=== PATIENT | female | born 1970 | race Caucasian/White ===

== ENCOUNTER → 2016-08-31 | Outpatient (CLI) | payer OTHER ==
--- NOTE | 2016-09-04 13:05 | MM ---
Reason for exam: screening (asymptomatic). Last mammogram was performed 1 year and 4 months ago. History: Patient is postmenopausal and history of other cancer. Family history of premenopausal breast cancer in 2 maternal aunts. Benign left mammotome panel of the left breast, April 07, 2011. Benign left mammotome panel of the left breast, April 07, 2011. Benign excisional biopsy of the left breast, 2003. Benign excisional biopsy of the left breast, 2002. Taking estrogen for 7 years beginning at age 37. Physical Findings: A clinical breast exam by your physician is recommended on an annual basis and results should be correlated with mammographic findings. MG Screening Mammo w CAD Bilateral CC and MLO view(s) were taken. Prior study comparison: May 10, 2015, bilateral MG 3d diag mammo w/cad [facility]. July 17, 2013, CAD bilateral diagnostic mammogram. The breast tissue is almost entirely fat. Previous ultrasound and mammotome biopsy within the left breast. Asymmetric breast tissue in the left breast. No significant changes when compared with prior studies. ASSESSMENT: Benign, BI-RAD 2 RECOMMENDATION: Ultrasound of the left breast. (at palpable) [facility] will attempt to contact patient to return for ultrasound.
== END ==
LOC: RADMAMWWP 15:52
PROVIDERS: ATTEND Family Medicine
DX: Z12.31 Encounter for screening mammogram for malignant neoplasm of breast (principal)

== ENCOUNTER → 2016-10-02 | Outpatient (CLI) | payer OTHER ==
--- NOTE | 2016-10-03 07:09 | USB ---
Reason for exam: additional evaluation requested from abnormal screening. History: Patient is postmenopausal and history of other cancer. Family history of premenopausal breast cancer in 2 maternal aunts. Benign left mammotome panel of the left breast, April 07, 2011. Benign left mammotome panel of the left breast, April 07, 2011. Benign excisional biopsy of the left breast, 2003. Benign excisional biopsy of the left breast, 2002. Taking estrogen for 7 years beginning at age 37. Physical Findings: Nurse did not find any significant physical abnormalities on exam. US Breast Workup Limited LT Left breast ultrasound demonstrates a 0.4 x 0.2 x 0.2cm oval, too small to characterize lesion at 6 o'clock. These results were verbally communicated with the patient and result sheet given to the patient on 10/02/16. ASSESSMENT: Benign, BI-RAD 2 RECOMMENDATION: Return to routine screening mammogram schedule for both breasts. Back on schedule August 2017. Manage patient on a clinical basis.
== END | disposition home or self-care (01) ==
LOC: RADUSWWP 14:31
PROVIDERS: ATTEND Family Medicine
DX: R92.8 Other abnormal and inconclusive findings on diagnostic imaging of breast (principal)

== ENCOUNTER → 2017-04-25 | Outpatient (CLI) | payer OTHER ==
--- NOTE | 2017-04-25 15:12 | US ---
EXAMINATION TYPE: US carotid duplex BILAT DATE OF EXAM: 04/25/2017 COMPARISON: NONE CLINICAL HISTORY: CAD I25.10. EXAM MEASUREMENTS: RIGHT: Peak Systolic Velocity (PSV) cm/sec ----- Right CCA: 83.4 ----- Right ICA: 101.7 ----- Right ECA: 86.2 ICA/CCA ratio: 1.2 RIGHT: End Diastole cm/sec ----- Right CCA: 30.2 ----- Right ICA: 51.2 ----- Right ECA: 21.5 LEFT: Peak Systolic Velocity (PSV) cm/sec ----- Left CCA: 72.9 ----- Left ICA: 89.7 ----- Left ECA: 91.9 ICA/CCA ratio: 1.2 LEFT: End Diastole cm/sec ----- Left CCA: 28.4 ----- Left ICA: 43.5 ----- Left ECA: 24.8 VERTEBRALS (direction of flow): Right Vertebral: Antegrade Left Vertebral: Antegrade Rhythm: Normal No significant stenosis seen, no elevated velocities, minimal plaque noted. IMPRESSION: Minimal grayscale atheromatous plaquing with no sonographic evidence of hemodynamically significant stenosis within either carotid arterial system.
== END | disposition home or self-care (01) ==
LOC: RADUSWWP 13:54
PROVIDERS: ATTEND Family Medicine
DX: I65.23 Occlusion and stenosis of bilateral carotid arteries (principal); I25.10 Atherosclerotic heart disease of native coronary artery without angina pectoris
CPT/HCPCS: 93880

== ENCOUNTER → 2017-08-07 | Outpatient (CLI) | payer OTHER ==
[2017-08-07 12:25] LABS: HCT 42.9 % (34.0-46.0); HGB 14.6 gm/dL (11.4-16.0); MCH 31.1 pg (25.0-35.0); MCHC 33.9 g/dL (31.0-37.0); MCV 91.6 fL (80.0-100.0); Mean Platelet Volume 7.2; Platelet Count 238 k/uL (150-450); RBC 4.69 m/uL (3.80-5.40); RDW 12.1 % (11.5-15.5); WBC 11.5 k/uL (3.8-10.6)
[2017-08-07 12:35] LABS: Appearance,Urine Cloudy (Clear); Bacteria,Urine Rare /hpf; Bilirubin,Urine Negative (Negative); Blood,Urine Negative (Negative); Color,Urine Yellow; Glucose,Urine (UA) Negative (Negative); Ketones,Urine Negative (Negative); Leukocyte Esterase,Urine Negative (Negative); Mucus,Urine Occasional /hpf; PH, Urine 5.5 (5.0-8.0); Protein,Urine Trace (Negative); Specific Gravity,Urine 1.024 (1.001-1.035); Squamous Epithelial Cell,Urine 11 /hpf (0-4); WBC,Urine 1 /hpf (0-5)
[2017-08-07 12:37] LABS: ALT 26 U/L (9-52); AST 16 U/L (14-36); Albumin 3.9 g/dL (3.5-5.0); Alkaline Phosphatase 99 U/L (38-126); Anion Gap 10 mmol/L; Blood Urea Nitrogen 19 mg/dL (7-17); Calcium 9.8 mg/dL (8.4-10.2); Carbon Dioxide 26 mmol/L (22-30); Chloride 105 mmol/L (98-107); Glucose 116 mg/dL (74-99); Phosphorus 3.7 mg/dL (2.5-4.5); Potassium 4.7 mmol/L (3.5-5.1); Sodium 141 mmol/L (137-145); Total Bilirubin 0.3 mg/dL (0.2-1.3); Total Protein 6.8 g/dL (6.3-8.2)
== END | disposition home or self-care (01) ==
LOC: LABWHC1 11:54
PROVIDERS: ATTEND Internal Medicine
DX: D64.9 Anemia, unspecified (principal); E83.39 Other disorders of phosphorus metabolism; N39.0 Urinary tract infection, site not specified
CPT/HCPCS: 36415; 80053; 81001; 84100; 85027

== ENCOUNTER → 2017-08-30 | Outpatient (CLI) | payer OTHER ==
--- NOTE | 2017-08-31 05:26 | MR ---
EXAMINATION TYPE: MR cspine/lspine wo con DATE OF EXAM: 08/30/2017 COMPARISON: MRI cervical spine May 09, 2012. HISTORY: Headache with neck pain causing pain or weakness into both arms since 1998 per patient. Back and hip pain since 1998 causing pain into bilateral buttocks and left lower extremity per patient. N calvin and back pain per order. TECHNIQUE: Multiplanar, multisequence imaging of the cervical and lumbar spine are performed without IV contrast. FINDINGS: C-SPINE: FINDINGS: Coronal images redemonstrate slight dextroconvex scoliotic curvature centered at the cervic othoracic junction. Sagittal images of the cervical spine show the craniocervical junction to remain within normal limits. The cervical and upper thoracic spinal cord is normal in caliber and signal. Vertebral alignment is stable with slight reversal of normal cervical curvature redemonstrated. There is mild disc space narrowing C3-C4 and C5-C6 levels redemonstrated. Otherwise the vertebral body and intravertebral disk heights are normal. Posterior disc herniation is now present at C5-C6 level on sagittal image 8. The bone marrow signal intensity is within normal limits. No significant spurring i s seen. Axial images show the C2-C3 level to appear within normal limits. At C3-C4 level there is some posterior spurring seen best on sagittal image 8 but spinal canal is pre served and bilateral neural foramina are patent. No significant disc herniation is seen. No significa nt change from prior. Axial images at C4-C5 level redemonstrate central disc protrusion on axial images less well seen on s agittal images mildly effacing anterior thecal sac on image 32, bilateral neural foramina are patent. No significant change from prior study is identified. Axial images at C5-C6 level redemonstrate a right paracentral disc protrusion effacing anterior theca l sac without stable with some new marginal spurring and uncovertebral facet arthropathy causing mild left-sided neural foraminal narrowing. Right-sided neural foramina is patent. Progression of degener ative findings at this level is felt present from prior. Axial images at C6-C7 show new small right paracentral disc protrusion mildly effacing the anterior t hecal sac and axial image 18, bilateral neural foramina are patent. Axial images at C7-T1 level are felt to remain within normal limits. Thyroid gland is not well-visualized on this or prior exam and may be small in size. IMPRESSION: Loss of normal cervical curvature with multilevel degenerative changes redemonstrated, so me increased or new degenerative changes are felt present at C5-C6 and C6-C7 level as detailed above. L-SPINE: Sagittal images of the lumbar spine show vertebral body heights and alignment to appear satisfactory. There is progression of multilevel disc desiccation from prior. There is persistent mild to moderat e disc space narrowing L5-S1 level otherwise the space heights are fairly well-maintained. There is p ersistent posterior disc herniation L5-S1 level. The conus medullaris remains normal in position and signal ending at T12-L1 disc space. The bone marrow signal intensity remains overall heterogeneous. No significant spurring is seen. Axial images redemonstrate the T12-L1, L1-L2, L2-L3, L3-L4, and L4-L5 levels all to appear within nor mal limits. Images at L5-S1 level redemonstrated central disc protrusion but the spinal canal is preserved hands the bilateral neural foramina are patent. No significant change from prior. There is partial visualization of 1.6 cm partially exophytic posterior T2 hyperintense lesion in the left kidney axial image 30 increased in size from prior study still favoring simple cyst. IMPRESSION: Some progression in disc desiccation from prior study. Degenerative changes L5-S1 level r edemonstrated without significant interval change.
== END | disposition home or self-care (01) ==
LOC: RADMRIMAIN 17:11
PROVIDERS: ATTEND Family Medicine
DX: M47.817 Spondylosis without myelopathy or radiculopathy, lumbosacral region (principal); M48.02 Spinal stenosis, cervical region; M99.71 Connective tissue and disc stenosis of intervertebral foramina of cervical region; M50.221 Other cervical disc displacement at C4-C5 level; M47.812 Spondylosis without myelopathy or radiculopathy, cervical region; M46.82 Other specified inflammatory spondylopathies, cervical region; M43.8X2 Other specified deforming dorsopathies, cervical region
CPT/HCPCS: 72141; 72148

== ENCOUNTER → 2017-09-25 | Outpatient (CLI) | payer OTHER ==
--- NOTE | 2017-09-26 07:02 | US ---
EXAMINATION TYPE: US kidneys/renal and bladder DATE OF EXAM: 09/25/2017 COMPARISON: 02/25/2016 CLINICAL HISTORY: N28.1 Cyst Of Kidney. Hx of left renal cyst EXAM MEASUREMENTS: Right Kidney: 9.4 x 4.4 x 4.4 cm Left Kidney: 10.0 x 4.3 x 4.7 cm Right Kidney: No hydronephrosis or masses seen Left Kidney: Lateral upper pole cystic appearing lesion seen - 1.9 x 1.9 x 1.8 cm Bladder: Mildly distended. Fold seen. Bilateral Jets not seen IMPRESSION: 1. Cystic area involving the left kidney is stable from prior exam. 2. Limited assessment of the bladder due to incomplete distention
== END | disposition home or self-care (01) ==
LOC: RADUSWWP 15:53
PROVIDERS: ATTEND Internal Medicine
DX: N28.1 Cyst of kidney, acquired (principal)
CPT/HCPCS: 76770

== ENCOUNTER → 2017-09-26 | Outpatient (CLI) | payer OTHER ==
[2017-09-26 11:54] VITALS: BP 117/75; PULSE 72; RESP 20
--- NOTE | 2017-09-26 12:18 | P.PN ---
Progress Note - Text Progress Note Date: 09/26/17 Patient returns for followup for chronic neck and back pain with radiation to left arm and left leg. Patient last underwent procedures at our facility in October 2014 and was last seen in June 2015, at which time she was undergoing quadruple coronary bypass. Patient complains of pain that is worse in her neck ; she has been taking [place] and Lyrica medications for pain from PCP with good relief, but she states he will not prescribe these any longer. Patient denies adverse drug effects from medications. Today, pt denies new-onset weakness, bowel/bladder incontinence, or any other signs or symptoms of cauda equina syndrome. There are no signs of acute intoxication, and no indications of medication diversion or overuse. In addition to above, 13-point review of systems is also negative for chest pain , shortness of breath, changes in vision, changes in hearing, new onset weakness , abdominal pain, diarrhea, extreme fatigue, malaise, fever, skin changes, homicidal or suicidal ideation, or bowel or bladder incontinence. Vital Signs: Reviewed in EMR Gen: WDWN, AAOx3, NAD HEENT: NCAT, EOMI, hearing grossly normal Pulm: resp unlabored Abd: soft, NT, ND Neck: supple, trachea midline ROM in flexion cervical spine: reduced ROM in extension cervical spine: reduced Cervical paravertebral tenderness: + Cervical Facet tenderness: + bilateral, L > R Spurling's: + LUE Upper extremity: decreased rib bender strength secondary to pain Imaging: MRI C-spine from 08/30/2017 demonstrates disc herniation at the C4-C5 level effacing the ventral thecal sac. There is also evidence of uncovertebral joint hypertrophy at multiple levels in the C-spine. In the lumbar spine there is redemonstration of an L5-S1 central disc protrusion. All other levels are within normal limits. Assessment: 1. lumbar disc herniation 2. cervical spondylosis 3. cervical radiculitis Plan: 1. Explanation: Opioid and psychological risk scores were reviewed. Diagnoses , prognoses, and multiple treatment options including but not limited to physical therapy, interventional therapies, adjuvant medical therapies, narcotic medication therapies, and surgery were discussed with the patient and all questions were answered to the patient's satisfaction. 2. Opioid agreement: no opioids prescribed today 3. Counseling: The patient was counseled extensively on SMOKING CESSATION, BODY MASS INDEX, EXERCISE. Specifically, the patient was instructed regarding the importance of smoking cessation, weight control, and exercise in the context of both chronic pain and overall health. 4. Procedures: cervical HAYDEE series C7-T1 5. Consultations: Dr. Henderson for non-interventional pain management 6. Investigations: UDS not done today, MAPS queried and appropriate 7. Medications: none prescribed 8. Disposition: f/u for procedure as scheduled PQRS measures: 1-Patient's medications are documented in the chart. 2-Tobacco use is positive, counseling given 3-Patient has not had a pneumococcal vaccine. 4-Advanced care planning discussed, patient unable to give. 5-Opioid contract signed with the patient. 6-Pain positive, follow-up visit or procedure scheduled 7-Patient's blood pressure measured and documented, and patient will follow up with the primary care due to hypertension. 8-Patient's weight was measured, and body mass index ABOVE the normal limits, and counseling was done. Patient instructed to follow up with PCP. 9-Patient WAS NOT identified as an unhealthy alcohol user.
== END | disposition home or self-care (01) ==
LOC: PNWHC3 11:31
PROVIDERS: ATTEND Anesthesiology
DX: M51.16 Intervertebral disc disorders with radiculopathy, lumbar region (principal); M47.22 Other spondylosis with radiculopathy, cervical region; Z79.891 Long term (current) use of opiate analgesic; Z79.899 Other long term (current) drug therapy
CPT/HCPCS: 99211

== ENCOUNTER 2017-11-07 08:14 | Day surgery (SDC) | payer OTHER ==
[2017-11-01 11:11] VITALS: BMI 26.7
[2017-11-07] MEDS ORDERED: LACTATED RINGERS 1,000 ML IV SCH (08:30)
[2017-11-07 09:01] VITALS: RESP 18; TEMP 97.9
[2017-11-07] MEDS ORDERED: LIDOCAINE 1% 20 ML VIAL (10MG/ML) FOR IV START INTRADERMA ONE (09:17)
--- NOTE | 2017-11-07 09:46 | P.PCN ---
Date of Procedure: 11/07/17 Surgeon: Misael Byrd Pathology: none sent Condition: stable Disposition: PACU Description of Procedure: PREOPERATIVE DIAGNOSIS: Cervical radiculopathy. POSTOPERATIVE DIAGNOSIS: Cervical radiculopathy. PROCEDURE 1. Cervical epidural steroid injection under fluoroscopic guidance, C7-T1 level. 2. Cervical epidurogram. ANESTHESIA: Local anesthesia with 1% lidocaine and IV sedation with versed/ fentanyl. EBL: Minimal PROCEDURE INDICATION: The patient with neck pain and radiculitis unresponsive to conservative treatment consents for procedure, IRINEO #1 today. No use of blood thinners. PROCEDURE DESCRIPTION / TECHNIQUE: The patient was seen and identified in the preoperative area. Risks, benefits, complications, and alternatives were discussed with the patient (including but not limited to incomplete pain relief, bleeding, infection, nerve damage, and allergies to medications), the patient agreed to proceed with the procedure and signed the consent after all questions were answered. Patient was taken to the OR and time out was completed to verify proper patient , position, laterality of pain, and allergies. Pt was placed in the prone position. A pillow was placed under the patients chest to increase the cervical interlaminar space. The cervical area was prepped and draped in the usual sterile fashion. Critical pause was taken. Vital signs were closely monitored during the procedure. Conscious sedation was used during the procedure to decrease patients anxiety. Using anterior-posterior fluoroscopy, the C7-T1 interlaminar space was identified and the skin over this site was marked and then infiltrated with 1% lidocaine subcutaneously in a paramedian fashion. Subsequently, a 20-gauge 3-1/2 -inch Tuohy epidural needle was inserted and advanced toward the epidural space by means of the loss of resistance technique and guided by AP and lateral fluoroscopy. After negative aspiration for blood or CSF and in the absence of paresthesias, the correct needle position in the epidural space was verified with the injection of 1 mL of the water soluble contrast dye Isovue 200 and observing an excellent epidurogram with the epidural spread of the dye, after negative aspiration for blood and CSF and in the absence of paresthesias. Again after negative aspiration, a 3 ml mixture containing 20 mg of Decadron and 1 ml of preservative free Normal Saline solution was injected and a washout of epidurogram was seen. Needle was withdrawn intact, skin was cleansed, and bandages were applied. COMPLICATIONS: None COMMENTS: DISPOSITION / PLANS: The patient was placed in a supine position and transferred to the recovery area in a stable condition for observation. There was no evidence of upper extremity motor or sensory deficit after the procedure. Patient was discharged from the recovery room after meeting discharge criteria. Home discharge instructions were given to the patient by the staff. The patient was reexamined prior to discharge. The patient will schedule a repeat IRINEO in 4-6 weeks.
[2017-11-07] MEDS ORDERED: IV FLUID CONTINUATION 1,000 ML IV ONE (09:48)
--- NOTE | 2017-11-07 09:52 | FL ---
EXAMINATION TYPE: FL guided pain mgmt statistic DATE OF EXAM: 11/07/2017 HISTORY: Pain CERVICAL EPIDURAL STEROID INJECTION, 6SEC FL TIME
[2017-11-07] MEDS ORDERED: ONDANSETRON 4 MG/2 ML VIAL IVP ONE (09:56)
[2017-11-07 10:15] VITALS: BP 102/69; PULSE 64
== END 2017-11-07 10:40 | disposition home or self-care (01) ==
LOC: ORPAIN 08:14
PROVIDERS: ATTEND Anesthesiology
DX: M54.12 Radiculopathy, cervical region (principal); Z88.6 Allergy status to analgesic agent; Z88.5 Allergy status to narcotic agent; Z91.030 Bee allergy status; I10 Essential (primary) hypertension; E78.5 Hyperlipidemia, unspecified
CPT/HCPCS: 62321; J2250; J1100; J2405; J3010; Q9966

== ENCOUNTER 2017-11-22 05:59 | Day surgery (SDC) | payer OTHER ==
[2017-11-19 16:21] VITALS: BMI 27.6
[2017-11-22] MEDS ORDERED: LACTATED RINGERS 1,000 ML IV SCH (06:00)
[2017-11-22 06:31] VITALS: TEMP 98.7
[2017-11-22] MEDS ORDERED: LIDOCAINE 1% 20 ML VIAL (10MG/ML) FOR IV START INTRADERMA ONE (06:44)
[2017-11-22] MEDS ORDERED: IV FLUID CONTINUATION 1,000 ML IV ONE (07:18)
--- NOTE | 2017-11-22 07:21 | P.PCN ---
Date of Procedure: 11/22/17 Procedure(s) Performed: . PROCEDURE 1. Cervical epidural steroid injection under fluoroscopic guidance, C7-T1 2. Cervical epidurogram. PREOPERATIVE DIAGNOSIS: 1- Cervical herniated Disc Diseases 2- Cervical radiculopathy. POSTOPERATIVE DIAGNOSIS: : 1- Cervical herniated Disc Diseases , 2- Cervical radiculopathy. ANESTHESIA: Local anesthesia with 1% lidocaine2 ml ,and IV sedation with Versed 2 mg and Fentanyl 100 mcg. EBL 0 PROCEDURE INDICATION: The patient with neck pain and radiculitis unresponsive to conservative treatment consents for procedure. PROCEDURE DESCRIPTION / TECHNIQUE: The patient was seen and identified in the preoperative area. Risks, benefits, complications, including but not limited to infections ,bleeding , allergic reactions to the medications ,and not complete pain releife, and alternatives were discussed with the patient, the patient agreed to proceed with the procedure and signed the consent. Patient was taken to the OR and time out was completed. The patient was placed in the prone position on the procedure table. A pillow was placed under the patients chest to increase the cervical interlaminar space. The cervical area was prepped and draped in the usual sterile fashion. Vital signs were closely monitored during the procedure. Conscious sedation was used during the procedure to decrease patients anxiety. Using anterior-posterior fluoroscopy, the C7-T1 interlaminar space was identified and the skin over this site was marked and then infiltrated with 1% lidocaine subcutaneously. Subsequently, a 20-gauge 3-1/2-inch Tuohy epidural needle was inserted and advanced toward the epidural space by means of the `` hanging-drop technique and guided by AP and lateral fluoroscopy. The correct needle position in the epidural space was verified with the injection of 2 mL of the water soluble contrast dye Isovue-200 and observing an excellent epidurogram with the epidural spread of the dye, after negative aspiration for blood and CSF and in the absence of paresthesias. Again after negative aspiration, mixture containing 20 mg Dexamethasone and 2 ml of preservative- free normal saline injected and a washout of epidurogram was seen. Needle was withdrawn intact, skin was cleansed, and bandages were applied. Complications= none. Disposition= patient was placed in supine position and transferred to the recovery room area in stable condition and there was no evidence of upper or lower extremity motor or sensory deficit after the procedure patient was discharged from recovery room after discharge criteria met and home discharge instructions was given by the staff and patient will follow with the pain clinic in 2-4 weeks
[2017-11-22] MEDS ORDERED: ONDANSETRON 4 MG/2 ML VIAL IVP ONE (07:28)
[2017-11-22 07:33] VITALS: RESP 16
[2017-11-22 07:44] VITALS: BP 145/69; PULSE 58
--- NOTE | 2017-11-22 08:12 | FL ---
EXAMINATION TYPE: FL guided pain mgmt statistic DATE OF EXAM: 11/22/2017 COMPARISON: NONE HISTORY: Neck and back pain TECHNIQUE: Fluoroscopy. FINDINGS/IMPRESSION: Fluoroscopic guidance was provided during procedure performed by Dr. Mckeon. A total of 1 seconds of fluoroscopic time was utilized during the procedure and 1 spot images was ac quired demonstrating localization of the cervical thoracic spine.
== END 2017-11-22 07:59 | disposition home or self-care (01) ==
LOC: ORPAIN 05:59
PROVIDERS: ATTEND Specialist
DX: M50.10 Cervical disc disorder with radiculopathy, unspecified cervical region (principal); I25.10 Atherosclerotic heart disease of native coronary artery without angina pectoris; E89.0 Postprocedural hypothyroidism; Z86.73 Personal history of transient ischemic attack (TIA), and cerebral infarction without residual deficits; Z88.5 Allergy status to narcotic agent; Z91.030 Bee allergy status
CPT/HCPCS: 62321; J2250; J1100; J2405; J3010; Q9966

== ENCOUNTER → 2018-01-09 | Outpatient (CLI) | payer OTHER | END | disposition home or self-care (01) | LOC: LABWHC1 11:18 | PROVIDERS: ATTEND Family Medicine | DX: M79.662 Pain in left lower leg (principal) | CPT/HCPCS: 36415; 85379 ==

== ENCOUNTER → 2018-08-22 | Outpatient (CLI) | payer OTHER ==
--- NOTE | 2018-08-22 14:52 | XR ---
EXAMINATION TYPE: XR chest 2V DATE OF EXAM: 08/22/2018 COMPARISON: 10/06/2015 HISTORY: 48-year-old female cough and congestion, J20.8 TECHNIQUE: Frontal and lateral views FINDINGS: Heart normal size. Median sternotomy wires are present with post-CABG clips. Stable opacity medial ri ght cardiophrenic angle and at the cardiac apex suggesting a prominent epicardial fat pad. No consoli dation or pleural effusion otherwise seen. IMPRESSION: Stable findings suggesting a prominent epicardial fat pad. No acute cardiopulmonary process.
== END | disposition home or self-care (01) ==
LOC: RADXRMAIN 11:30
PROVIDERS: ATTEND Family Medicine
DX: J20.8 Acute bronchitis due to other specified organisms (principal)
CPT/HCPCS: 71046

== ENCOUNTER → 2018-09-06 | Outpatient (CLI) | payer OTHER ==
[2018-09-06 16:27] LABS: Hepatitis A Antibody IgM Non-Reactive (Non-Reactive); Hepatitis B Core IgM Non-Reactive (Non-Reactive)
[2018-09-06 17:24] LABS: HIV 1 AB Non-Reactive (Non-Reactive); HIV AB P24 Non-Reactive (Non-Reactive); HIV P24 AG Non-Reactive (Non-Reactive)
[2018-09-09 02:55] LABS: Varicella IgM Antibody 0.38 INDEX (<=0.90)
[2018-09-09 05:49] LABS: Herpes simplex IgG I Ab 0.19 (< or = 0.90); Herpes simplex IgG II Ab 0.15 (< or = 0.90)
[2018-09-10 09:27] LABS: Mumps Virus IgM Antibody 0.26 IV (<=0.79)
== END | disposition home or self-care (01) ==
LOC: LABWHC1 10:09
PROVIDERS: ATTEND Family Medicine
DX: I25.10 Atherosclerotic heart disease of native coronary artery without angina pectoris (principal); J42 Unspecified chronic bronchitis; Z95.1 Presence of aortocoronary bypass graft
CPT/HCPCS: 36415; 80074; 86694; 86695; 86696; 86735; 86762; 86765; 86780; 86787; 87390

== ENCOUNTER → 2018-09-20 | Outpatient (CLI) | payer OTHER ==
[~2018-09-20] MED LIST: REGADENOSON 0.4 MG/5 ML SYRINGE IV ONE
--- NOTE | 2018-09-20 10:52 | NM ---
EXAMINATION TYPE: NM stress lexiscan cardiolite DATE OF EXAM: 09/20/2018 COMPARISON: NONE HISTORY: Atrial fibrillation, chest pain, shortness breath, palpitations, hyperlipidemia, prior CVA, prior OH, prior catheterization, family history of coronary artery disease, and history of tobacco ab use TECHNIQUE: After the intravenous administration of 10.02 mCi Tc 99m Sestamibi - Cardiolite resting S PECT images acquired 45 minutes post injection. The patient received 0.4mg Lexiscan, 25.6 mCi Tc 99m Sestamibi - Stress images obtained [address] injection FINDINGS: Review of stress and rest SPECT images demonstrates no reversible perfusion abnormality. There is a fixed moderate defect of the cardiac apex and anterior wall in the distribution of the left anterior descending coronary artery. Gated analysis shows normal wall motion with an estimated left ventricula r ejection fraction of 53 %. TID is calculated at 0.98, within normal limits. IMPRESSION: 1. No scintigraphic evidence for reversible ischemia. 2. Moderate fixed defect indicating prior infarct in the distribution of the left anterior descending coronary artery.
--- NOTE | 2018-09-20 12:39 | EST ---
EXERCISE STRESS DATE OF SERVICE: 09/20/2018 AGE: 48 SEX: Female HT: 5'4" WT: 174 pounds PROTOCOL: Lexiscan Cardiolite STAGE: DURATION OF EXERCISE: HEART RATE REST: 60 BLOOD PRESSURE REST: 127/76 MAXIMUM HEART RATE ACHIEVED: 89 MAXIMUM BLOOD PRESSURE: 164/84 85% MPHR: 100% MPHR: METS: INDICATIONS: Atrial fibrillation. CLINICAL INFORMATION: This is a Lexiscan stress test. Baseline EKG revealed normal sinus rhythm with inferolateral ST-segment abnormality of a nonspecific type. The patient was administered Lexiscan as per protocol. Heart rate changed from 60 to 89 beats per minute. Blood pressure changed from 127/76 to 164/84. The patient did not have any clear-cut angina. She had some chest tightness, pressure. There were isolated PVCs and couplets noted. EKG changes that were noted at baseline became slightly more obvious, but this remains an inconclusive stress test by EKG criteria. The patient did not have any clear-cut angina. By EKG criteria, this is considered as an inconclusive Lexiscan stress test with ventricular ectopy after Lexiscan administration. FINAL IMPRESSION: 1. Inconclusive stress test by EKG criteria. 2. The nuclear scan results which are more pertinent will be reported by the radiologist. MMODL / IJN: [id number] /
== END | disposition home or self-care (01) ==
LOC: RADNMMAIN 07:54
PROVIDERS: ATTEND Family Medicine
DX: I48.91 Unspecified atrial fibrillation (principal); Z88.6 Allergy status to analgesic agent; Z88.8 Allergy status to other drugs, medicaments and biological substances
CPT/HCPCS: 93017; 78452; A9500; J2785

== ENCOUNTER → 2018-10-25 | Outpatient (CLI) | payer OTHER ==
--- NOTE | 2018-10-30 09:15 | P.ARTDOP ---
Arterial Doppler LOWER EXTREMITY ARTERIAL DOPPLER: DATE OF SERVICE: 10/25/2018 Reason for study: Claudication. Doppler waveforms: Multiphasic bilaterally throughout. Pulse volume recording: []. Pressure gradients: Mild gradient across the knee on the left. Ankle-brachial indices: Greater than 1 on the right and 0.93 on the left. Toe pressures: [] on the right, [] on the left Impression: Normal right side. Possible very mild left SFA disease..
== END | disposition home or self-care (01) ==
LOC: RADUSWWP 13:36
PROVIDERS: ATTEND Family Medicine
DX: I70.213 Atherosclerosis of native arteries of extremities with intermittent claudication, bilateral legs (principal)
CPT/HCPCS: 93923

== ENCOUNTER → 2019-03-27 | Outpatient (CLI) | payer OTHER ==
--- NOTE | 2019-03-28 09:21 | MM ---
Reason for exam: screening (asymptomatic). Last mammogram was performed 2 years and 7 months ago. History: Patient is postmenopausal and history of other cancer. Family history of premenopausal breast cancer in 2 maternal aunts. Benign left mammotome panel of the left breast, April 07, 2011. Benign left mammotome panel of the left breast, April 07, 2011. Benign excisional biopsy of the left breast, 2003. Benign excisional biopsy of the left breast, 2002. Taking estrogen for 7 years beginning at age 37. Physical Findings: A clinical breast exam by your physician is recommended on an annual basis and results should be correlated with mammographic findings MG Screening Mammo w CAD Bilateral CC and MLO view(s) were taken. Prior study comparison: August 31, 2016, bilateral MG screening mammo w CAD. May 10, 2015, bilateral MG 3d diag mammo w/cad [facility]. There are scattered fibroglandular densities. Previous mammotome biopsy in the left breast. There is chronic nodularity in the left breast. No significant changes when compared with prior studies. ASSESSMENT: Benign, BI-RAD 2 RECOMMENDATION: Routine screening mammogram of both breasts in 1 year.
== END | disposition home or self-care (01) ==
LOC: RADMAMWWP 10:24
PROVIDERS: ATTEND Family Medicine
DX: Z12.31 Encounter for screening mammogram for malignant neoplasm of breast (principal)
CPT/HCPCS: 77067

== ENCOUNTER → 2019-05-07 | Outpatient (CLI) | payer OTHER ==
--- NOTE | 2019-05-07 11:15 | FL ---
Modified barium swallow. HISTORY: Dysphagia. Modified barium swallow was performed with the department of speech pathology. The patient was prese nted with various consistencies of barium. There is no evidence for aspiration or penetration. Full report is to follow from the department of speech pathology. There may be hypertrophy of the cricopharyngeus musculature. Impression: No evidence for aspiration or penetration. I suspect hypertrophy of the cricopharyngeus m usculature.
== END | disposition home or self-care (01) ==
LOC: RADFLMAIN 10:28
PROVIDERS: ATTEND Family Medicine
DX: R13.10 Dysphagia, unspecified (principal)
CPT/HCPCS: 74230

== ENCOUNTER 2019-06-22 11:34 | Emergency (ER) | payer OTHER ==
[2019-06-22 11:52] VITALS: BP 123/79; PULSE 92; RESP 18; TEMP 97.5
--- NOTE | 2019-06-22 13:36 | XR ---
EXAMINATION TYPE: XR chest 2V DATE OF EXAM: 06/22/2019 HISTORY: cough, sob. REFERENCE: Previous study dated 3 11/22/2018. FINDINGS: There has been a midline sternotomy. Heart size upper limits of normal. There is a right-sided epicardial fat pad. Lungs are clear. Pleura l space are clear. IMPRESSION: BORDERLINE CARDIOMEGALY.
--- NOTE | 2019-06-22 14:23 | ED ---
ENT HPI - General Source: patient Mode of arrival: ambulatory Limitations: no limitations <Bren Walters - Last Filed: 06/22/19 14:50> <Erika Villasenor - Last Filed: 06/25/19 21:39> - General Chief complaint: ENT Stated complaint: med reaction Time Seen by Provider: 06/22/19 12:07 - History of Present Illness Initial comments: Patient is a 48-year-old female presenting to the emergency Department with complaints of a possible ALLERGIC reaction to her antibiotic. Patient was prescribed azithromycin 3 days ago for possible strep throat. Patient states she had one episode of vomiting 2 days ago and then now is having increased and sore throat as well as left ear pain and a continued cough. Patient admits to mild shortness of breath with the cough. No chest pain, no fever. She is very concerned that this cough is affecting her heart. Patient has an extensive heart history and heart disease. She is requesting EKG. Patient denies any nausea, vomiting, diarrhea. She has no other complaints at this time. Upon arrival to the ER, her vital signs are stable. (Bren Walters) - Related Data Home Medications Medication Instructions Recorded Confirmed ALPRAZolam [Xanax] 2 mg PO HS PRN 10/15/13 11/22/17 Buta/APAP/Caf/Cod 75-504-39-30 1 - 2 each PO Q6H PRN 10/15/13 11/22/17 [Fioricet w/Cod 43-343-09-30MG] Dexlansoprazole [Dexilant] 60 mg PO Q48H 10/15/13 11/22/17 Estrogens, Conjugated [Premarin] 0.3 mg PO DAILY PRN 10/15/13 11/22/17 Cholecalciferol [Vitamin D3 (25 2,000 unit PO DAILY 10/29/13 11/22/17 Mcg = 1000 Iu)] Aspirin 81 mg PO DAILY 02/17/15 11/19/17 Linaclotide [Linzess] 145 mcg PO DAILY PRN 02/17/15 11/22/17 Ascorbic Acid [Vitamin C] 2,000 mg PO DAILY 09/26/17 11/19/17 Biotin 5,000 mcg PO DAILY 09/26/17 11/19/17 Iron 18 mg PO DAILY 09/26/17 11/19/17 Levothyroxine Sodium [Levo-T] 150 mcg PO DAILY 09/26/17 11/19/17 Metoprolol Tartrate [Lopressor] 150 mg PO DAILY 10/08/17 11/19/17 Pregabalin [Lyrica] 75 mg PO HS 11/01/17 11/22/17 Rosuvastatin Calcium [Crestor] 10 mg PO Q48H 11/07/17 11/22/17 Naproxen Sodium [Aleve] 440 - 880 mg PO BID PRN 11/19/17 11/22/17 Previous Rx's Medication Instructions Recorded Amoxicillin 500 mg PO BID 5 Days #10 capsule 06/22/19 predniSONE [Deltasone] 20 mg PO BID 5 Days #10 tab 06/22/19 Allergies Allergy/AdvReac Type Severity Reaction Status Date / Time venom-honey bee Allergy Severe Anaphylaxis Verified 06/22/19 11:52 [bee venom (honey bee)] codeine phosphate Allergy Chest Pain Verified 06/22/19 11:52 [From Tylenol-Codeine #3] tramadol HCl [From Ultram] AdvReac Hallucinati Verified 06/22/19 11:52 ons Review of Systems ROS Other: All systems not noted in ROS Statement are negative. <Bren Walters - Last Filed: 06/22/19 14:50> ROS Other: All systems not noted in ROS Statement are negative. <Erika Villasenor - Last Filed: 06/25/19 21:39> ROS Statement: Those systems with pertinent positive or pertinent negative responses have been documented in the HPI. Past Medical History Past Medical History: Atrial Fibrillation, Coronary Artery Disease (CAD), Cancer, Chest Pain / Angina, CVA/TIA, GERD/Reflux, Myocardial Infarction ([place]), Skin Disorder, Thyroid Disorder Additional Past Medical History / Comment(s): 1 LEAKY heart valve, IBS, hx CERVICAL CA, cardiomyopathy, BRONCHITIS, cervical DDD, facet joint syndrome, hx goiter. HX SEPSIS, TIA 11/2016. CYST LT KIDNEY. BLISTERS ON SHOULDERS D/T SUN. Last Myocardial Infarction Date:: 2007 History of Any Multi-Drug Resistant Organisms: None Reported Past Surgical History: Breast Surgery, Cardiac Ablation, Cholecystectomy, Coronary Bypass/CABG, Heart Catheterization, Hysterectomy, Tubal Ligation Additional Past Surgical History / Comment(s): COLONOSCOPY, EGD, THYROIDECTOMY, surgery for CERVICAL CANCER, LT BREAST BX X4, PAIN CLINIC PROCEDURES, LEFT ELBOW surgery, QUADRUPLE BYPASS 2016, MARSHALL eye surgery age 5 Past Anesthesia/Blood Transfusion Reactions: Motion Sickness, Postoperative Nausea & Vomiting (PONV) Past Psychological History: Bipolar, Depression, Panic Disorder Smoking Status: Current every day smoker - Past Family History Father Family Medical History: Cancer <Bren Walters - Last Filed: 06/22/19 14:50> General Exam Limitations: no limitations <Bren Walters - Last Filed: 06/22/19 14:50> - General Exam Comments Initial Comments: GENERAL: Well-appearing, well-nourished and in no acute distress. HEAD: Atraumatic, normocephalic. EYES: Pupils equal round and reactive to light, extraocular movements intact, sclera anicteric, conjunctiva are normal. ENT: Left TM is slightly bulging, mildly erythematous, right TM is normal. Nares patent, oropharynx clear without exudates. Moist mucous membranes. NECK: Normal range of motion, supple without lymphadenopathy or JVD. LUNGS: Breath sounds clear to auscultation bilaterally and equal. No wheezes rales or rhonchi. HEART: Regular rate and rhythm without murmurs, rubs or gallops. ABDOMEN: Soft, nontender, normoactive bowel sounds. No guarding, no rebound. No masses appreciated. : Deferred EXTREMITIES: Normal range of motion, no pitting or edema. No clubbing or cyanosis. NEUROLOGICAL: Normal speech, normal gait. PSYCH: Normal mood, normal affect. SKIN: Warm, Dry, normal turgor, no rashes or lesions noted. (Bren Walters) Course Vital Signs 06/22/19 11:49 Temperature 97.5 F L Pulse Rate 92 Respiratory 18 Rate Blood Pressure 123/79 O2 Sat by Pulse 97 Oximetry Medical Decision Making <Bren Walters - Last Filed: 06/22/19 14:50> <Erika Villasenor - Last Filed: 06/25/19 21:39> - Medical Decision Making Patient is a 48-year-old female presenting with complaints of possible ALLERGIC reaction to azithromycin. She has continued sore throat, cough, left ear pain. Patient was also requesting an EKG secondary to her cough because she has a long heart disease history. Patient's chest x-ray shows no acute abnormalities. EKG shows no acute changes. I discussed with patient that we can discontinue her antibiotic as I do not believe she has strep throat. Patient was highly insistent that she continues with an antibiotic. I discussed with patient that we can change her antibiotics to amoxicillin and also start her on a few days of steroids to help improve her sore throat as well as her cough. Patient is agreeable with this plan of care. Patient will follow up with her PCP and utilization engineer. Return parameters were discussed with the patient she verbalized understanding. Case discussed with Dr. Villasenor. (Bren Walters) I was available for consultation in the emergency department. The history and physical exam were done by the midlevel provider. I was consulted for this patients care. I reviewed the case with the midlevel provider and based on their presentation of the patient, I agree with the assessment, medical decision making and plan of care as documented. Chart was dictated using [employer] dictation software. Attempts were made to correct any dictation errors however some typographical errors may persist. (Erika Villasenor) - EKG Data EKG Comments: Ventricular rate 73, AK interval 118, QTC 445. Normal sinus rhythm. Nonspecific ST and T-wave abnormalities. Similar to previous EKGs. (Bren Walters) Disposition Is patient prescribed a controlled substance at d/c from ED?: No <Bren Walters - Last Filed: 06/22/19 14:50> <Erika Villasenor - Last Filed: 06/25/19 21:39> Clinical Impression: Sore throat, Left ear pain, Viral infection Disposition: HOME SELF-CARE Condition: Stable Instructions (If sedation given, give patient instructions): Earache (ED) Additional Instructions: Please return to the Emergency Department if symptoms worsen or any other concerns. Take steroid and antibiotic as prescribed. Follow-up with PCP and utilization engineer. Prescriptions: Amoxicillin 500 mg PO BID 5 Days #10 capsule predniSONE [Deltasone] 20 mg PO BID 5 Days #10 tab Referrals: Tremayne Dobbs DO [Primary Care Provider] - 1-2 days
== END 2019-06-22 14:45 | disposition home or self-care (01) ==
LOC: EC 11:34
DX: J02.9 Acute pharyngitis, unspecified (principal); B34.9 Viral infection, unspecified; H92.02 Otalgia, left ear; I48.91 Unspecified atrial fibrillation; I25.119 Atherosclerotic heart disease of native coronary artery with unspecified angina pectoris; E07.9 Disorder of thyroid, unspecified; I25.2 Old myocardial infarction; F31.9 Bipolar disorder, unspecified; F17.200 Nicotine dependence, unspecified, uncomplicated; Z79.82 Long term (current) use of aspirin; Z79.890 Hormone replacement therapy; Z79.899 Other long term (current) drug therapy; Z88.5 Allergy status to narcotic agent; Z88.6 Allergy status to analgesic agent; Z91.030 Bee allergy status; Z95.1 Presence of aortocoronary bypass graft; Z86.73 Personal history of transient ischemic attack (TIA), and cerebral infarction without residual deficits; Z85.41 Personal history of malignant neoplasm of cervix uteri
CPT/HCPCS: 71046; 93005; 99283

== ENCOUNTER → 2019-07-30 | Outpatient (CLI) | payer OTHER ==
--- NOTE | 2019-07-30 22:52 | CT ---
EXAMINATION TYPE: CT abdomen pelvis w con DATE OF EXAM: 07/30/2019 HISTORY: Abdomen pain not further specified. Check in stated pt diabetic, pt denies. Confirmed w/ Dr. Dobbs no labs needed. CT DLP: 1399mGycm Automated Exposure Control for Dose Reduction was Utilized. CONTRAST: CT scan of the abdomen and pelvis is performed with oral and with IV Contrast, patient injected with 100 mL of Isovue 300. COMPARISON: CT abdomen and pelvis November 04, 2012 FINDINGS: LUNG BASES: Patchy bibasilar linear scarring and/or atelectasis on current study. Right coronary richard ry stent is partially imaged. There is overlying sternal wires partially imaged. LIVER/GB: Liver is low dense suggesting diffuse fatty infiltration. Cholecystectomy clips noted. PANCREAS: No significant abnormality is seen. SPLEEN: No significant abnormality is seen. ADRENALS: No significant abnormality is seen. KIDNEYS: There is simple appearing 2.1 cm thin-walled cyst posteriorly in the midpole of the left kid luigi axial image 32 increased in size from prior. Roughly 1 cm thin-walled cyst posteriorly medially m id to lower pole of the right kidney image 40 series 7 is now present. Symmetric cortical medullary u ptake and excretion without hydronephrosis seen bilaterally. BOWEL: Oral contrast reaches level of proximal sigmoid colon. No suspicious small or large bowel dila tation is seen. UTERUS/ADNEXA: Uterus surgically absent or markedly atrophic similar to prior. Remnant right ovary re demonstrated normal in size axial image 71. Remnant left ovary axial image 68 normal in size more ant erior in position. LYMPH NODES: No greater than 1cm abdominal or pelvic lymph nodes are appreciated. OSSEOUS STRUCTURES: Moderate disc space narrowing lumbosacral junction. OTHER: No significant additional abnormality is seen. IMPRESSION: No significant acute finding is seen to account for patient's clinical symptoms of nonspe cific abdominal pain.
== END | disposition home or self-care (01) ==
LOC: RADCTMAIN 15:25
PROVIDERS: ATTEND Family Medicine
DX: R10.9 Unspecified abdominal pain (principal)
CPT/HCPCS: 74177; Q9967

== ENCOUNTER → 2019-08-06 | Outpatient (CLI) | payer OTHER ==
--- NOTE | 2019-08-06 21:40 | MR ---
MRI CERVICAL SPINE: CLINICAL HISTORY: Headaches with neck pain causing left upper extremity weakness and numbness. TECHNIQUE: Multiplanar, multisequence imaging of the cervical spine is performed without IV contrast. COMPARISON: MRI cervical spine August 30, 2017. FINDINGS: Coronal images redemonstrate levoconvex scoliotic curvature centered in the upper thoracic spine. Sagittal images of the cervical spine show the craniocervical junction to remain within normal limits. The cervical and upper thoracic spinal cord is normal in caliber and signal. Vertebral ali gnment is stable with some reversal of normal cervical curvature on sagittal images centered C3-C4 le kaylee. The vertebral body heights are normal. Persistent mild disc space narrowing C3-C4 and C5-C6 lev els. The bone marrow signal intensity remains within normal limits. Axial images show the C2-C3 level to remain within normal limits. Axial images at C3-C4 level small central spur disc complex mildly effacing anterior thecal sac, bila teral neural foramina are patent. No significant change from prior. Axial images at C4-C5 level show focal central disc protrusion effacing the anterior thecal sac with some uncovertebral facet degenerative changes causing mild to moderate left and mild right-sided neur al foraminal narrowing, some progression of left-sided neural foraminal narrowing felt present from p rior MRI. Axial images at C5-C6 level show uncovertebral facet degenerative changes bilaterally along with righ t paracentral disc protrusion mildly facing anterior thecal sac, there is [id number] left-sided neural foraminal narrowing. No significant change from prior MRI. Axial images at C6-C7 level redemonstrates small right paracentral disc protrusion mildly effacing th e anterolateral thecal sac on axial image 16, bilateral neural foramina are patent. No significant ch hany from prior. Axial images at C7-T1 level remain within normal limits. Thyroid gland remains not well visualized suggesting small in size or atrophy, correlate clinically. IMPRESSION: Reversal of normal cervical curvature with multilevel degenerative changes redemonstrated as detailed above. Some progression in degenerative changes noted C4-C5 level otherwise no significa nt interval change from most recent MRI.
== END | disposition home or self-care (01) ==
LOC: RADMRIMAIN 18:24
PROVIDERS: ATTEND Family Medicine
DX: M47.22 Other spondylosis with radiculopathy, cervical region (principal)
CPT/HCPCS: 72141

== ENCOUNTER 2019-12-02 08:43 | Day surgery (SDC) | payer OTHER ==
[2019-11-28 10:08] VITALS: BMI 30.9
[~2019-12-02 08:43] MED LIST changes: +LACTATED RINGERS 1,000 ML IV SCH; -REGADENOSON 0.4 MG/5 ML SYRINGE IV ONE
[2019-12-02 09:03] VITALS: TEMP 98.3
[2019-12-02] MEDS ORDERED: LACTATED RINGERS 1,000 ML IV ONE (09:16)
[2019-12-02] MEDS ORDERED: LIDOCAINE 1% (10MG/ML) FOR IV START INTRADERMA ONE (09:17)
[2019-12-02 09:19] LABS: Glucose,Whole Blood 88 mg/dL (75-99)
[2019-12-02] MEDS ORDERED: PROPOFOL 10 MG/ML 20 ML VIAL IV ONE (09:58)
[2019-12-02] MEDS ORDERED: LIDOCAINE 1% INJ 10MG/ML (20 ML MDV) ONE (09:58)
--- NOTE | 2019-12-02 10:07 | P.GSHP ---
History of Present Illness H&P Date: 12/02/19 Chief Complaint: Epigastric pain 49-year-old female with complaints of upper abdominal pain. Feels a bulge there that is sore to the touch. Pain worsens with eating. Past Medical History Past Medical History: Atrial Fibrillation, Coronary Artery Disease (CAD), Cancer, Chest Pain / Angina, CVA/TIA, GERD/Reflux, Myocardial Infarction ([place]), Skin Disorder, Thyroid Disorder Additional Past Medical History / Comment(s): LEAKY heart valve, IBS, hx CERVICAL CA, cardiomyopathy, BRONCHITIS, cervical DDD, facet joint syndrome, hx goiter. HX SEPSIS, TIA 11/2016. CYST LT KIDNEY. , hx stomach ulcer, states starting on prednisone dose pack for "sun poisoning". Last Myocardial Infarction Date:: 2007 History of Any Multi-Drug Resistant Organisms: None Reported Past Surgical History: Breast Surgery, Cardiac Ablation, Cholecystectomy, Coronary Bypass/CABG, Heart Catheterization, Hysterectomy, Tubal Ligation Additional Past Surgical History / Comment(s): COLONOSCOPY, EGD, THYROIDECTOMY, surgery for CERVICAL CANCER, LT BREAST BX X4, PAIN CLINIC PROCEDURES, LEFT ELBOW surgery, QUADRUPLE BYPASS 2015, MARSHALL eye surgery age 5, THYROIDECTOMY. Past Anesthesia/Blood Transfusion Reactions: Motion Sickness, Postoperative Nausea & Vomiting (PONV) Additional Past Anesthesia/Blood Transfusion Reaction / Comment(s): SOME DIFFICULTY WAKING UP. DAUGHTER HAS DIFFICULTY WAKING UP . Past Psychological History: Anxiety, Bipolar, Depression, Panic Disorder Additional Psychological History / Comment(s): . Smoking Status: Current every day smoker Past Alcohol Use History: Rare Additional Past Alcohol Use History / Comment(s): Smoking 1/2 ppd. She started smoking in 1983 Past Drug Use History: Marijuana Additional Drug Use History / Comment(s): CBD OIL AND EIBLES FOR PAIN - Past Family History Father Family Medical History: Cancer Medications and Allergies Home Medications Medication Instructions Recorded Confirmed Type ALPRAZolam [Xanax] 2 mg PO TID PRN 10/15/13 11/28/19 History Buta/APAP/Caf/Cod 50-375-15-30 1 - 2 each PO TID PRN 10/15/13 11/28/19 History [Fioricet w/Cod 25-869-14-30MG] Cholecalciferol [Vitamin D3 (25 5,000 unit PO DAILY 10/29/13 11/28/19 History Mcg = 1000 Iu)] Aspirin 81 mg PO DAILY 02/17/15 11/28/19 History Biotin 5,000 mcg PO DAILY 09/26/17 11/28/19 History Levothyroxine Sodium [Levo-T] 150 mcg PO DAILY 09/26/17 11/28/19 History Pregabalin [Lyrica] 75 mg PO BID 11/01/17 11/28/19 History Cannabidiol (Cbd) Extract 1 dose PO DIRECTED PRN 11/28/19 11/28/19 History [Epidiolex] HYDROcodone/APAP 10-325MG [Warrens 1 tab PO Q6HR PRN 11/28/19 11/28/19 History 10-325] Metoprolol 25 mg PO DAILY 11/28/19 12/02/19 History Omeprazole [PriLOSEC] 40 mg PO DAILY 11/28/19 11/28/19 History Prednisone Dose Pack 1 dose PO DAILY 11/28/19 12/02/19 History Allergies Allergy/AdvReac Type Severity Reaction Status Date / Time venom-honey bee Allergy Severe Anaphylaxis Verified 11/28/19 09:32 [bee venom (honey bee)] codeine phosphate Allergy Chest Pain Verified 11/28/19 09:52 [From Tylenol-Codeine #3] tramadol HCl [From Ultram] AdvReac Hallucinati Verified 11/28/19 09:32 ons BIPOLAR MEDICATION AdvReac Unknown States it Uncoded 11/28/19 09:53 "knocks her out" Surgical - Exam Vital Signs Temp Pulse Resp BP Pulse Ox 98.3 F 74 18 181/95 96 12/02/19 09:02 12/02/19 09:02 12/02/19 09:02 12/02/19 09:02 12/02/19 09:02 Physical exam: General: Well-developed, well-nourished HEENT: Normocephalic, sclerae nonicteric Abdomen: Nontender, nondistended Extremities: No edema Neuro: Alert and oriented Assessment and Plan (1) Epigastric pain Narrative/Plan: Will proceed with upper endoscopy. Current Visit: Yes Status: Acute Code(s): R10.13 - EPIGASTRIC PAIN SNOMED Code(s): 99005753
--- NOTE | 2019-12-02 10:14 | P.PCN ---
Date of Procedure: 12/02/19 Procedure(s) Performed: Preoperative Dx: Epigastric pain Postoperative Dx: Mild gastritis, small hiatal hernia Procedure: EGD with Bx Anesthesia: Sedation Endoscopist: Dr. Nath Specimens: Antrum Endoscopic Procedure: The patient was on the endoscopy table in the left decubitus position. The Olympus gastroscope was inserted into the oropharynx and passed under direct visualization to the region of the third portion of the duodenum. From that point the scope was slowly withdrawn inspecting all surfac es carefully. There were no neoplastic inflammatory or polypoid lesions throughout the duodenum. The pylorus was widely patent. The stomach was carefully inspected. There was mild gastritis present. A biopsy of the antrum took place to rule out H. pylori. Retroflexion revealed a small sliding hiatal hernia. The esophagus was then carefully examined. There were no neoplastic inflammatory or polypoid lesions throughout the visualized esophagus. The patient was then taken to the recovery room in stable condition per anesthesia guidelines. Recommendations: Await biopsies results. Continue antiacids.
[2019-12-02 10:29] VITALS: BP 164/83; PULSE 83; RESP 17
== END 2019-12-02 10:53 | disposition home or self-care (01) ==
LOC: ORWHC2ENDO 08:43
PROVIDERS: ATTEND Surgery
DX: K29.50 Unspecified chronic gastritis without bleeding (principal); K44.9 Diaphragmatic hernia without obstruction or gangrene; E11.9 Type 2 diabetes mellitus without complications; N61.1 Abscess of the breast and nipple; E03.9 Hypothyroidism, unspecified; I10 Essential (primary) hypertension; G89.29 Other chronic pain; Z90.49 Acquired absence of other specified parts of digestive tract; E89.0 Postprocedural hypothyroidism; Z98.890 Other specified postprocedural states; I48.91 Unspecified atrial fibrillation; I25.10 Atherosclerotic heart disease of native coronary artery without angina pectoris; Z86.73 Personal history of transient ischemic attack (TIA), and cerebral infarction without residual deficits; K21.9 Gastro-esophageal reflux disease without esophagitis; I25.2 Old myocardial infarction; L55.9 Sunburn, unspecified; E07.9 Disorder of thyroid, unspecified; I38 Endocarditis, valve unspecified; K58.9 Irritable bowel syndrome, unspecified; Z85.41 Personal history of malignant neoplasm of cervix uteri; F17.210 Nicotine dependence, cigarettes, uncomplicated; I42.9 Cardiomyopathy, unspecified; M50.30 Other cervical disc degeneration, unspecified cervical region; Z80.9 Family history of malignant neoplasm, unspecified; Z86.19 Personal history of other infectious and parasitic diseases; Z95.1 Presence of aortocoronary bypass graft; Z98.51 Tubal ligation status; F41.9 Anxiety disorder, unspecified; F31.9 Bipolar disorder, unspecified; F41.0 Panic disorder [episodic paroxysmal anxiety]; Z87.09 Personal history of other diseases of the respiratory system; Z87.11 Personal history of peptic ulcer disease; Z97.2 Presence of dental prosthetic device (complete) (partial); Z90.710 Acquired absence of both cervix and uterus; Z79.890 Hormone replacement therapy; Z79.891 Long term (current) use of opiate analgesic; Z79.899 Other long term (current) drug therapy; Z79.82 Long term (current) use of aspirin; Z88.5 Allergy status to narcotic agent; Z88.8 Allergy status to other drugs, medicaments and biological substances; Z91.030 Bee allergy status
CPT/HCPCS: 43239; 88305; J2001; J2704

== ENCOUNTER 2020-07-20 07:39 | Day surgery (SDC) | payer OTHER ==
[2020-07-15 15:30] VITALS: BMI 30.9
[~2020-07-20 07:39] MED LIST changes: +LIDOCAINE 1% (10MG/ML) FOR IV START INTRADERMA PRN; +MIDAZOLAM 2 MG/2 ML VIAL IV PRN
[2020-07-20 08:06] VITALS: TEMP 97.7
[2020-07-20 08:08] LABS: Glucose,Whole Blood 112 mg/dL (75-99)
[2020-07-20] MEDS ORDERED: PROPOFOL 10 MG/ML 20 ML VIAL IV ONE (08:35)
--- NOTE | 2020-07-20 08:37 | P.GSHP ---
History of Present Illness H&P Date: 07/20/20 Chief Complaint: Colon cancer screening Patient here today for screening colonoscopy. She has not had 1 previously. No family history of colon cancer however her mother did have colon polyps. No bowel complaints. Past Medical History Past Medical History: Atrial Fibrillation, Coronary Artery Disease (CAD), Cancer, Chest Pain / Angina, CVA/TIA, GERD/Reflux, Myocardial Infarction ([place]), Skin Disorder, Thyroid Disorder Additional Past Medical History / Comment(s): LEAKY heart valve, IBS, hx CERVICAL CA, cardiomyopathy, BRONCHITIS, cervical DDD, facet joint syndrome, hx goiter. HX SEPSIS, TIA 11/2016. CYST LT KIDNEY. , hx stomach ulcer, ON METFORMIN TO LOSE WT. NOT DIATBETIC Last Myocardial Infarction Date:: 2007 History of Any Multi-Drug Resistant Organisms: None Reported Past Surgical History: Breast Surgery, Cardiac Ablation, Cholecystectomy, Coronary Bypass/CABG, Heart Catheterization, Hysterectomy, Tubal Ligation Additional Past Surgical History / Comment(s): COLONOSCOPY, EGD, THYROIDECTOMY, surgery for CERVICAL CANCER, LT BREAST BX X4, PAIN CLINIC PROCEDURES, LEFT ELBOW surgery, QUADRUPLE BYPASS 2016, MARSHALL eye surgery age 5, Past Anesthesia/Blood Transfusion Reactions: Motion Sickness, Postoperative Nausea & Vomiting (PONV) Additional Past Anesthesia/Blood Transfusion Reaction / Comment(s): SOME DIFFICULTY WAKING UP. DAUGHTER HAS DIFFICULTY WAKING UP . Smoking Status: Current every day smoker - Past Family History Father Family Medical History: Cancer Medications and Allergies Home Medications Medication Instructions Recorded Confirmed Type ALPRAZolam [Xanax] 2 mg PO TID PRN 10/15/13 07/15/20 History Buta/APAP/Caf/Cod 86-965-14-30 1 - 2 each PO TID PRN 10/15/13 07/15/20 History [Fioricet w/Cod 99-731-92-30MG] Cholecalciferol [Vitamin D3 (25 5,000 unit PO DAILY 10/29/13 07/15/20 History Mcg = 1000 Iu)] Aspirin 81 mg PO DAILY 02/17/15 07/15/20 History Levothyroxine Sodium [Levo-T] 150 mcg PO DAILY 09/26/17 07/15/20 History Pregabalin [Lyrica] 75 mg PO DAILY 11/01/17 07/15/20 History HYDROcodone/APAP 10-325MG [Peel 1 tab PO Q6HR PRN 11/28/19 07/15/20 History 10-325] Metoprolol 25 mg PO DAILY 11/28/19 07/15/20 History Omeprazole [PriLOSEC] 40 mg PO BID 11/28/19 07/15/20 History metFORMIN HCL 500 mg PO DAILY 07/15/20 07/15/20 History Allergies Allergy/AdvReac Type Severity Reaction Status Date / Time venom-honey bee Allergy Severe Anaphylaxis Verified 07/20/20 07:49 [bee venom (honey bee)] codeine phosphate Allergy Chest Pain Verified 07/20/20 07:49 [From Tylenol-Codeine #3] tramadol HCl [From Ultram] AdvReac Hallucinati Verified 07/20/20 07:49 ons BIPOLAR MEDICATION AdvReac Unknown States it Uncoded 07/20/20 07:49 "knocks her out" Surgical - Exam Vital Signs Temp Pulse Resp BP Pulse Ox 97.7 F 85 17 138/85 96 07/20/20 08:05 07/20/20 08:05 07/20/20 08:05 07/20/20 08:05 07/20/20 08:05 Physical exam: General: Well-developed, well-nourished HEENT: Normocephalic, sclerae nonicteric Abdomen: Nontender, nondistended Extremities: No edema Neuro: Alert and oriented Results - Labs Abnormal Lab Results - Last 24 Hours (Table) 07/20/20 Range/Units 08:03 POC Glucose (mg/dL) 112 H (75-99) mg/dL Assessment and Plan (1) Colon cancer screening Narrative/Plan: Will proceed with colonoscopy at this time Current Visit: Yes Status: Acute Code(s): Z12.11 - ENCOUNTER FOR SCREENING FOR MALIGNANT NEOPLASM OF COLON SNOMED Code(s): 026596543
--- NOTE | 2020-07-20 08:56 | P.PCN ---
Date of Procedure: 07/20/20 Procedure(s) Performed: PREOPERATIVE DIAGNOSIS: Colon cancer screening POSTOPERATIVE DIAGNOSIS: Mild diverticulosis PROCEDURE: Colonoscopy ANESTHESIA: MAC SURGEON: Sarkis Nath M.D. SPECIMENS: none ENDOSCOPIC PROCEDURE: The patient was placed on the endoscopy table in the left decubitus position. The Olympus colonoscope was inserted into the anus and passed under direct visualization to the base of the cecum. The appendiceal orifice was visualized. From that point the scope was slowly withdrawn inspecting all surfaces carefully. There were no neoplastic inflammatory or polypoid lesions throughout the cecum, ascending, transverse, descending, sigmoid and rectum. There was mild left sided diverticulosis noted. Digital rectal examination was normal. The patient was taken to the recovery room in stable condition per anesthesia guidelines. RECOMMENDATIONS: Resume diet. Follow-up colonoscopy 10 years.
[2020-07-20 09:09] VITALS: RESP 16
[2020-07-20 09:19] VITALS: BP 136/88; PULSE 72
== END 2020-07-20 09:39 | disposition home or self-care (01) ==
LOC: ORWHC2ENDO 07:39
PROVIDERS: ATTEND Surgery
DX: Z12.11 Encounter for screening for malignant neoplasm of colon (principal); K57.30 Diverticulosis of large intestine without perforation or abscess without bleeding; I48.91 Unspecified atrial fibrillation; I25.10 Atherosclerotic heart disease of native coronary artery without angina pectoris; K21.9 Gastro-esophageal reflux disease without esophagitis; I25.2 Old myocardial infarction; I38 Endocarditis, valve unspecified; K58.9 Irritable bowel syndrome, unspecified; N28.1 Cyst of kidney, acquired; E89.0 Postprocedural hypothyroidism; Z83.71 Family history of colonic polyps; Z98.890 Other specified postprocedural states; Z86.73 Personal history of transient ischemic attack (TIA), and cerebral infarction without residual deficits; Z87.2 Personal history of diseases of the skin and subcutaneous tissue; Z85.41 Personal history of malignant neoplasm of cervix uteri; Z87.11 Personal history of peptic ulcer disease; Z79.84 Long term (current) use of oral hypoglycemic drugs; Z90.49 Acquired absence of other specified parts of digestive tract; Z95.1 Presence of aortocoronary bypass graft; Z90.710 Acquired absence of both cervix and uterus; Z98.51 Tubal ligation status; Z87.898 Personal history of other specified conditions; Z91.89 Other specified personal risk factors, not elsewhere classified; Z79.82 Long term (current) use of aspirin; Z79.890 Hormone replacement therapy; Z79.899 Other long term (current) drug therapy; Z91.030 Bee allergy status; Z88.5 Allergy status to narcotic agent; Z88.8 Allergy status to other drugs, medicaments and biological substances; Z97.2 Presence of dental prosthetic device (complete) (partial); Z84.89 Family history of other specified conditions; Z80.9 Family history of malignant neoplasm, unspecified
CPT/HCPCS: J2704; G0105

== ENCOUNTER → 2021-04-25 | Outpatient (CLI) | payer OTHER ==
--- NOTE | 2021-04-25 22:55 | XR ---
EXAMINATION TYPE: XR chest 2V, XR thoracic spine 3 views complete DATE OF EXAM: 04/25/2021 COMPARISON: Chest 06/22/2019 HISTORY: 50-year-old female following month ago, back pain, thoracic pain. FINDINGS: CHEST: MEDIAN sternotomy wires are present with post-CABG clips mediastinum. Heart upper limits of normal in size. Relative upper lung lucencies. Hazy lower lung opacities likely relating to overlying soft tis irais density. No definite consolidation, pneumothorax, or pleural effusion effusion allowing for this limitation. THORACIC SPINE: 12 rib-bearing thoracic vertebral bodies. Grade 1 anterolisthesis at T3-T4 on the swimmer's view. Acc entuated midthoracic kyphosis of moderate multilevel degenerative disc disease. Otherwise, vertebral body heights are preserved and remaining alignment is maintained. IMPRESSION: 1. Chest: Hazy lower lung densities likely relating to overlying soft tissue. Prior median sternotomy and post-CABG changes. Possible underlying emphysema. No acute cardiopulmonary process. 2. Thoracic spine: Moderate degenerative disc disease and accentuated mid thoracic kyphosis. Degenera tive grade 1 anterolisthesis at T3-T4. No vertebral compression collapse.
== END | disposition home or self-care (01) ==
LOC: RADXRMAIN 12:19
PROVIDERS: ATTEND Family Medicine
DX: M51.34 Other intervertebral disc degeneration, thoracic region (principal); M40.299 Other kyphosis, site unspecified
CPT/HCPCS: 71046; 72072

== ENCOUNTER 2021-12-19 08:18 | Day surgery (SDC) | payer OTHER ==
[2021-12-15 12:10] VITALS: BMI 30.9
--- NOTE | 2021-12-19 08:11 | P.GSHP ---
History of Present Illness H&P Date: 12/19/21 Chief Complaint: Incisional hernia 51-year-old female seen in the office in November. Complaining of upper abdominal bulge. Patient has a hernia related to her previous bypass surgery. Has mild pain and increased swelling there. No nausea or vomiting. Past Medical History Past Medical History: Atrial Fibrillation, Coronary Artery Disease (CAD), Cancer, Chest Pain / Angina, CVA/TIA, GERD/Reflux, Myocardial Infarction ([place]), Skin Disorder, Thyroid Disorder Additional Past Medical History / Comment(s): LEAKY heart valve, IBS, hx CERVICAL CA, cardiomyopathy, BRONCHITIS, cervical DDD, facet joint syndrome, hx goiter. HX SEPSIS, TIA 11/2016. CYST LT KIDNEY. hx stomach ulcer. Last Myocardial Infarction Date:: 2007 History of Any Multi-Drug Resistant Organisms: None Reported Past Surgical History: Breast Surgery, Cardiac Ablation, Cholecystectomy, Coronary Bypass/CABG, Heart Catheterization, Hysterectomy, Orthopedic Surgery, Tubal Ligation Additional Past Surgical History / Comment(s): THYROIDECTOMY, surgery for CERVICAL CANCER, LT BREAST BX X4, PAIN CLINIC PROCEDURES, LEFT ELBOW surgery, QUADRUPLE BYPASS 2016, MARSHALL eye surgery age 5. Past Anesthesia/Blood Transfusion Reactions: Motion Sickness, Postoperative Nausea & Vomiting (PONV) Additional Past Anesthesia/Blood Transfusion Reaction / Comment(s): SOME DIFFICULTY WAKING UP. DAUGHTER HAS DIFFICULTY WAKING UP . Past Psychological History: Anxiety, Bipolar, Depression, Panic Disorder Smoking Status: Former smoker Past Alcohol Use History: Rare Additional Past Alcohol Use History / Comment(s): RECENTLY QUIT SMOKING Past Drug Use History: Marijuana Additional Drug Use History / Comment(s): CBD OIL AND EDIBLES FOR PAIN - Past Family History Father Family Medical History: Cancer Mother Additional Family Medical History / Comment(s): QUESTIONABLE "HEART PROBLEM AND TRIPLE BYPASS" Medications and Allergies Home Medications Medication Instructions Recorded Confirmed Type ALPRAZolam [Xanax] 2 mg PO DAILY 10/15/13 12/15/21 History Buta/APAP/Caf/Cod 36-120-21-30 1 - 2 each PO TID PRN 10/15/13 12/15/21 History [Fioricet w/Cod 27-887-36-30MG] Cholecalciferol [Vitamin D3 (25 3,000 unit PO DAILY 10/29/13 12/15/21 History Mcg = 1000 Iu)] Aspirin 81 mg PO DAILY 02/17/15 12/15/21 History Levothyroxine Sodium [Levo-T] 175 mcg PO DAILY 09/26/17 12/15/21 History HYDROcodone/APAP 10-325MG [[place] 1 tab PO Q6HR PRN 11/28/19 12/15/21 History 10-325] Albuterol Inhaler [Ventolin Hfa 2 puff INHALATION RT-TID PRN 12/15/21 12/15/21 History Inhaler] Atorvastatin [Lipitor] 20 mg PO DAILY 12/15/21 12/15/21 History Famotidine [Pepcid] 20 mg PO BID 12/15/21 12/15/21 History Metoprolol Tartrate 25 mg PO DAILY 12/15/21 12/15/21 History Sucralfate [Carafate] 1 gm PO BID 12/15/21 12/15/21 History Allergies Allergy/AdvReac Type Severity Reaction Status Date / Time venom-honey bee Allergy Severe Anaphylaxis Verified 12/15/21 11:53 [bee venom (honey bee)] codeine phosphate Allergy Chest Pain Verified 12/15/21 11:53 [From Tylenol-Codeine #3] tramadol HCl [From Ultram] AdvReac Hallucinati Verified 12/15/21 11:53 ons BIPOLAR MEDICATION AdvReac Unknown States it Uncoded 12/15/21 11:53 "knocks her out" Surgical - Exam Physical exam: General: Well-developed, well-nourished HEENT: Normocephalic, sclerae nonicteric Abdomen: Nontender, nondistended, subxiphoid reducible hernia Extremities: No edema Neuro: Alert and oriented Assessment and Plan (1) Incisional hernia Narrative/Plan: 51-year-old female with incisional hernia. We'll proceed with open repair with mesh at this time. Risks of bleeding, infection, recurrence, bladder and bowel injury, numbness, nerve injury were discussed with the patient. The patient understands and wishes to proceed. Status: Acute Code(s): K43.2 - INCISIONAL HERNIA WITHOUT OBSTRUCTION OR GANGRENE SNOMED Code(s): 035265097
[~2021-12-19 08:18] MED LIST changes: +ACETAMINOPHEN TAB 500 MG TAB PO PRN; +HEPARIN SODIUM,PORCINE/PF 5,000 UNIT/0.5 ML SYRINGE SQ PRN; -LACTATED RINGERS 1,000 ML IV SCH; -LIDOCAINE 1% (10MG/ML) FOR IV START INTRADERMA PRN; -MIDAZOLAM 2 MG/2 ML VIAL IV PRN
[2021-12-19] MEDS ORDERED: LIDOCAINE 1% (10MG/ML) FOR IV START INTRADERMA PRN (08:34)
[2021-12-19] MEDS ORDERED: HYDROmorphone 0.5 MG/0.5 ML SYRINGE IVP PRN (08:34)
[2021-12-19] MEDS ORDERED: LACTATED RINGERS 1,000 ML IV SCH (08:34)
[2021-12-19] MEDS ORDERED: METOCLOPRAMIDE 5 MG/ML 2 ML VIAL IVP PRN (08:34)
[2021-12-19] MEDS ORDERED: DEXAMETHASONE SOD PHOSPHATE 4 MG/ML 1 ML VIAL IV ONE (08:34)
[2021-12-19] MEDS ORDERED: ONDANSETRON 4 MG/2 ML VIAL IVP ONE (08:34)
[2021-12-19] MEDS ORDERED: SCOPOLAMINE 1 MG/72 HR PATCH TRANSDERM ONE (08:34)
[2021-12-19 08:55] LABS: Glucose,Whole Blood 107 mg/dL (70-110)
[2021-12-19] MEDS ORDERED: fentaNYL (PF) 50 MCG/ML 2 ML AMP ONE (10:18)
[2021-12-19] MEDS ORDERED: NEOSTIGMINE 1 MG/ML 10 ML VIAL ONE (10:18)
[2021-12-19] MEDS ORDERED: LIDOCAINE 2% INJ 20 MG/ML (2 ML VIAL) ONE (10:18)
[2021-12-19] MEDS ORDERED: MIDAZOLAM 2 MG/2 ML VIAL ONE (10:18)
[2021-12-19] MEDS ORDERED: ROCURONIUM 10 MG/ML (5 ML VIAL) IV ONE (10:18)
[2021-12-19] MEDS ORDERED: GLYCOPYRROLATE 0.2 MG/ML 2 ML VIAL ONE (10:18)
[2021-12-19] MEDS ORDERED: HYDROmorphone (PF) 1 MG/ML ONE (10:18)
[2021-12-19] MEDS ORDERED: ePHEDrine 50 MG/ML 1 ML VIAL ONE (10:18)
[2021-12-19] MEDS ORDERED: PROPOFOL 10 MG/ML 20 ML VIAL IV ONE (10:18)
[2021-12-19] MEDS ORDERED: SUCCINYLCHOLINE CHLORIDE 100 MG/5 ML SYR IV ONE (10:18)
[2021-12-19] MEDS ORDERED: BUPIVACAIN-EPI 0.25%-1:200,000 30 ML VIAL SQ ONE (10:27)
--- NOTE | 2021-12-19 11:49 | P.OP ---
Date of Procedure: 12/19/21 Procedure(s) Performed: PREOPERATIVE DIAGNOSIS: Incisional hernia POSTOPERATIVE DIAGNOSIS: Same PROCEDURE: Open repair incisional hernia with mesh SURGEON: Dr. Nath ANESTHESIA: General OPERATIVE PROCEDURE DETAILS: Patient placed on the operating table in the supine position. Abdomen was prepped and draped in usual sterile fashion. The lower aspect of the previous sternotomy incision was incised and this was brought inferiorly. Dissection through the subcutaneous fat took place using electrocautery. The incisional hernia defect was identified. The hernia contents were reduced back into the preperitoneal space. The preperitoneal space was fully dissected circumferentially including along the diaphragm superiorly and underneath the xiphoid process as well. The hernia defect measured 5 cm in length by 4 cm in width. An 8 cm ventral ex mesh was placed beneath the fascia. This was sutured in place using trans-fascial 0 Ethibond sutures. The defect was then using [id number] interrupted #2 Ethibond sutures. The subcutaneous tissues were closed using 3-0 Vicryl sutures. The skin was closed using a running 4-0 Monocryl suture. Skin glue was applied. Sterile dressings were applied. HERNIA CHARACTERISTICS: Length: 5 cm Width: 4 cm Type: Reducible incisional TYPE OF MESH USED: 8 cm round ventral ex LOCATION OF MESH: Sub-lay FIXATION: Trans-fascial 0 Ethibond PREOPERATIVE DISCUSSION ON SMOKING CESSASTION: Yes PREOPERATIVE DISCUSSION ON MORBID OBESITY: Yes PREOPERATIVE DISCUSSION ON APPROPRIATE USE OF NARCOTIC USE: Yes PREOPERATIVE EDUCATION: Multi Modal, Smoking Cessation and Weight Loss with BMI over 35. DISPOSITION: Stable to recovery room
[2021-12-19 11:51] VITALS: TEMP 96.9
[2021-12-19] MEDS ORDERED: ACETAMINOPHEN TAB 325 MG TAB PO SCH (12:00)
[2021-12-19 12:17] VITALS: RESP 16
[2021-12-19] MEDS ORDERED: HYDROcodone/APAP 10-325MG 1 EACH TAB ONE (14:01)
[2021-12-19] MEDS ORDERED: HYDROcodone/APAP 10-325MG 1 EACH TAB PO ONE (14:02)
[2021-12-19 14:17] VITALS: BP 126/76; PULSE 76
[2021-12-19] MEDS ORDERED: IBUPROFEN 600 MG TAB PO SCH (14:45)
== END 2021-12-19 14:46 | disposition home or self-care (01) ==
LOC: OR 08:18
PROVIDERS: ATTEND Surgery
DX: K43.2 Incisional hernia without obstruction or gangrene (principal); I25.10 Atherosclerotic heart disease of native coronary artery without angina pectoris; I48.0 Paroxysmal atrial fibrillation; K21.9 Gastro-esophageal reflux disease without esophagitis; E07.9 Disorder of thyroid, unspecified; I25.2 Old myocardial infarction; K58.9 Irritable bowel syndrome, unspecified; I42.9 Cardiomyopathy, unspecified; F41.9 Anxiety disorder, unspecified; F41.0 Panic disorder [episodic paroxysmal anxiety]; F31.9 Bipolar disorder, unspecified; M50.30 Other cervical disc degeneration, unspecified cervical region; Z95.1 Presence of aortocoronary bypass graft; Z90.710 Acquired absence of both cervix and uterus; Z85.41 Personal history of malignant neoplasm of cervix uteri; Z87.19 Personal history of other diseases of the digestive system; Z87.891 Personal history of nicotine dependence; Z79.899 Other long term (current) drug therapy; Z79.82 Long term (current) use of aspirin; Z79.890 Hormone replacement therapy; Z88.5 Allergy status to narcotic agent; Z88.8 Allergy status to other drugs, medicaments and biological substances; Z91.030 Bee allergy status; Z88.6 Allergy status to analgesic agent; Z82.49 Family history of ischemic heart disease and other diseases of the circulatory system
CPT/HCPCS: 49560; 49568; C1781; J2250; J1100; J2710; J0690; J2405; J3010; J1170 ×2; J0330; J2704; J1644; J2001

== ENCOUNTER → 2022-04-18 | Outpatient (CLI) | payer OTHER ==
--- NOTE | 2022-04-18 12:42 | XR ---
EXAMINATION TYPE: XR foot complete RT DATE OF EXAM: 04/18/2022 12:37 PM INDICATION: Patient age:Female; 51 years old; Reason for study: M72.2 PLANTAR FASCIAL FIBROMATOSIS; PHH. COMPARISON: None TECHNIQUE: The right foot was examined in the AP, oblique, and lateral projections. FINDINGS: No evidence of any acute osseous pathology. No evidence of soft tissue swelling. Joints are preserve d. Incidental note is made of symphalangism of the fifth distal interphalangeal joint. No abnormal ca lcifications. IMPRESSION: No evidence of acute fracture.
== END | disposition home or self-care (01) ==
LOC: RADXRMAIN 12:20
PROVIDERS: ATTEND Family Medicine
DX: M72.2 Plantar fascial fibromatosis (principal)

== ENCOUNTER → 2022-08-21 | Outpatient (CLI) | payer OTHER ==
--- NOTE | 2022-08-21 10:57 | XR ---
EXAMINATION TYPE: XR abdomen 1V DATE OF EXAM: 08/21/2022 10:25 AM CLINICAL HISTORY: GERD. Constipation. Abdominal wall hernia. TECHNIQUE: Two Upright KUB images of the abdomen are obtained. COMPARISON: CT abdomen and pelvis July 30, 2019. FINDINGS: Gas is seen in nondistended stomach. Scattered gas is seen in non-distended small bowel loo ps. Gas and fecal material is seen in non-distended colon. Cholecystectomy clips are present displace d clip into the pelvis is redemonstrated. Occasional scattered tiny pelvic phlebolith. No free air. L roger bases are clear. Slight underlying levoconvex scoliosis is present. IMPRESSION: Overall nonobstructive bowel gas pattern.
== END | disposition home or self-care (01) ==
LOC: RADXRMAIN 10:02
PROVIDERS: ATTEND Family Medicine
DX: K21.00 Gastro-esophageal reflux disease with esophagitis, without bleeding (principal); K59.00 Constipation, unspecified; R12 Heartburn; K46.9 Unspecified abdominal hernia without obstruction or gangrene
CPT/HCPCS: 74018

== ENCOUNTER 2022-09-18 20:38 | Inpatient (IN) | payer OTHER ==
[2022-09-18] MEDS ORDERED: VERAPAMIL 2.5 MG/ML 2 ML AMP ONE (20:49)
[2022-09-18] MEDS ORDERED: LIDOCAINE 1% INJ 10MG/ML (20 ML MDV) ONE (20:49)
[2022-09-18] MEDS ORDERED: IV FLUID CONTINUATION 1,000 ML IV ONE (21:10)
[2022-09-18] MEDS ORDERED: fentaNYL (PF) 50 MCG/ML 2 ML AMP ONE (21:17)
[2022-09-18] MEDS ORDERED: LIDOCAINE 1% INJ 10MG/ML (30 ML VIAL-PF) SQ ONE (21:18)
[2022-09-18] MEDS ORDERED: fentaNYL (PF) 50 MCG/1 ML VIAL IV ONE (21:20)
[2022-09-18] MEDS ORDERED: MIDAZOLAM 2 MG/2 ML VIAL IV ONE (21:20)
[2022-09-18] MEDS ORDERED: HEPARIN SODIUM 1,000 UN/ML (10ML VL) ONE (21:33)
[2022-09-18] MEDS ORDERED: TICAGRELOR 90 MG TAB ONE (21:34)
[2022-09-18] MEDS ORDERED: TICAGRELOR 90 MG TAB PO ONE (21:35)
[2022-09-18] MEDS: HEPARIN SODIUM 1,000 UN/ML (10ML VL) IV ONE ×2 (21:40→21:55)
[2022-09-18] MEDS ORDERED: IOPAMIDOL-370 125ML BTL INJ ONE (21:58)
[2022-09-18] MEDS ORDERED: IOPAMIDOL-370 100ML BTL INJ ONE (22:14)
--- NOTE | 2022-09-18 22:24 | CONS ---
CONSULTATION CHIEF COMPLAINT: Chest pain. HISTORY OF PRESENT ILLNESS: This is a 52-year-old lady with history of severe three-vessel coronary artery disease, status post bypass surgery with MCMILLAN to LAD, venous graft to OM1, OM2, and the right coronary artery, who regularly sees Dr. Lopez in the office, came to the ER complaining of chest pain, 8/10 intensity, that started around 12 o'clock today. Her blood pressures were poorly controlled on her initial presentation, and her first set of troponin came back elevated at 10,290. The second set of troponin came back further elevated at 16,000. The patient was on adequate therapy including heparin and nitroglycerin and continued to have chest pain, due to which, I transferred her to [facility] for emergent cardiac catheterization. She understands risks, benefits, and alternatives. At the time of my evaluation, she appears comfortable at rest, still has chest discomfort, stable hemodynamically. Her labs show a hemoglobin of 14.2. Platelet count is 255. Creatinine is 0.8. AST and ALT are within normal limits. She had a CT chest that was negative for pulmonary embolism. EKG shows sinus rhythm, intraventricular conduction delay, ST-segment depression diffusely with ST elevation in aVL. PAST MEDICAL HISTORY: Significant for CAD, status post CABG. MEDICATIONS: ALLERGIES: None. FAMILY HISTORY: Negative for premature coronary artery disease. SOCIAL HISTORY: Significant for smoking. There is no history of EtOH or drug abuse. REVIEW OF SYSTEMS: review of systems has been performed. Pertinences are as documented. PHYSICAL EXAMINATION: GENERAL: Comfortable at rest. VITAL SIGNS: Stable. CHEST: Reveals good air entry bilaterally. HEART: Reveals first and second heart sounds. No gallop. ABDOMEN: Soft. EXTREMITIES: Did not reveal any edema. Peripheral pulses are felt. ASSESSMENT: Acute coronary syndrome in a patient with known coronary artery disease, status post coronary artery bypass grafting. PLAN: The patient will undergo emergent cardiac catheterization for further evaluation. MMODL / IJN: [id number] /
[2022-09-18] MEDS ORDERED: NITROGLYCERIN SL TABS 0.4 MG TAB SUBLINGUAL PRN (22:25)
[2022-09-18] MEDS ORDERED: ZOLPIDEM 5 MG TAB PO PRN (22:25)
[2022-09-18] MEDS ORDERED: MAG HYDROX/AL HYDROX/SIMETH 30 ML CUP PO PRN (22:25)
[2022-09-18] MEDS ORDERED: ATROPINE SULFATE 0.1 MG/ML 10ML SYRINGE IV PRN (22:25)
--- NOTE | 2022-09-18 22:35 | P.CARDCATH ---
Date of Procedure: 09/18/22 Description of Procedure: PERCUTANEOUS TRANSLUMINAL CORONARY ANGIOPLASTY CLINICAL INFORMATION: The patient is a 52-year-old female with known history of CAD, status post CABG who presented with an acute non-STEMI and persistent chest discomfort, she was transferred to [facility] and underwent cardiac catheterization by Dr Campa and was found to have occluded SVG to the OM. Recommendations were made regarding angioplasty and stenting. The procedure as well as the risks and the complications were discussed with the patient who was in full understanding and agreement. PROCEDURE: A 6 Chinese LCB guiding catheter was introduced into the system. After cannulating the ostium of the saphenous vein graft, a 0.014 BMW J-wire with a fine cross catheter was advanced across the lesion and positioned distally. Subsequently defined cross catheter was removed and an export catheter was advanced and one pass was done. Following that a 2.5 x 12 Treck balloon was advanced and inflated at 8 atmosphere. After removing the balloon export catheter was advanced and thrombotic material was removed. Following that a 3.5 X 28 mm Xience paul point stent was deployed. It was dilated at 14 lauren. After removing the balloon 3.75 x 20 mm NC Treck balloon was advanced and one inflation was done. After the last inflation, after appropriate wait, the balloon and the guidewire were withdrawn back into the guiding catheter. Images were obtained and repeated. Those images reveal stable successful stenting. At that point, the guiding catheter, the balloon, and guidewire were removed. A 6- Chinese RCB catheter was introduced and images of the SVG to the RCA were performed. The sheath was removed. Hemostasis was obtained with deployment of an Angio-Seal. There were no immediate complications. The patient was returned to the room in stable condition. Of note, the patient received 5500 units of heparin as well as Brilinta. His ACT was followed. There was no immediate complications. Her chest discomfort resolved at the end of the procedure, her ACT was monitored RESULTS: Successful stenting of the SVG to the OM with reduction of stenosis from 100 % to less than 5 %. Patent SVG to the RCA with good distal flow RECOMMENDATIONS: The patient will continue on dual antiplatelet treatment with aspirin and Brilinta for one year without any interruption in addition to aggressive coronary risks modification. The findings and recommendations were discussed with the patient and the family, they are in full understanding and agreement. Duration of sedation: 36 minutes
[2022-09-18 22:39] LABS: Glucose,Whole Blood 154 mg/dL (70-110)
[2022-09-19 06:15] LABS: African American GFR (CKD) >90 (>60 ml/min/1.73 sqM); Anion Gap 5 mmol/L; Blood Urea Nitrogen 7 mg/dL (7-17); Calcium 8.3 mg/dL (8.4-10.2); Carbon Dioxide 28 mmol/L (22-30); Chloride 103 mmol/L (98-107); Glucose 131 mg/dL (74-99); Non-African American GFR(CKD) >90 (>60 ml/min/1.73 sqM); Potassium 4.7 mmol/L (3.5-5.1); Sodium 136 mmol/L (137-145)
[2022-09-19] MEDS: LEVOTHYROXINE 88 MCG TAB PO SCH (07:11)
[2022-09-19] MEDS: SODIUM CHLORIDE 0.9% 1,000 ML in EMPTY BAG 1 BAG IV SCH ×3 (07:11→22:32)
--- NOTE | 2022-09-19 07:24 | P.PN ---
Subjective Progress Note Date: 09/19/22 PROGRESS NOTE The patient is a 52-year-old female with known history of coronary disease, hyperlipidemia, status post CABG in 2014 who presented with an acute non-STEMI and underwent cardiac catheterization was found to have occluded saphenous vein graft to the OM, probably OM2 that appears to be chronic with acute occlusion of a saphenous vein graft to probably OM 1, she underwent angioplasty and stenting of that graft. She's feeling better this morning. She has no anginal pain. Her breathing is stable. She is in sinus mechanism and hemodynamically stable. She denies any dizziness or palpitations. No nausea. Medications: Aspirin, Lipitor 80 mg daily, Zestril 2.5 mg twice a day, metoprolol tartrate 25 mg twice a day, Brilinta 90 mg twice a day PHYSICAL EXAMINATION: Blood pressure 120/80 heart rate 90 LUNGS: Clear to auscultation HEART: Regular rate and rhythm, S1, S2. No S3. systolic ejection murmur ABDOMEN: Soft, nontender, no organomegaly EXTREMETIES: No edema, right groin no hematoma LAB: Potassium 4.7, BUN 7, creatinine 0.58 IMPRESSION: 1. Status post acute non-STEMI stenting of the SVG to the OM 2. Status post CABG in 2014 with patent MCMILLAN to the LAD and SVG to the RCA 3. History of hypertension 4. History of hyperlipidemia PLAN: 1. Continue present therapy 2. Increase physical activity 3. Obtain an echocardiogram with Doppler 4. Transfer to telemetry in p.m. if stable 5. Depending on her blood pressure response the dose of her SUMAYA inhibitor will be adjusted. Objective - Vital Signs Vital signs: Vital Signs Temp 98.3 F 09/19/22 04:00 Pulse 90 09/19/22 07:00 Resp 35 H 09/19/22 07:00 BP 121/86 09/19/22 07:00 Pulse Ox 95 09/19/22 07:00 FiO2 Intake & Output 09/18/22 09/19/22 09/19/22 18:59 06:59 18:59 Intake Total 755.5 86.5 Output Total 1100 0 Balance -344.5 86.5 Weight 85.6 kg Intake: IV 150 Intake, IV Titration 605.5 86.5 Amount Sodium Chloride 0.9% 1, 605.5 86.5 000 ml In Empty Bag 1 bag @ 1 ML/KG/HR 86.5 mls/hr IV .[id number] [facility] Rx#: [id number] Output: Urine 1100 0 Other: Voiding Method Bedpan - Labs CBC & Chem 7: 09/19/22 03:23 Labs: Abnormal Lab Results - Last 24 Hours (Table) 09/18/22 09/19/22 Range/Units 22:38 03:23 Sodium 136 L (137-145) mmol/L Glucose 131 H (74-99) mg/dL POC Glucose (mg/dL) 154 H (70-110) mg/dL Calcium 8.3 L (8.4-10.2) mg/dL
--- NOTE | 2022-09-19 07:51 | CC ---
CARDIAC CATHETERIZATION REPORT INDICATION: Acute [id number] elevation LA. PROCEDURE NOTE: After obtaining informed consent, left heart catheterization, coronary angiogram and selective injection of the bypass grafts has been performed with the right femoral artery using right and left Helio and pigtail catheter. The patient tolerated the procedure well without any obvious immediate complications. She received moderate conscious sedation. Total sedation time was 18 minutes. The patient had MCMILLAN to LAD, venous graft to OM1, OM2, and PDA at the time of bypass surgery. We could document MCMILLAN to LAD and the 2 venous grafts to the circ. We have not been able to document the venous graft to the right coronary artery. FINDINGS: 1. HEMODYNAMICS: Left ventricular end-diastolic pressure is 28 mm. There is no significant gradient across the aortic valve. 2. LEFT VENTRICULOGRAM: Left ventriculogram is not performed. 3. ANGIOGRAPHIC DATA: [place] coronary arteries: a.Right coronary artery is totally occluded in its proximal portion. b.Left main coronary artery shows 95% stenosis. Circ is totally occluded proximally. c. LAD appears 100% occluded proximally. d. MCMILLAN to LAD is patent. e. Venous graft to OM1 is occluded. f.Venous graft to OM2 seems to be acutely occluded with thrombus sitting in the graft. I could not selectively document the venous graft to the right coronary artery. Hopefully, the delinquent notice machine operator will do it at the end of the angioplasty. CONCLUSION: Severe three-vessel coronary artery disease with patent MCMILLAN to LAD, occluded venous graft to OM1 and acutely occluded venous graft to OM2. PLAN: Dr. Flannery will attempt angioplasty with stent placement of the venous graft to the OM. MMODL / IJN: [id number] /
[2022-09-19] MEDS ORDERED: ALBUTEROL NEBULIZED 2.5 MG/3 ML INHALATION PRN (09:09)
[2022-09-19] MEDS: TICAGRELOR 90 MG TAB PO SCH ×2 (09:57→21:13)
[2022-09-19] MEDS: METOPROLOL TARTRATE 25 MG TAB PO SCH ×2 (09:57→21:13)
[2022-09-19] MEDS: ASPIRIN 81 MG PO SCH (09:57)
[2022-09-19] MEDS: HYDROcodone/APAP 10-325MG 1 EACH TAB PO SCH ×2 (10:32→18:52)
--- NOTE | 2022-09-19 11:12 | CA ---
Transthoracic Echo Report Name: Sia Wade Age: 52 Gender: F : 1970 Exam Date: 09/19/2022 07:52 Exam Location: [place] [facility] Ht (in): 64 Wt (lb): 188 Ordering Physician: Sonia Bourne MD ([id number]) Attending/Referring Phys: Doctor Of Audiology Valente Long RDCS Procedure CPT: Indications: MA Cardiac Hx: Technical Quality: Fair Contrast 1: Total Dose (mL): Contrast 2: Total Dose (mL): MEASUREMENTS (Male / Female) Normal Values 2D ECHO LV Diastolic Diameter PLAX 4.7 cm 4.2 - 5.9 / 3.9 - 5.3 cm LV Systolic Diameter PLAX 3.6 cm LV Fractional Shortening PLAX 23.1 % IVS Diastolic Thickness 1.2 cm 0.6 - 1.0 / 0.6 - 0.9 cm IVS Systolic Thickness 1.6 cm LVPW Diastolic Thickness 1.3 cm 0.6 - 1.0 / 0.6 - 0.9 cm LVPW Systolic Thickness 1.9 cm LV Relative Wall Thickness 0.5 RV Internal Dim ED PLAX 3.3 cm LVOT Diameter 1.9 cm LA Systolic Diameter LX 3.8 cm 3.0 - 4.0 / 2.7 - 3.8 cm LV Diastolic Volume MOD BP 85.8 cm??? 67 - 155 / 56 - 104 cm??? LV Systolic Volume MOD BP 46.1 cm??? 22 - 58 / 19 - 49 cm??? LV Ejection Fraction MOD BP 46.2 % >= 55 % LV Stroke Volume MOD BP 39.7 cm??? LV Diastolic Volume MOD 4C 76.1 cm??? LV Systolic Volume MOD 4C 41.1 cm??? LV Ejection Fraction MOD 4C 45.9 % LV Stroke Volume MOD 4C 35.0 cm??? LV Diastolic Length 4C 7.1 cm LV Systolic Length 4C 6.1 cm LV Diastolic Volume MOD 2C 84.6 cm??? LV Systolic Volume MOD 2C 41.7 cm??? LV Ejection Fraction MOD 2C 50.7 % LV Stroke Volume MOD 2C 42.9 cm??? LV Diastolic Length 2C 6.1 cm LV Systolic Length 2C 4.8 cm Ascending Aorta Diameter 2.5 cm M-MODE Aortic Root Diameter MM 3.0 cm LA Systolic Diameter MM 5.0 cm LA Ao Ratio MM 1.7 MV E Point Septal Separation 1.0 cm AV Cusp Separation MM 1.8 cm DOPPLER AV Peak Velocity 133.8 cm/s AV Peak Gradient 7.2 mmHg MV Deceleration [place] 797.0 cm/s??? MR Peak Velocity 415.5 cm/s MR Peak Gradient 69.1 mmHg MR Mean Velocity 354.1 cm/s MR Mean Gradient 55.2 mmHg MR Velocity Time Integral 132.3 cm Mitral E Point Velocity 76.0 cm/s Mitral A Point Velocity 54.0 cm/s Mitral E to A Ratio 1.4 MV Deceleration Time 95.4 ms MV E' Velocity 7.4 cm/s Mitral E to MV E' Ratio 10.3 TR Peak Velocity 136.2 cm/s TR Peak Gradient 7.4 mmHg Right Ventricular Systolic Press 15.4 mmHg PV Peak Velocity 95.6 cm/s PV Peak Gradient 3.7 mmHg FINDINGS Left Ventricle Moderate LV systolic dysfunction with an ejection fraction of 40% Inferoposterior wall is hypokinetic Mild concentric left ventricular hypertrophy. Grade 2 diastolic dysfunction. Normal basal systolic function. Right Ventricle Normal right ventricular size and function. Right Atrium Normal right atrial size. Left Atrium Normal left atrial size. Mitral Valve Mitral valve thickened. Moderate mitral regurgitation. Aortic Valve Trileaflet aortic valve. Tricuspid Valve Mild tricuspid regurgitation. Pulmonic Valve Trace to mild pulmonic regurgitation. Pericardium Normal pericardium. Echo free space anterior to the right ventricle likely represents a fat pad. Aorta Normal size aortic root and proximal ascending aorta. CONCLUSIONS Ischemic cardiomyopathy with an ejection fraction of 40% Moderate mitral regurgitation Previewed by: Dr. Christian Campa MD (Electronically Signed) Final Date: 19 September 2022 11:11
[2022-09-19 11:56] VITALS: BMI 32.3
--- NOTE | 2022-09-19 13:54 | P.HPIM ---
History of Present Illness H&P Date: 09/19/22 History of present illness; patient is a 52-year-old lady with past medical history significant for coronary artery disease status post CABG, hyperlipidemia who presented to the [facility] ER because of chest pain. Patient stated the chest pain started on day of admission around noontime, central in location, 8 x 10 intensity, nonradiating, no aggravating or relieving factors associated with this chest pain. Patient was seen by cardiology, patient was found to have elevated troponin, patient was immediately transferred to [facility] for emergent cardiac cath. Patient underwent cardiac cath with successful stenting of the SVG to the OM. Patient was admitted to ICU for postcardiac care REVIEW OF SYSTEMS: CONSTITUTIONAL: No fever, no malaise, no fatigue. HEENT: No recent visual problems or hearing problems. Denied any sore throat. CARDIOVASCULAR: As mentioned in HPI PULMONARY: No shortness of breath, no cough, no hemoptysis. GASTROINTESTINAL: No diarrhea, no nausea, no vomiting, no abdominal pain. NEUROLOGICAL: No headaches, no weakness, no numbness. HEMATOLOGICAL: Denies any bleeding or petechiae. GENITOURINARY: Denies any burning micturition, frequency, or urgency. MUSCULOSKELETAL/RHEUMATOLOGICAL: Denies any joint pain, swelling, or any muscle pain. ENDOCRINE: Denies any polyuria or polydipsia. The rest of the 14-point review of systems is negative. PHYSICAL EXAMINATION: GENERAL: The patient is alert and oriented x3, not in any acute distress. Well developed, well nourished. HEENT: Pupils are round and equally reacting to light. EOMI. No scleral icterus. No conjunctival pallor. Normocephalic, atraumatic. No pharyngeal erythema. No thyromegaly. CARDIOVASCULAR: S1 and S2 present. No murmurs, rubs, or gallops. PULMONARY: Chest is clear to auscultation, no wheezing or crackles. ABDOMEN: Soft, nontender, nondistended, normoactive bowel sounds. No palpable organomegaly. MUSCULOSKELETAL: No joint swelling or deformity. EXTREMITIES: No cyanosis, clubbing, or pedal edema. NEUROLOGICAL: Gross neurological examination did not reveal any focal deficits. SKIN: No rashes. Assessment and plan NSTEMI Acute hypoxemic respiratory failure Hypertension Hypothyroidism History of coronary artery disease status post CABG Plan; Monitor vital signs Monitor CBC Monitor CMP Encourage use of I-S Continue oxygen supplementation, try to wean down oxygen Ordered chest x-ray Continue dual antiplatelet therapy in the form of aspirin and brilinta Continue Lopressor. Continue lisinopril Continue Synthroid. Follow-up on cardiology recommendations Past Medical History Past Medical History: Atrial Fibrillation, Coronary Artery Disease (CAD), Cancer, Chest Pain / Angina, CVA/TIA, GERD/Reflux, Myocardial Infarction (WA), Skin Disorder, Thyroid Disorder Additional Past Medical History / Comment(s): LEAKY heart valve, IBS, hx CERVICAL CA, cardiomyopathy, BRONCHITIS, cervical DDD, facet joint syndrome, hx goiter. HX SEPSIS, TIA 11/2016. CYST LT KIDNEY. hx stomach ulcer. Last Myocardial Infarction Date:: 2007 History of Any Multi-Drug Resistant Organisms: None Reported Past Surgical History: Breast Surgery, Cardiac Ablation, Cholecystectomy, Coronary Bypass/CABG, Heart Catheterization, Hysterectomy, Orthopedic Surgery, Tubal Ligation Additional Past Surgical History / Comment(s): THYROIDECTOMY, surgery for CERVICAL CANCER, LT BREAST BX X4, PAIN CLINIC PROCEDURES, LEFT ELBOW surgery, QUADRUPLE BYPASS 2016, MARSHALL eye surgery age 5. Past Anesthesia/Blood Transfusion Reactions: Motion Sickness, Postoperative Nausea & Vomiting (PONV) Additional Past Anesthesia/Blood Transfusion Reaction / Comment(s): SOME DIFFICULTY WAKING UP. DAUGHTER HAS DIFFICULTY WAKING UP . Past Psychological History: Anxiety, Bipolar, Depression, Panic Disorder Smoking Status: Current every day smoker Past Alcohol Use History: Rare Additional Past Alcohol Use History / Comment(s): RECENTLY QUIT SMOKING Past Drug Use History: Marijuana Additional Drug Use History / Comment(s): CBD OIL AND EDIBLES FOR PAIN - Past Family History Father Family Medical History: Cancer Mother Additional Family Medical History / Comment(s): QUESTIONABLE "HEART PROBLEM AND TRIPLE BYPASS" Medications and Allergies Home Medications Medication Instructions Recorded Confirmed Type ALPRAZolam [Xanax] 2 mg PO BID PRN 10/15/13 09/18/22 History Aspirin 81 mg PO DAILY 02/17/15 09/18/22 History HYDROcodone/APAP 10-325MG [[place] 1 tab PO Q6HR 11/28/19 09/18/22 History 10-325] Albuterol Inhaler [Ventolin Hfa 2 puff INHALATION RT-Q6H PRN 12/15/21 09/18/22 History Inhaler] Famotidine [Pepcid] 20 mg PO BID 12/15/21 09/18/22 History Metoprolol Tartrate 25 mg PO DAILY 12/15/21 09/18/22 History Sucralfate [Carafate] 1 gm PO TID 12/15/21 09/18/22 History Amoxicillin 875 mg PO BID 09/18/22 09/18/22 History Butalb/APAP/Caff 50-325-40Mg 1 tab PO Q8H PRN 09/18/22 09/18/22 History [Fioricet 50-325-40] Citalopram Hydrobromide [CeleXA] 10 mg PO DAILY 09/18/22 09/18/22 History Isosorbide Mononitrate ER [Imdur] 30 mg PO DAILY 09/18/22 09/18/22 History Levothyroxine Sodium [Synthroid] 175 mcg PO DAILY 09/18/22 09/18/22 History Lovastatin [Mevacor] 40 mg PO W/SUPPER 09/18/22 09/18/22 History methylPREDNISolone Dose Pack See Taper PO DIRECTED 09/18/22 09/18/22 History [Medrol Dose Pack] Allergies Allergy/AdvReac Type Severity Reaction Status Date / Time venom-honey bee Allergy Severe Anaphylaxis Verified 09/18/22 22:31 [bee venom (honey bee)] codeine phosphate Allergy Chest Pain Verified 09/18/22 22:31 [From Tylenol-Codeine #3] tramadol HCl [From Ultram] AdvReac Hallucinati Verified 09/18/22 22:31 ons BIPOLAR MEDICATION AdvReac Unknown States it Uncoded 12/19/21 08:48 "knocks her out" Physical Exam Vitals: Vital Signs Temp Pulse Resp BP Pulse Ox 09/19/22 07:00 90 35 H 121/86 95 09/19/22 06:00 97 23 133/86 90 L 09/19/22 05:00 102 H 13 131/89 89 L 09/19/22 04:00 98.3 F 93 24 121/87 93 L 09/19/22 03:00 93 18 136/87 92 L 09/19/22 02:00 93 17 135/89 93 L 09/19/22 01:00 93 27 H 136/92 91 L 09/19/22 00:50 23 136/92 91 L 09/19/22 00:40 94 36 H 135/91 91 L 09/19/22 00:30 95 25 H 135/90 93 L 09/19/22 00:20 94 26 H 135/90 96 09/19/22 00:10 29 H 131/95 92 L 09/19/22 00:00 98.5 F 95 20 140/91 87 L 09/18/22 23:50 26 H 90 L 09/18/22 23:40 93 39 H 138/91 91 L 09/18/22 23:30 92 31 H 129/91 96 09/18/22 23:20 23 129/91 85 L 09/18/22 23:10 95 21 131/80 88 L 09/18/22 23:00 97.5 F L 95 29 H 131/80 94 L 09/18/22 22:50 93 21 88 L 09/18/22 22:40 96 23 09/18/22 22:38 30 H Intake and Output 09/18/22 09/19/22 09/19/22 22:59 06:59 14:59 Intake Total 150 605.5 86.5 Output Total 1100 0 Balance 150 -494.5 86.5 Intake: IV 150 Intake, IV Titration 605.5 86.5 Amount Sodium Chloride 0.9% 1, 605.5 86.5 000 ml In Empty Bag 1 bag @ 1 ML/KG/HR 86.5 mls/hr IV .[id number] [facility] Rx#: [id number] Output: Urine 1100 0 Other: Voiding Method Bedpan Weight 86.5 kg 85.6 kg Results CBC & Chem 7: 09/19/22 03:23 Labs: Abnormal Lab Results - Last 24 Hours (Table) 09/18/22 09/19/22 Range/Units 22:38 03:23 Sodium 136 L (137-145) mmol/L Glucose 131 H (74-99) mg/dL POC Glucose (mg/dL) 154 H (70-110) mg/dL Calcium 8.3 L (8.4-10.2) mg/dL Thrombosis Risk Factor Assmnt - Choose All That Apply Each Factor Represents 1 point: Acute [place], Age 41-60 years, Obesity (BMI >25) Other Risk Factors: No Other congenital or acquired thrombophilia - If yes, enter type in comment: No Thrombosis Risk Factor Assessment Total Risk Factor Score: 3 Thrombosis Risk Factor Assessment Level: Moderate Risk
[2022-09-19] MEDS: SUCRALFATE 1 GM TAB PO SCH ×2 (16:13→22:33)
[2022-09-19] MEDS: ALPRAZolam 1 MG TAB PO PRN ×2 (16:33→22:38)
[2022-09-19 16:36] LABS: Chol/HDL Ratio 3.33 Ratio; LDL Cholesterol,Calculated 65.4 mg/dL (0.0-131.0)
--- NOTE | 2022-09-19 17:09 | XR ---
EXAMINATION TYPE: XR chest 2V DATE OF EXAM: 09/19/2022 COMPARISON: 04/25/2021 INDICATION: The TECHNIQUE: Frontal and lateral views of the chest are obtained. FINDINGS: The heart size is normal. The pulmonary vasculature is normal. Bibasilar infiltrates are present greater at the right base. Correlate for atelectasis or pneumonia.. IMPRESSION: 1. Right middle lobe atelectasis or pneumonia. Some mild subsegmental atelectasis left base may be pr esent. Follow-up can be performed.
[2022-09-19] MEDS: SPIRONOLACTONE 25 MG TAB PO SCH (18:55)
[2022-09-19] MEDS ORDERED: ATORVASTATIN 80 MG TAB PO SCH (21:00)
[2022-09-20 00:28] LABS: HCT 36.3 % (34.0-46.0); HGB 12.3 gm/dL (11.4-16.0); MCH 31.4 pg (25.0-35.0); MCHC 33.9 g/dL (31.0-37.0); MCV 92.5 fL (80.0-100.0); Mean Platelet Volume 8.1; Platelet Count 166 k/uL (150-450); RBC 3.93 m/uL (3.80-5.40); RDW 12.7 % (11.5-15.5); WBC 9.8 k/uL (3.8-10.6)
[2022-09-20] MEDS: HYDROcodone/APAP 10-325MG 1 EACH TAB PO SCH ×3 (06:29→13:02)
[2022-09-20] MEDS: LEVOTHYROXINE 88 MCG TAB PO SCH (06:31)
[2022-09-20 06:59] LABS: African American GFR (CKD) >90 (>60 ml/min/1.73 sqM); Anion Gap 2 mmol/L; Blood Urea Nitrogen 7 mg/dL (7-17); Calcium 8.1 mg/dL (8.4-10.2); Carbon Dioxide 28 mmol/L (22-30); Chloride 106 mmol/L (98-107); Glucose 131 mg/dL (74-99); Non-African American GFR(CKD) >90 (>60 ml/min/1.73 sqM); Potassium 3.9 mmol/L (3.5-5.1); Sodium 136 mmol/L (137-145)
--- NOTE | 2022-09-20 07:38 | P.PN ---
Subjective Progress Note Date: 09/20/22 PROGRESS NOTE The patient is a 52-year-old female with known history of coronary disease, hyperlipidemia, status post CABG in 2014 who presented with an acute non-STEMI and underwent cardiac catheterization was found to have occluded saphenous vein graft to the OM, probably OM2 that appears to be chronic with acute occlusion of a saphenous vein graft to probably OM 1, she underwent angioplasty and stenting of that graft. She's feeling better this morning. She has no anginal pain. Her breathing is stable. She is in sinus mechanism and hemodynamically stable. She denies any dizziness or palpitations. No nausea. September 20: The patient is feeling well this morning, she denies any chest discomfort, dizziness or palpitations. She is ambulating in the room without difficulties. She continues to be in sinus mechanism with no evidence of malignant arrhythmia. Her urine output is stable. Her echocardiogram showed an ejection fraction of 40% with moderate mitral and mild tricuspid regurgitation, she had inferoposterior wall hypokinesis. Medications: Aspirin, Lipitor 80 mg daily, Zestril 2.5 mg twice a day, metoprolol tartrate 25 mg twice a day, Brilinta 90 mg twice a day, Imdur 30 mg daily, Celexa 10 mg daily, Aldactone 25 mg daily PHYSICAL EXAMINATION: Blood pressure 114/80 heart rate 70 LUNGS: Clear to auscultation HEART: Regular rate and rhythm, S1, S2. No S3. systolic ejection murmur ABDOMEN: Soft, nontender, no organomegaly EXTREMETIES: No edema, LAB: Potassium 3.9, BUN 7, creatinine 0.59 IMPRESSION: 1. Status post acute non-STEMI stenting of the SVG to the OM, stable 2. Status post CABG in 2014 with patent MCMILLAN to the LAD and SVG to the RCA 3. History of hypertension 4. History of hyperlipidemia 5. Ischemic cardiomyopathy PLAN: 1. Continue present therapy 2. Increase physical activity 3. Change lisinopril to 5 mg daily, and follow blood pressure 4. If stable after ambulating probable discharge his p.m. and follow-up with Dr. Lopez as outpatient Objective - Vital Signs Vital signs: Vital Signs Temp 98.2 F 09/20/22 04:00 Pulse 77 09/20/22 04:00 Resp 20 09/20/22 04:00 BP 114/79 04/19/23 04:00 Pulse Ox 93 L 09/20/22 04:00 FiO2 Intake & Output 09/19/22 09/20/22 09/20/22 18:59 06:59 18:59 Intake Total 1092.0 Output Total 450 0 Balance 642.0 0 Weight 85.6 kg 83 kg Intake: Intake, IV Titration 692.0 Amount Sodium Chloride 0.9% 1, 692.0 000 ml In Empty Bag 1 bag @ 1 ML/KG/HR 86.5 mls/hr IV .[id number] [facility] Rx#: [id number] Oral 400 Output: Urine 450 0 Other: Voiding Method Bedside Commode Bedside Commode # Voids 1 # Bowel Movements 1 - Labs CBC & Chem 7: 09/19/22 23:31 09/20/22 05:58 Labs: Abnormal Lab Results - Last 24 Hours (Table) 09/19/22 09/20/22 Range/Units 03:23 05:58 Sodium 136 L (137-145) mmol/L Glucose 131 H (74-99) mg/dL Calcium 8.1 L (8.4-10.2) mg/dL HDL Cholesterol 39.60 L (40.00-60.00) mg/dL
[2022-09-20] MEDS ORDERED: POTASSIUM CHLORIDE ER 20 MEQ TAB.ER PO SCH (08:00)
[2022-09-20] MEDS: TICAGRELOR 90 MG TAB PO SCH (08:20)
[2022-09-20] MEDS: ASPIRIN 81 MG PO SCH (08:21)
[2022-09-20] MEDS: SUCRALFATE 1 GM TAB PO SCH (08:21)
[2022-09-20] MEDS: SPIRONOLACTONE 25 MG TAB PO SCH (08:21)
[2022-09-20] MEDS ORDERED: CITALOPRAM HYDROBROMIDE 10 MG TAB PO SCH (09:00)
[2022-09-20] MEDS ORDERED: AMOXIC-POT CLAV 875-125MG 1 EACH TAB PO SCH (09:00)
[2022-09-20] MEDS ORDERED: ISOSORBIDE MONONITRATE ER 30 MG TAB.ER.24H PO SCH (09:00)
[2022-09-20] MEDS ORDERED: NICOTINE 14MG/24HR PATCH TRANSDERM SCH (09:00)
[2022-09-20] MEDS ORDERED: lisinopriL 5 MG TAB PO SCH (09:00)
[2022-09-20 10:39] VITALS: TEMP 97.8
[2022-09-20] MEDS: METOPROLOL TARTRATE 25 MG TAB PO SCH (13:02)
[2022-09-20 13:04] VITALS: BP 135/78; PULSE 75; RESP 20
--- NOTE | 2022-09-21 08:08 | P.DS ---
Providers Date of admission: 09/18/22 21:05 Attending physician: Di Castaneda Consults: 09/18/22 22:25 Consult Physician Routine Consulting Provider: [facility] Consult Reason/Comments: Post Interventional Patient Do you want consulting provider notified?: Already Contacted 09/19/22 03:37 Consult Physician Routine Consulting Provider: Di Castaneda Consult Reason/Comments: Primary/medical management Do you want consulting provider notified?: Yes, Notify in am Primary care physician: [facility] Course: diagnoses: non STEMI, status post PCI to OM ISCHEMIC CARDIOMYOPATHY WITH EJECTION FRACTION OF 40% RIGHT MIDDLE LOBE ATELECTASIS RATHER THAN PNEUMONIA WITH NO FEVER OR LEUKOCYTOSIS Nicotine dependence HISTORY OF CORONARY ARTERY DISEASE STATUS POST cabg IN 2014 Hospital course: This is a pleasant 52 years old female with past medical history of coronary artery disease, gastroesophageal reflux disease, hypothyroidism, cardiomyopathy, cervical cancer, bronchitis. Presents because of chest pain. Patient was found to have been stated, she was evaluated by language pathologist and underwent PCI to OM branch. Postoperatively patient was doing well, she is back to baseline. This morning she denies any symptoms, no chest pain or dyspnea. No coughing. No change in abdominal symptoms, no abdominal pain vomiting or diarrhea. No urinary symptoms like no dysuria or urgency. No fever. Patient was started on dual antiplatelet therapy with aspirin and brillinta , the importance of aggressive therapy and risk of bleeding explained for the patient extensively and she verbalized understanding and acceptance. Postoperatively patient back to baseline and patient was cleared for discharge by [employer], and I will check with the patient and she is agreeable to go home today to auscultation pneumonia versus atelectasis on chest x-ray, patient however with no fever, no leukocytosis and procalcitonin came back negative 0.09, making the suspicion of pneumonia. Unlikely. Patient informed with instructions to repeat chest x-ray with her primary care doctor upon discharge and she is agreeable. Patient does not need antibiotics on discharge as this more than benefits. Patient also on medrol dose pack for bronchitis prior To admission which can be resumed upon discharge. patient mildly tachypnic could be also because of her cardiomyopathy however patient stable and she is on room air Patient is hemodynamically stable Patient was cleared for discharge by language pathologist Problems and management plan were discussed with the patient and he verbalized understanding and acceptance Patient was found stable and can be discharged home in guarded prognosis however he needs follow-up as an outpatient. Patient was instructed to follow up with PCP Dr. Dobbs within one week and patient agrees with the appointments made for him on 09/25 Patient was counseled to quit smoking and she agrees. Patient was instructed to follow up with her language pathologist Dr. Nettles and she agrees with the appointments made for her on 10/04/2022 stiemilio. Physical exam Gen: patient is a AAOx3, no distress CVS: S1-S2, RRR, no murmur Lungs: B/L CTA, no wheezing Abdomen: soft, no distention, no tenderness, positive bowel sounds Extremity: no leg edema or induration Time spent more than 35 minutes Plan - Discharge Summary Discharge Rx Participant: Yes New Discharge Prescriptions: New Spironolactone [Aldactone] 25 mg PO DAILY #30 tab Nicotine 14Mg/24Hr Patch [Habitrol] 1 patch TRANSDERM DAILY #3 patch Metoprolol Tartrate [Lopressor] 25 mg PO BID #60 tab Nitroglycerin Sl Tabs [Nitrostat] 0.4 mg SUBLINGUAL Q5M PRN #20 tab PRN Reason: Chest Pain Ticagrelor [Brilinta] 90 mg PO BID #60 tab Atorvastatin [Lipitor] 80 mg PO HS #30 tab lisinopriL [Zestril] 5 mg PO DAILY #30 tab Continue ALPRAZolam [Xanax] 2 mg PO BID PRN PRN Reason: Anxiety HYDROcodone/APAP 10-325MG [[place] 10-325] 1 tab PO Q6HR Famotidine [Pepcid] 20 mg PO BID Citalopram Hydrobromide [CeleXA] 10 mg PO DAILY Sucralfate [Carafate] 1 gm PO TID Albuterol Inhaler [Ventolin Hfa Inhaler] 2 puff INHALATION RT-Q6H PRN PRN Reason: Shortness Of Breath Butalb/APAP/Caff 50-325-40Mg [Fioricet 50-325-40] 1 tab PO Q8H PRN PRN Reason: Migraine Headache Isosorbide Mononitrate ER [Imdur] 30 mg PO DAILY Levothyroxine Sodium [Synthroid] 175 mcg PO DAILY methylPREDNISolone Dose Pack [Medrol Dose Pack] See Taper PO DIRECTED Aspirin 81 mg PO DAILY #30 tab Discontinued Lovastatin [Mevacor] 40 mg PO W/SUPPER Amoxicillin 875 mg PO BID Metoprolol Tartrate 25 mg PO DAILY Discharge Medication List ALPRAZolam [Xanax] 2 mg PO BID PRN 10/15/13 [History] HYDROcodone/APAP 10-325MG [[place] 10-325] 1 tab PO Q6HR 11/28/19 [History] Albuterol Inhaler [Ventolin Hfa Inhaler] 2 puff INHALATION RT-Q6H PRN 12/15/21 [History] Famotidine [Pepcid] 20 mg PO BID 12/15/21 [History] Sucralfate [Carafate] 1 gm PO TID 12/15/21 [History] Butalb/APAP/Caff 50-325-40Mg [Fioricet 50-325-40] 1 tab PO Q8H PRN 09/18/22 [History] Citalopram Hydrobromide [CeleXA] 10 mg PO DAILY 09/18/22 [History] Isosorbide Mononitrate ER [Imdur] 30 mg PO DAILY 09/18/22 [History] Levothyroxine Sodium [Synthroid] 175 mcg PO DAILY 09/18/22 [History] methylPREDNISolone Dose Pack [Medrol Dose Pack] See Taper PO DIRECTED 09/18/22 [History] Aspirin 81 mg PO DAILY #30 tab 09/20/22 [Rx] Atorvastatin [Lipitor] 80 mg PO HS #30 tab 09/20/22 [Rx] Metoprolol Tartrate [Lopressor] 25 mg PO BID #60 tab 09/20/22 [Rx] Nicotine 14Mg/24Hr Patch [Habitrol] 1 patch TRANSDERM DAILY #3 patch 09/20/22 [Rx] Nitroglycerin Sl Tabs [Nitrostat] 0.4 mg SUBLINGUAL Q5M PRN #20 tab 09/20/22 [Rx] Spironolactone [Aldactone] 25 mg PO DAILY #30 tab 09/20/22 [Rx] Ticagrelor [Brilinta] 90 mg PO BID #60 tab 09/20/22 [Rx] lisinopriL [Zestril] 5 mg PO DAILY #30 tab 09/20/22 [Rx] Follow up Appointment(s)/Referral(s): Eldon Lopez MD [STAFF PHYSICIAN] - 10/04/22 1:30 pm Tremayne Dobbs DO [Primary Care Provider] - 09/25/22 10:00 am Patient Instructions/Handouts: Heart Attack (DC), Heart Healthy Diet (DC) Activity/Diet/Wound Care/Special Instructions: heart healthy diet activity is restricted till you see your doctor we recommend to check your chest x-ray with your doctor in one week Discharge Disposition: HOME SELF-CARE
== END 2022-09-20 16:09 | disposition home or self-care (01) | DRG 174 ==
LOC: 2SICU 21:05
PROVIDERS: ADMIT Hospitalist; ATTEND Hospitalist
PROC: 02C03ZZ Extirpation of Matter from Coronary Artery, One Artery, Percutaneous Approach (ICD-10-PCS; principal; 2022-09-18 20:43)
PROC: 027034Z Dilation of Coronary Artery, One Artery with Drug-eluting Intraluminal Device, Percutaneous Approach (ICD-10-PCS; principal; 2022-09-18 20:43)
PROC: B2111ZZ Fluoroscopy of Multiple Coronary Arteries using Low Osmolar Contrast (ICD-10-PCS; 2022-09-18 20:43)
PROC: 4A023N7 Measurement of Cardiac Sampling and Pressure, Left Heart, Percutaneous Approach (ICD-10-PCS; 2022-09-18 20:43)
PROC: B2131ZZ Fluoroscopy of Multiple Coronary Artery Bypass Grafts using Low Osmolar Contrast (ICD-10-PCS; 2022-09-18 20:43)
PROC: B2181ZZ Fluoroscopy of Left Internal Mammary Bypass Graft using Low Osmolar Contrast (ICD-10-PCS; 2022-09-18 20:43)
DX: I21.4 Non-ST elevation (NSTEMI) myocardial infarction (principal); J96.01 Acute respiratory failure with hypoxia; I25.5 Ischemic cardiomyopathy; J98.11 Atelectasis; F31.9 Bipolar disorder, unspecified; I25.10 Atherosclerotic heart disease of native coronary artery without angina pectoris; I25.810 Atherosclerosis of coronary artery bypass graft(s) without angina pectoris; I11.9 Hypertensive heart disease without heart failure; K21.9 Gastro-esophageal reflux disease without esophagitis; I25.2 Old myocardial infarction; E89.0 Postprocedural hypothyroidism; K58.9 Irritable bowel syndrome, unspecified; M50.30 Other cervical disc degeneration, unspecified cervical region; E78.5 Hyperlipidemia, unspecified; I08.1 Rheumatic disorders of both mitral and tricuspid valves; J40 Bronchitis, not specified as acute or chronic; F41.0 Panic disorder [episodic paroxysmal anxiety]; F17.200 Nicotine dependence, unspecified, uncomplicated; Z71.6 Tobacco abuse counseling; Z79.890 Hormone replacement therapy; Z79.82 Long term (current) use of aspirin; Z79.899 Other long term (current) drug therapy; Z95.1 Presence of aortocoronary bypass graft; Z86.73 Personal history of transient ischemic attack (TIA), and cerebral infarction without residual deficits; Z91.030 Bee allergy status; Z88.8 Allergy status to other drugs, medicaments and biological substances; Z88.5 Allergy status to narcotic agent
CPT/HCPCS: 71046; 80048; 80061; 83880; 84145; 85027; 93306; 93459; 94760

== ENCOUNTER → 2022-09-25 | Outpatient (CLI) | payer OTHER ==
--- NOTE | 2022-09-25 12:00 | XR ---
EXAMINATION TYPE: XR chest 2V DATE OF EXAM: 09/25/2022 COMPARISON: Chest x-ray September 19, 2022 and older studies. HISTORY: Pneumonia. TECHNIQUE: Frontal and lateral views of the chest are obtained. FINDINGS: Overlying sternal wires and mediastinal clips are redemonstrated. There is chronic for inte rval change in the lower lungs without suspicious new focal air space opacity, pleural effusion, or p neumothorax seen. The cardiac silhouette size is stable and mildly enlarged. The osseous structure s are intact. IMPRESSION: Chronic changes and mild cardiomegaly without acute pulmonary process seen currently.
== END | disposition home or self-care (01) ==
LOC: RADXRMAIN 10:58
PROVIDERS: ATTEND Family Medicine
DX: J18.9 Pneumonia, unspecified organism (principal); I51.7 Cardiomegaly
CPT/HCPCS: 71046

== ENCOUNTER → 2022-11-15 | Outpatient (CLI) | payer OTHER ==
--- NOTE | 2022-11-15 15:45 | XR ---
EXAMINATION TYPE: XR thoracic spine complete DATE OF EXAM: 11/15/2022 COMPARISON: 04/25/2021 HISTORY: Thoracic pain, fall TECHNIQUE: 3 view thoracic spine FINDINGS: There are 12 thoracic type vertebral bodies. Pedicles appear intact. Disc heights are prese rved. Vertebral body heights are preserved. There is slight exaggeration of thoracic kyphosis. Spondy losis is noted. IMPRESSION: 1. No suspicious acute or subacute osseous abnormality. 2. Mild degenerative changes
--- NOTE | 2022-11-15 16:30 | XR ---
EXAMINATION TYPE: XR cervical spine comp DATE OF EXAM: 11/15/2022 COMPARISON: 06/30/2015 HISTORY: Chronic pain TECHNIQUE: 5 view cervical spine FINDINGS: Vertebral body alignment is normal. Posterior spinal lamellar line is intact. Prevertebral space appears normal. Minimal inferior anterior spurring is present at T3 and C5. Foraminal narrowing is present C5-6 on the right. Left foraminal stenosis is present C3-4 C4-5. Vertebral body heights are preserved IMPRESSION: 1. Foraminal narrowing left C3-4 C4-5 and right C5-6.
--- NOTE | 2022-11-15 16:32 | XR ---
EXAMINATION TYPE: XR lumbosacral spine min 4V DATE OF EXAM: 11/15/2022 COMPARISON: None HISTORY: Chronic pain TECHNIQUE: 5 view lumbar spine frontal view does not include the L1 level. FINDINGS: Vertebral body heights are preserved. Disc heights appear preserved. Facets are normal. Vas cular calcifications within the aorta. Vertebral body alignment is preserved. IMPRESSION: 1. Utilized lumbar spine appears unremarkable. Follow-up MRI can be performed as clinically indicate d
== END | disposition home or self-care (01) ==
LOC: LABWHC1 14:12
PROVIDERS: ATTEND Family Medicine
DX: M47.814 Spondylosis without myelopathy or radiculopathy, thoracic region (principal); M48.02 Spinal stenosis, cervical region; I70.0 Atherosclerosis of aorta
CPT/HCPCS: 72050; 72072; 72110

== ENCOUNTER → 2023-03-23 | Outpatient (CLI) | payer OTHER ==
--- NOTE | 2023-03-23 17:17 | US ---
EXAMINATION TYPE: US arterial UE single level DATE OF EXAM: 03/23/2023 2:49 PM CLINICAL INDICATION: Female, 52 years old with history of I73.9 PVD; History of: Smoker: Current Hypertension: No Diabetic: No Hyperlipidemia: Yes TIA/CVA: Yes Previous Vascular Surgery: Yes [place]: Yes Doppler Waveforms: Right: Brachial: Multiphasic Radial: Multiphasic Ulnar: Multiphasic Left: Brachial: Multiphasic Radial: Multiphasic Ulnar: Multiphasic Wrist Brachial Indices: Right: 1.13 Left: 1.16 IMPRESSION: No evidence for significant stenosis.
== END | disposition home or self-care (01) ==
LOC: RADUSWWP 13:47
PROVIDERS: ATTEND Family Medicine
DX: I73.9 Peripheral vascular disease, unspecified (principal)
CPT/HCPCS: 93922

== ENCOUNTER → 2023-05-23 | Outpatient (CLI) | payer OTHER ==
--- NOTE | 2023-05-23 08:30 | US ---
EXAMINATION TYPE: US abdomen limited DATE OF EXAM: 05/23/2023 COMPARISON: NONE CLINICAL INDICATION: Female, 52 years old with history of R10.12 LEFT UPPER QUADRANT PAIN; LUQ pain, prior ventral hernia surgery 2021, pain and bulge when bending or moving Assess for hernia at location of: LUQ, spigelian area no discrete abnormality noted at area of pain, or prior repair site IMPRESSION: No distinct abnormality appreciated Real-time scanning was performed by the entry level financial analyst utilizing Valsalva and additional dynamic maneuve rs to assess for hernia. Images of the contralateral side were also acquired for direct comparison.
== END | disposition home or self-care (01) ==
LOC: RADUSWWP 07:51
PROVIDERS: ATTEND Family Medicine
DX: R10.12 Left upper quadrant pain (principal); Z98.890 Other specified postprocedural states
CPT/HCPCS: 76705

== ENCOUNTER → 2023-07-05 | Outpatient (CLI) | payer OTHER ==
--- NOTE | 2023-07-06 08:37 | MM ---
Reason for Exam: Screening (asymptomatic). Last mammogram was performed 4 year(s) and 4 month(s) ago. Patient History: Menarche at age 12. First Full-Term at age 21. Hysterectomy at age 37. Postmenopausal. Other cancer. Estrogen, starting at age 37 for 7 years. 2003, Benign Excisional Biopsy on the left side. 2002, Benign Excisional Biopsy on the left side. 04/07/2011, Benign Core Biopsy on the left side. 04/07/2011, Benign Core Biopsy on the left side. Maternal aunt had breast cancer, age 40. Maternal aunt had breast cancer. Risk Values: Milady 5 year model risk: 1.4%. NCI Lifetime model risk: 11.5%. Prior Study Comparison: 05/10/2015 Bilateral Diagnostic Mammogram, [facility]. 08/31/2016 Bilateral Screening Mammogram, [facility]. 03/27/2019 Bilateral Screening Mammogram, [facility]. Tissue Density: There are scattered fibroglandular densities. Findings: Analyzed By CAD. There is no suspicious group of microcalcifications or new suspicious mass in either breast. Overall Assessment: Benign, BI-RAD 2 Management: Screening Mammogram of both breasts in 1 year. . Patient should continue monthly self-breast exams. A clinical breast exam by your physician is recommended on an annual basis. This exam should not preclude additional follow-up of suspicious palpable abnormalities. Note on Milady scores and lifetime risk: 1. A Milady score greater than 3% is considered moderate risk. If this is the case, consider specialist referral to assess eligibility for a risk reducing agent. 2. If overall lifetime risk for the development of breast cancer is 20% or higher, the patient may qualify for future screening with alternating mammogram and breast MRI. Electronically signed and approved by: Xavier Fischer M.D. Radiologis
== END | disposition home or self-care (01) ==
LOC: RADMAMWWP 12:19
PROVIDERS: ATTEND Family Medicine
DX: Z12.31 Encounter for screening mammogram for malignant neoplasm of breast (principal); Z80.3 Family history of malignant neoplasm of breast; Z78.0 Asymptomatic menopausal state
CPT/HCPCS: 77067

== ENCOUNTER → 2023-08-03 | Outpatient (CLI) | payer OTHER ==
--- NOTE | 2023-08-03 17:57 | XR ---
EXAMINATION TYPE: XR Hip Bilateral Complete DATE OF EXAM: 08/03/2023 COMPARISON: None HISTORY: Degenerative joint changes TECHNIQUE: Two-view bilateral hips FINDINGS: Femoral heads articulate with the acetabulum. Joint spaces are preserved. No acute fracture or dislocation is evident. Remaining osseous structures appear normal. IMPRESSION: 1. No acute osseous abnormalities bilateral hips.
== END | disposition home or self-care (01) ==
LOC: RADXRMAIN 12:39
PROVIDERS: ATTEND Family Medicine
DX: M16.0 Bilateral primary osteoarthritis of hip (principal)
CPT/HCPCS: 73521

== ENCOUNTER 2023-10-15 11:06 | Observation (INO) | payer OTHER ==
--- NOTE | 2023-10-15 12:30 | ED ---
Weakness HPI - General Chief complaint: Weakness Stated complaint: Abn Labs Time Seen by Provider: 10/15/23 12:00 Source: patient, RN notes reviewed Mode of arrival: ambulatory Limitations: no limitations - History of Present Illness Initial comments: 53-year-old female with past medical history of atrial fibrillation and CAD presenting with generalized weakness since this morning with shortness of breath and abdominal cramping. She reports for 3 days last week she had bright red blood in her stool, and yesterday reports stool was black and tarry. She saw her PCP Dr. Lares today who sent her to the ER immediately for concern for GI bleed. She is on Plavix and aspirin daily. She also reports she takes iron supplements for cysts on kidneys. Denies chest pain, palpitations, fever, or URI symptoms, dysuria, urinary frequency, diarrhea. She reports she has chronic low blood pressure and takes medication for this. - Related Data Home Medications Medication Instructions Recorded Confirmed ALPRAZolam [Xanax] 2 mg PO BID PRN 10/15/13 09/18/22 HYDROcodone/APAP 10-325MG [[place] 1 tab PO Q6HR 11/28/19 09/18/22 10-325] Albuterol Inhaler [Ventolin Hfa 2 puff INHALATION RT-Q6H PRN 12/15/21 09/18/22 Inhaler] Famotidine [Pepcid] 20 mg PO BID 12/15/21 09/18/22 Sucralfate [Carafate] 1 gm PO TID 12/15/21 09/18/22 Butalb/APAP/Caff 50-325-40Mg 1 tab PO Q8H PRN 09/18/22 09/18/22 [Fioricet 50-325-40] Citalopram Hydrobromide [CeleXA] 10 mg PO DAILY 09/18/22 09/18/22 Isosorbide Mononitrate ER [Imdur] 30 mg PO DAILY 09/18/22 09/18/22 Levothyroxine Sodium [Synthroid] 175 mcg PO DAILY 09/18/22 09/18/22 methylPREDNISolone Dose Pack See Taper PO DIRECTED 09/18/22 09/18/22 [Medrol Dose Pack] Previous Rx's Medication Instructions Recorded Aspirin 81 mg PO DAILY #30 tab 09/20/22 Atorvastatin [Lipitor] 80 mg PO HS #30 tab 09/20/22 Metoprolol Tartrate [Lopressor] 25 mg PO BID #60 tab 09/20/22 Nicotine 14Mg/24Hr Patch [Habitrol] 1 patch TRANSDERM DAILY #3 patch 09/20/22 Nitroglycerin Sl Tabs [Nitrostat] 0.4 mg SUBLINGUAL Q5M PRN #20 tab 09/20/22 Spironolactone [Aldactone] 25 mg PO DAILY #30 tab 09/20/22 Ticagrelor [Brilinta] 90 mg PO BID #60 tab 09/20/22 lisinopriL [Zestril] 5 mg PO DAILY #30 tab 09/20/22 Allergies Allergy/AdvReac Type Severity Reaction Status Date / Time venom-honey bee Allergy Severe Anaphylaxis Verified 09/18/22 22:31 [bee venom (honey bee)] codeine phosphate Allergy Chest Pain Verified 09/18/22 22:31 [From Tylenol-Codeine #3] tramadol HCl [From Ultram] AdvReac Hallucinati Verified 09/18/22 22:31 ons BIPOLAR MEDICATION AdvReac Unknown States it Uncoded 12/19/21 08:48 "knocks her out" Review of Systems ROS Statement: Those systems with pertinent positive or pertinent negative responses have been documented in the HPI. ROS Other: All systems not noted in ROS Statement are negative. Past Medical History Past Medical History: Atrial Fibrillation, Coronary Artery Disease (CAD), Cancer, Chest Pain / Angina, CVA/TIA, GERD/Reflux, Myocardial Infarction (DC), Skin Disorder, Thyroid Disorder Additional Past Medical History / Comment(s): LEAKY heart valve, IBS, hx CERVICAL CA, cardiomyopathy, BRONCHITIS, cervical DDD, facet joint syndrome, hx goiter. HX SEPSIS, TIA 11/2016. CYST LT KIDNEY. hx stomach ulcer. Last Myocardial Infarction Date:: 2007 History of Any Multi-Drug Resistant Organisms: None Reported Past Surgical History: Breast Surgery, Cardiac Ablation, Cholecystectomy, Coronary Bypass/CABG, Heart Catheterization, Hysterectomy, Orthopedic Surgery, Pacemaker, Tubal Ligation Additional Past Surgical History / Comment(s): THYROIDECTOMY, surgery for CERVICAL CANCER, LT BREAST BX X4, PAIN CLINIC PROCEDURES, LEFT ELBOW surgery, QUADRUPLE BYPASS 2016, MARSHALL eye surgery age 5. Past Anesthesia/Blood Transfusion Reactions: Motion Sickness, Postoperative N ausea & Vomiting (PONV) Additional Past Anesthesia/Blood Transfusion Reaction / Comment(s): SOME DIFFICULTY WAKING UP. DAUGHTER HAS DIFFICULTY WAKING UP . Past Psychological History: Anxiety, Bipolar, Depression, Panic Disorder Smoking Status: Current every day smoker Past Alcohol Use History: Rare Past Drug Use History: Marijuana - Past Family History Father Family Medical History: Cancer Mother Additional Family Medical History / Comment(s): QUESTIONABLE "HEART PROBLEM AND TRIPLE BYPASS" General Exam Limitations: no limitations General appearance: alert, in no apparent distress Head exam: Present: atraumatic, normocephalic, normal inspection ENT exam: Present: normal exam, mucous membranes moist Neck exam: Present: normal inspection. Absent: tenderness, meningismus, lymphadenopathy Respiratory exam: Present: normal lung sounds bilaterally. Absent: respiratory distress, wheezes, rales, rhonchi, stridor Cardiovascular Exam: Present: regular rate, normal rhythm, normal heart sounds. Absent: systolic murmur, diastolic murmur, rubs, gallop, clicks GI/Abdominal exam: Present: soft, normal bowel sounds. Absent: distended, tenderness, guarding, rebound, rigid Neurological exam: Present: alert, oriented X3, CN II-XII intact Psychiatric exam: Present: normal affect, normal mood Skin exam: Present: warm, dry, intact, normal color. Absent: rash Course Vital Signs 10/15/23 10/15/23 11:41 14:34 Temperature 97.5 F L 98 F Pulse Rate 75 39 L Respiratory 16 18 Rate Blood Pressure 114/81 111/72 O2 Sat by Pulse 98 91 L Oximetry EKG Findings - EKG Results: EKG: interpreted by ERMD (EKG reveals paced sinus rhythm with T wave inversions in V1 through V3.) Medical Decision Making - Medical Decision Making Was pt. sent in by a medical professional or institution (, PA, SIGNALS INTELLIGENCE ANALYSIS MANAGER, urgent care, hospital, or snf...) When possible be specific @ -[No] Did you speak to anyone other than the patient for history (EMS, parent, family, police, friend...)? What history was obtained from this source @ -[No] Did you review nursing and triage notes (agree or disagree)? Why? @ -[I reviewed and agree with nursing and triage notes] Were old charts reviewed (outside hosp., previous admission, EMS record, old EKG, old radiological studies, urgent care reports/EKG's, snf records)? Report findings @ -Old EKG reviewed prior to pacemaker Differential Diagnosis (chest pain, altered mental status, abdominal pain women, abdominal pain men, vaginal bleeding, weakness, fever, dyspnea, syncope, headache, dizziness, GI bleed, back pain, seizure, CVA, palpatations, mental health, musculoskeletal)? @ -Differential Weakness: Hypoglycemia, ACS, GI bleed shock, sepsis, hyponatremia, anemia, infection, DC, ETOH, adverse medicine reaction, overdose, stroke, this is not meant to be an all-inclusive list. EKG interpreted by me (3pts min.). @ -[As above] X-rays interpreted by me (1pt min.). @ -Chest x-ray revealed increased opacity on right lower lobe, pleural effusion with underlying atelectasis or infiltrate CT interpreted by me (1pt min.). @ -CT of abdomen/pelvis pending at time of admission U/S interpreted by me (1pt. min.). @ -[None done] What testing was considered but not performed or refused? (CT, X-rays, U/S, labs)? Why? @ -[None] What meds were considered but not given or refused? Why? @ -[None] Did you discuss the management of the patient with other professionals (professionals i.e. , PA, SIGNALS INTELLIGENCE ANALYSIS MANAGER, lab, RT, psych nurse, social work lecturer, tire fixer, teacher, loan service officer, hospice case manager)? Give summary @ -Case discussed with Dr. Roberts from [facility] who accepted ad mission with consult to cardiology and GI Was smoking cessation discussed for >3mins.? @ -[No] Was critical care preformed (if so, how long)? @ -[No] Were there social determinants of health that impacted care today? How? (Homelessness, low income, unemployed, alcoholism, drug addiction, transportat ion, low edu. Level, literacy, decrease access to med. care, nursing home, rehab)? @ -[No] Was there de-escalation of care discussed even if they declined (Discuss DNR or withdrawal of care, Hospice)? DNR status @ -[No] What co-morbidities impacted this encounter? (DM, HTN, Smoking, COPD, CAD, Cancer, CVA, ARF, Chemo, Hep., AIDS, mental health diagnosis, sleep apnea, morbid obesity)? @ -CAD Was patient admitted / discharged? Hospital course, mention meds given and route, prescriptions, significant lab abnormalities, going to OR and other pertinent info. @ -Patient was admitted. Patient was seen and evaluated for shortness of breath x 1 day. Patient admits to bright red stools for the past few days as well. She was sent by PCP for concern of GI bleed. EKG revealed paced rhythm with T wave inversions V1 through V3. Troponin was elevated up 0.043. Patient denies any chest pain during visit. Chest x-ray revealed increased opacity of right lower lobe, likely pleural effusion. Heart rate was palpated manually and remained in the 70s during visit. CT of abdomen/pelvis pending at time of ad mission to rule out GI bleed. Hemoglobin is 13.1. Case discussed with Dr. Roberts from [facility] who accepts admission at this time with cardiology and GI consultation. Undiagnosed new problem with uncertain prognosis? @ -[No] Drug Therapy requiring intensive monitoring for toxicity (Heparin, Nitro, Insulin, Cardizem)? @ -[No] Were any procedures done? @ -[No] Diagnosis/symptom? @ -Shortness of breath, hematochezia, right lower lobe effusion Acute, or Chronic, or Acute on Chronic? @ -Acute Uncomplicated (without systemic symptoms) or Complicated (systemic symptoms)? @ -Complicated Side effects of treatment? @ -[No] Exacerbation, Progression, or Severe Exacerbation? @ -[No] Poses a threat to life or bodily function? How? (Chest pain, USA, DC, pneumonia, PE, COPD, DKA, ARF, appy, cholecystitis, CVA, Diverticulitis, Homicidal, Suicidal, threat to staff... and all critical care pts) @ -Yes - Lab Data Result diagrams: 10/15/23 12:52 10/15/23 12:52 Lab Results 10/15/23 10/15/23 10/15/23 Range/Units 12:52 12:52 12:52 WBC 10.1 (3.8-10.6) k/uL RBC 4.33 (3.80-5.40) m/uL Hgb 13.1 (11.4-16.0) gm/dL Hct 42.1 (34.0-46.0) % MCV 97.3 (80.0-100.0) fL MCH 30.3 (25.0-35.0) pg MCHC 31.1 (31.0-37.0) g/dL RDW 13.5 (11.5-15.5) % Plt Count 241 (150-450) k/uL MPV 8.6 Neutrophils % 52 % Lymphocytes % 36 % Monocytes % 7 % Eosinophils % 1 % Basophils % 1 % Neutrophils # 5.3 (1.3-7.7) k/uL Lymphocytes # 3.6 (1.0-4.8) k/uL Monocytes # 0.7 (0-1.0) k/uL Eosinophils # 0.1 (0-0.7) k/uL Basophils # 0.1 (0-0.2) k/uL PT (10.0-12.5) sec INR (<1.2) APTT (22.0-30.0) sec Sodium 136 L (137-145) mmol/L Potassium 4.4 (3.5-5.1) mmol/L Chloride 108 H (98-107) mmol/L Carbon Dioxide 22 (22-30) mmol/L Anion Gap 6 mmol/L BUN 15 (7-17) mg/dL Creatinine 0.72 (0.52-1.04) mg/dL Est GFR (CKD-EPI)AfAm >90 (>60 ml/min/1.73 sqM) Est GFR (CKD-EPI)NonAf >90 (>60 ml/min/1.73 sqM) Glucose 104 H (74-99) mg/dL Plasma Lactic Acid [place] 1.3 (0.7-2.0) mmol/L Calcium 8.9 (8.4-10.2) mg/dL Total Bilirubin 0.6 (0.2-1.3) mg/dL AST 106 H (14-36) U/L ALT 105 H (4-34) U/L Alkaline Phosphatase 72 (38-126) U/L Troponin I (0.000-0.034) ng/mL Total Protein 5.8 L (6.3-8.2) g/dL Albumin 3.2 L (3.5-5.0) g/dL Lipase 52 (23-300) U/L Urine Color Urine Appearance (Clear) Urine pH (5.0-8.0) Ur Specific [place] (1.001-1.035) Urine Protein (Negative) Urine Glucose (UA) (Negative) Urine Ketones (Negative) Urine Blood (Negative) Urine Nitrite (Negative) Urine Bilirubin (Negative) Urine Urobilinogen (<2.0) mg/dL Ur Leukocyte Esterase (Negative) 10/15/23 10/15/23 10/15/23 Range/Units 12:52 12:52 13:14 WBC (3.8-10.6) k/uL RBC (3.80-5.40) m/uL Hgb (11.4-16.0) gm/dL Hct (34.0-46.0) % MCV (80.0-100.0) fL MCH (25.0-35.0) pg MCHC (31.0-37.0) g/dL RDW (11.5-15.5) % Plt Count (150-450) k/uL MPV Neutrophils % % Lymphocytes % % Monocytes % % Eosinophils % % Basophils % % Neutrophils # (1.3-7.7) k/uL Lymphocytes # (1.0-4.8) k/uL Monocytes # (0-1.0) k/uL Eosinophils # (0-0.7) k/uL Basophils # (0-0.2) k/uL PT 14.0 H (10.0-12.5) sec INR 1.3 H (<1.2) APTT 24.6 (22.0-30.0) sec Sodium (137-145) mmol/L Potassium (3.5-5.1) mmol/L Chloride (98-107) mmol/L Carbon Dioxide (22-30) mmol/L Anion Gap mmol/L BUN (7-17) mg/dL Creatinine (0.52-1.04) mg/dL Est GFR (CKD-EPI)AfAm (>60 ml/min/1.73 sqM) Est GFR (CKD-EPI)NonAf (>60 ml/min/1.73 sqM) Glucose (74-99) mg/dL Plasma Lactic Acid [place] (0.7-2.0) mmol/L Calcium (8.4-10.2) mg/dL Total Bilirubin (0.2-1.3) mg/dL AST (14-36) U/L ALT (4-34) U/L Alkaline Phosphatase (38-126) U/L Troponin I 0.043 H* (0.000-0.034) ng/mL Total Protein (6.3-8.2) g/dL Albumin (3.5-5.0) g/dL Lipase (23-300) U/L Urine Color Yellow Urine Appearance Clear (Clear) Urine pH 5.5 (5.0-8.0) Ur Specific [place] 1.016 (1.001-1.035) Urine Protein Trace H (Negative) Urine Glucose (UA) Negative (Negative) Urine Ketones Negative (Negative) Urine Blood Negative (Negative) Urine Nitrite Negative (Negative) Urine Bilirubin Negative (Negative) Urine Urobilinogen <2.0 (<2.0) mg/dL Ur Leukocyte Esterase Negative (Negative) 10/15/23 Range/Units 15:02 WBC (3.8-10.6) k/uL RBC (3.80-5.40) m/uL Hgb (11.4-16.0) gm/dL Hct (34.0-46.0) % MCV (80.0-100.0) fL MCH (25.0-35.0) pg MCHC (31.0-37.0) g/dL RDW (11.5-15.5) % Plt Count (150-450) k/uL MPV Neutrophils % % Lymphocytes % % Monocytes % % Eosinophils % % Basophils % % Neutrophils # (1.3-7.7) k/uL Lymphocytes # (1.0-4.8) k/uL Monocytes # (0-1.0) k/uL Eosinophils # (0-0.7) k/uL Basophils # (0-0.2) k/uL PT (10.0-12.5) sec INR (<1.2) APTT (22.0-30.0) sec Sodium (137-145) mmol/L Potassium (3.5-5.1) mmol/L Chloride (98-107) mmol/L Carbon Dioxide (22-30) mmol/L Anion Gap mmol/L BUN (7-17) mg/dL Creatinine (0.52-1.04) mg/dL Est GFR (CKD-EPI)AfAm (>60 ml/min/1.73 sqM) Est GFR (CKD-EPI)NonAf (>60 ml/min/1.73 sqM) Glucose (74-99) mg/dL Plasma Lactic Acid [place] (0.7-2.0) mmol/L Calcium (8.4-10.2) mg/dL Total Bilirubin (0.2-1.3) mg/dL AST (14-36) U/L ALT (4-34) U/L Alkaline Phosphatase (38-126) U/L Troponin I 0.040 H* (0.000-0.034) ng/mL Total Protein (6.3-8.2) g/dL Albumin (3.5-5.0) g/dL Lipase (23-300) U/L Urine Color Urine Appearance (Clear) Urine pH (5.0-8.0) Ur Specific [place] (1.001-1.035) Urine Protein (Negative) Urine Glucose (UA) (Negative) Urine Ketones (Negative) Urine Blood (Negative) Urine Nitrite (Negative) Urine Bilirubin (Negative) Urine Urobilinogen (<2.0) mg/dL Ur Leukocyte Esterase (Negative) Disposition Clinical Impression: Shortness of breath, Hematochezia Disposition: ADMITTED IP TO THIS [facility] Condition: Stable Referrals: Tremayne Dobbs DO [Primary Care Provider] - 1-2 days Time of Disposition: 15:44
[2023-10-15 13:02] LABS: Basophils # (A) 0.1 k/uL (0-0.2); Basophils % (A) 1 %; Eosinophils # (A) 0.1 k/uL (0-0.7); Eosinophils % (A) 1 %; HCT 42.1 % (34.0-46.0); HGB 13.1 gm/dL (11.4-16.0); Lymphocytes # (A) 3.6 k/uL (1.0-4.8); Lymphocytes % (A) 36 %; MCH 30.3 pg (25.0-35.0); MCHC 31.1 g/dL (31.0-37.0); MCV 97.3 fL (80.0-100.0); Mean Platelet Volume 8.6; Monocytes # (A) 0.7 k/uL (0-1.0); Monocytes % (A) 7 %; Neutrophils # (A) 5.3 k/uL (1.3-7.7); Neutrophils % (A) 52 %; Platelet Count 241 k/uL (150-450); RBC 4.33 m/uL (3.80-5.40); RDW 13.5 % (11.5-15.5); WBC 10.1 k/uL (3.8-10.6)
[2023-10-15 13:09] LABS: INR 1.3 (<1.2); Partial Thromboplastin Time 24.6 sec (22.0-30.0)
[2023-10-15 13:32] LABS: Appearance,Urine Clear (Clear); Bilirubin,Urine Negative (Negative); Blood,Urine Negative (Negative); Color,Urine Yellow; Glucose,Urine (UA) Negative (Negative); Ketones,Urine Negative (Negative); Leukocyte Esterase,Urine Negative (Negative); Nitrite,Urine Negative (Negative); PH, Urine 5.5 (5.0-8.0); Protein,Urine Trace (Negative); Specific Gravity,Urine 1.016 (1.001-1.035); Urobilinogen,Urine <2.0 mg/dL (<2.0)
[2023-10-15 13:36] LABS: ALT 105 U/L (4-34); AST 106 U/L (14-36); African American GFR (CKD) >90 (>60 ml/min/1.73 sqM); Albumin 3.2 g/dL (3.5-5.0); Alkaline Phosphatase 72 U/L (38-126); Anion Gap 6 mmol/L; Blood Urea Nitrogen 15 mg/dL (7-17); Calcium 8.9 mg/dL (8.4-10.2); Carbon Dioxide 22 mmol/L (22-30); Chloride 108 mmol/L (98-107); Glucose 104 mg/dL (74-99); Lipase 52 U/L (23-300); Non-African American GFR(CKD) >90 (>60 ml/min/1.73 sqM); Potassium 4.4 mmol/L (3.5-5.1); Sodium 136 mmol/L (137-145); Total Bilirubin 0.6 mg/dL (0.2-1.3); Total Protein 5.8 g/dL (6.3-8.2)
--- NOTE | 2023-10-15 13:55 | XR ---
EXAMINATION TYPE: XR chest 2V DATE OF EXAM: 10/15/2023 COMPARISON: 09/25/2022 HISTORY: Shortness of breath TECHNIQUE: Frontal and lateral views of the chest are obtained. FINDINGS: Scattered senescent parenchymal changes noted. Hyperinflation compatible with COPD. Increased opacity right lower lobe likely reflects pleural effusion with underlying atelectasis or in filtrate difficult to exclude. Correlate clinically. Heart size is stable. IACD device is in place. Changes of median sternotomy and CABG. Mediastinal structures are stable and grossly unremarkable. No evidence for hilar prominence. Degenerative changes dorsal spine. IMPRESSION: 1. Increased opacity right lower lobe likely reflects pleural effusion with underlying atelectasis or infiltrate difficult to exclude. Correlate clinically.
[2023-10-15] MEDS ORDERED: NALOXONE 0.4 MG/ML 1 ML VIAL IV PRN ×2 (15:31→16:22)
--- NOTE | 2023-10-15 15:55 | CT ---
EXAMINATION TYPE: CT angio abdomen pelvis DATE OF EXAM: 10/15/2023 COMPARISON: 07/30/2019 HISTORY: abdominal pain/hematochezia CT DLP: 2400.9 mGycm CONTRAST: CTA abdominal aorta with 3-D reconstruction is performed without Oral Contrast and without and with I V Contrast, patient injected with 100ml mL of Isovue 370. Contrast CTA of the abdominal aorta was performed from the lung apex through the base of the pelvis. 3-D reconstruction imaging obtained at a separate workstation. CONTRAST CT ABDOMEN AND PELVIS Lung bases: Right-sided pleural effusion with a maximal AP dimension of 4.5 cm. Right basilar atelect asis. The left lung is clear. There is evidence of cardiomegaly. ABDOMINAL AORTA: Moderate scattered calcific atheromatous change seen. No evidence for abdominal aort ic aneurysm. No dissection. Iliac vessels are symmetric and patent. LIVER/GB- No significant abnormality is seen. PANCREAS- No significant abnormality is seen. SPLEEN- No significant abnormality is seen. ADRENALS- No significant abnormality is seen. KIDNEYS/BLADDER- No significant abnormality is seen. BOWEL- No Significant abnormality GENITAL ORGANS: Hysterectomy changes suggested. Small amount of free fluid within the pelvis. LYMPH NODES- No greater than 1cm abdominal or pelvic lymph nodes are appreciated. OSSEOUS STRUCTURES- No significant abnormality is seen. OTHER- No significant abnormality is seen. IMPRESSION- 1. Scattered atheromatous change of the abdominal aorta and iliac vessels without high-grade stenosis . Branch vessels appear to be patent including the celiac and SMA.
[2023-10-15] MEDS ORDERED: MORPHINE SULFATE 4 MG/ML SYRINGE IV PRN (16:22)
[2023-10-15] MEDS ORDERED: ONDANSETRON 4 MG/2 ML VIAL IVP PRN (16:22)
[2023-10-16 03:56] LABS: HCT 40.4 % (34.0-46.0); HGB 12.5 gm/dL (11.4-16.0); Hypochromasia Slight; MCH 30.9 pg (25.0-35.0); MCHC 30.9 g/dL (31.0-37.0); MCV 100.2 fL (80.0-100.0); Macrocytosis Slight; Mean Platelet Volume 8.6; Platelet Count 227 k/uL (150-450); RBC 4.04 m/uL (3.80-5.40); RDW 13.6 % (11.5-15.5); WBC 8.6 k/uL (3.8-10.6)
[2023-10-16 04:07] LABS: ALT 84 U/L (4-34); AST 60 U/L (14-36); African American GFR (CKD) >90 (>60 ml/min/1.73 sqM); Albumin 3.1 g/dL (3.5-5.0); Alkaline Phosphatase 73 U/L (38-126); Anion Gap 4 mmol/L; Blood Urea Nitrogen 17 mg/dL (7-17); Calcium 8.6 mg/dL (8.4-10.2); Carbon Dioxide 24 mmol/L (22-30); Chloride 107 mmol/L (98-107); Glucose 96 mg/dL (74-99); Magnesium 1.7 mg/dL (1.6-2.3); Non-African American GFR(CKD) 88 (>60 ml/min/1.73 sqM); Potassium 4.1 mmol/L (3.5-5.1); Sodium 135 mmol/L (137-145); Total Bilirubin 0.4 mg/dL (0.2-1.3); Total Protein 5.4 g/dL (6.3-8.2)
[2023-10-16 07:12] LABS: Eosinophils # (M) 0.09 k/uL (0-0.7); Monocytes # (M) 0.52 k/uL (0-1.0); Neutrophils % (M) 50 %; Nucleated Red Blood Cells 0 /100 WBC (0-0); Total Cells Counted 100
[2023-10-16 07:15] LABS: Anisocytosis (M) Present; Polychromasia Present
--- NOTE | 2023-10-16 10:32 | P.HPIM ---
History of Present Illness This is a pleasant 53 years old female with past medical history of multiple medical problems as below. Yesterday she went to see her regional rehabilitation director Dr. Romano because she was not feeling well she was feeling off. Patient states she has been complaining from shortness of breath on and off for the last month, she was feeling shortness of breath for the last few 4 days, with no chest pain with little cough At her regional rehabilitation director office her blood pressure was low with systolic was 86 as she explains She is complaining also from mild abdominal pain for the last 4 days in the right upper quadrant about 3/10, nonradiating nonspecific. Also patient noticed some blood per rectum about 4 days ago. No urinary complaint, no neurological complaints She denies smoking alcohol or illicit drugs. She is hemodynamically stable and afebrile, currently blood pressure 107/70 Labs reviewed, she has unremarkable CBC, INR, BMP and urine analysis Liver enzymes slightly up but improving troponin is mildly elevated 0.04, 0.04, 0.039 cta of the abdomen and pelvis: No high-grade stenosis Chest x-ray showing possible right pleural effusion and atelectasis, cannot exclude pneumonia Patient was admitted with cardiology consult Review of Systems Review of systems CONSTITUTIONAL: No fever, no malaise, no fatigue. HEENT: No recent visual problems or hearing problems. Denied any sore throat. CARDIOVASCULAR: No orthopnea, PND, no palpitations, no syncope. PULMONARY: No shortness of breath, no cough, no hemoptysis. GASTROINTESTINAL: No diarrhea, no nausea, no vomiting, no abdominal pain. Normoactive bowel sounds. NEUROLOGICAL: No headaches, no weakness, no numbness. HEMATOLOGICAL: Denies any bleeding or petechiae. GENITOURINARY: Denies any burning micturition, frequency, or urgency. MUSCULOSKELETAL/RHEUMATOLOGICAL: Denies any joint pain, swelling, or any muscle pain. ENDOCRINE: Denies any polyuria or polydipsia. Past Medical History Past Medical History: Atrial Fibrillation, Coronary Artery Disease (CAD), Cancer, Chest Pain / Angina, CVA/TIA, GERD/Reflux, Myocardial Infarction (AR), Skin Disorder, Thyroid Disorder Additional Past Medical History / Comment(s): LEAKY heart valve, IBS, hx CERVICAL CA, cardiomyopathy, BRONCHITIS, cervical DDD, facet joint syndrome, hx goiter. HX SEPSIS, TIA 11/2016. CYST LT KIDNEY. hx stomach ulcer. Last Myocardial Infarction Date:: 2007 History of Any Multi-Drug Resistant Organisms: None Reported Past Surgical History: Breast Surgery, Cardiac Ablation, Cholecystectomy, Coronary Bypass/CABG, Heart Catheterization, Hysterectomy, Orthopedic Surgery, Pacemaker, Tubal Ligation Additional Past Surgical History / Comment(s): THYROIDECTOMY, surgery for CERVICAL CANCER, LT BREAST BX X4, PAIN CLINIC PROCEDURES, LEFT ELBOW surgery, QUADRUPLE BYPASS 2016, MARSHALL eye surgery age 5. Past Anesthesia/Blood Transfusion Reactions: Motion Sickness, Postoperative Nausea & Vomiting (PONV) Additional Past Anesthesia/Blood Transfusion Reaction / Comment(s): SOME DIFFICULTY WAKING UP. DAUGHTER HAS DIFFICULTY WAKING UP . Type of Cardiac Device: AICD Device Placement Date:: 09/2023 Past Psychological History: Anxiety, Bipolar, Depression, Panic Disorder Smoking Status: Current every day smoker Past Alcohol Use History: Rare Past Drug Use History: Marijuana - Past Family History Father Family Medical History: Cancer Mother Additional Family Medical History / Comment(s): QUESTIONABLE "HEART PROBLEM AND TRIPLE BYPASS" Medications and Allergies Home Medications Medication Instructions Recorded Confirmed Type ALPRAZolam [Xanax] 1 mg PO BID@0900,1400 10/15/13 10/15/23 History HYDROcodone/APAP 10-325MG [[place] 1 tab PO Q6HR PRN 11/28/19 10/15/23 History 10-325] Famotidine [Pepcid] 20 mg PO DAILY@1100 12/15/21 10/15/23 History Butalb/APAP/Caff 50-325-40Mg 1 tab PO Q8H PRN 09/18/22 10/15/23 History [Fioricet 50-325-40] Levothyroxine Sodium [Synthroid] 175 mcg PO DAILY 09/18/22 10/15/23 History ALPRAZolam [Xanax] 2 mg PO HS 10/15/23 10/15/23 History Clopidogrel [Plavix] 75 mg PO DAILY 10/15/23 10/15/23 History Linaclotide [Linzess] 72 mcg PO DAILY PRN 10/15/23 10/15/23 History Midodrine HCl [ProAmatine] 10 mg PO TID PRN 10/15/23 10/15/23 History Pravastatin Sodium [Pravachol] 20 mg PO HS 10/15/23 10/15/23 History Allergies Allergy/AdvReac Type Severity Reaction Status Date / Time venom-honey bee Allergy Severe Anaphylaxis Verified 10/15/23 17:27 [bee venom (honey bee)] codeine phosphate AdvReac Chest Pain Verified 10/15/23 17:27 [From Tylenol-Codeine #3] tramadol HCl [From Ultram] AdvReac Hallucinati Verified 10/15/23 17:27 ons BIPOLAR MEDICATION AdvReac Unknown States it Uncoded 10/15/23 17:27 "knocks her out" Physical Exam Vitals: Vital Signs Temp Pulse Pulse Resp BP BP Pulse Ox 10/16/23 04:00 98.2 F 71 16 109/70 96 10/16/23 00:00 97.7 F 75 16 102/78 95 10/15/23 20:30 79 18 112/79 10/15/23 18:59 69 18 111/71 92 L 10/15/23 14:34 98 F 70 18 111/72 91 L 10/15/23 11:41 97.5 F L 75 16 114/81 98 Intake and Output 10/15/23 10/16/23 10/16/23 22:59 06:59 14:59 Other: Voiding Method Toilet # Voids 1 Weight 81.647 kg GENERAL: The patient is alert and oriented x3, not in any acute distress. Well developed, well nourished. HEENT: Pupils are round and equally reacting to light. EOMI. No scleral icterus. No conjunctival pallor. Normocephalic, atraumatic. No pharyngeal erythema. No thyromegaly. CARDIOVASCULAR: S1 and S2 present. No murmurs, rubs, or gallops. PULMONARY: Chest is clear to auscultation, no wheezing , no crackles. -ABDOMEN: Soft, mild RUQ tenderness, no rebound tenderness or guarding r, nondistended, normoactive bowel sounds. No palpable organomegaly. MUSCULOSKELETAL: No joint swelling or deformity. EXTREMITIES: No cyanosis, clubbing, or pedal edema. NEUROLOGICAL: Gross neurological examination did not reveal any focal deficits. SKIN: No rashes. no petechiae. Results CBC & Chem 7: 10/16/23 03:13 10/16/23 03:13 Labs: Abnormal Lab Results - Last 24 Hours (Table) 10/15/23 10/15/2324 Range/Units 12:52 12:52 12:52 MCV (80.0-100.0) fL MCHC (31.0-37.0) g/dL PT 14.0 H (10.0-12.5) sec INR 1.3 H (<1.2) Sodium 136 L (137-145) mmol/L Chloride 108 H (98-107) mmol/L Glucose 104 H (74-99) mg/dL AST 106 H (14-36) U/L ALT 105 H (4-34) U/L Troponin I 0.043 H* (0.000-0.034) ng/mL Total Protein 5.8 L (6.3-8.2) g/dL Albumin 3.2 L (3.5-5.0) g/dL Urine Protein (Negative) 10/15/23 10/15/23 10/15/23 Range/Units 13:14 15:02 17:31 MCV (80.0-100.0) fL MCHC (31.0-37.0) g/dL PT (10.0-12.5) sec INR (<1.2) Sodium (137-145) mmol/L Chloride (98-107) mmol/L Glucose (74-99) mg/dL AST (14-36) U/L ALT (4-34) U/L Troponin I 0.040 H* 0.039 H* (0.000-0.034) ng/mL Total Protein (6.3-8.2) g/dL Albumin (3.5-5.0) g/dL Urine Protein Trace H (Negative) 10/16/23 10/16/23 Range/Units 03:13 03:13 MCV 100.2 H (80.0-100.0) fL MCHC 30.9 L (31.0-37.0) g/dL PT (10.0-12.5) sec INR (<1.2) Sodium 135 L (137-145) mmol/L Chloride (98-107) mmol/L Glucose (74-99) mg/dL AST 60 H (14-36) U/L ALT 84 H (4-34) U/L Troponin I (0.000-0.034) ng/mL Total Protein 5.4 L (6.3-8.2) g/dL Albumin 3.1 L (3.5-5.0) g/dL Urine Protein (Negative) Thrombosis Risk Factor Assmnt - Choose All That Apply Each Factor Represents 1 point: Age 41-60 years Thrombosis Risk Factor Assessment Total Risk Factor Score: 1 Thrombosis Risk Factor Assessment Level: Low Risk Assessment and Plan Assessment: Elevated troponin, rule out acute coronary syndrome Possible GI bleed with borderline hypotension Right pleural effusion and atelectasis. Cannot exclude pneumonia Plan: Start normal saline 75 mL/h Start Protonix IV Cardiology consult GI team consult GI and DVT prophylaxis We will continue monitoring Prognosis is guarded
--- NOTE | 2023-10-16 12:17 | P.CONS ---
History of Present Illness - Reason for Consult Consult date: 10/16/23 Hematochezia/concern for GI bleed Requesting physician: Poppy Maxwell - Chief Complaint Shortness of breath, hypotension - History of Present Illness This is a pleasant 53-year-old female who was sent in by her nephrology nurse when she was complaining of some shortness of breath and was found to be hypotensive. She had also mention that she had some bloody bowel movements to her nephrology nurse and he recommended that she come to the emergency department for further evaluation. She has a past medical history including atrial fibrillation, coronary artery disease status post CABG on aspirin and Plavix TIA, GERD, and thyroid disorder. She underwent a CT angiogram of the abdomen and pelvis which reported scattered atheromatous manage in the abdominal aorta and iliac vessels without high-grade stenosis. Branch vessels appear to be patent including the celiac and SMA. She states that she has not had any bleeding in at least 4 days. States that about 4 days ago for 3 days she was having bowel movements that had some bright red blood mixed in it may be up to 2 times a day. She was admitted to the hospital for further evaluation was noted to also have elevated troponins x 3. Hemoglobin has been stable at 13.1 on admission with a repeat of 12.5, platelet count 227,000, INR 1.3. Patient currently denies any abdominal pain, nausea or vomiting. States she did have some abdominal cramping at time of the bloody stools. Again no further blood in her stool for the last 4 days. She does take iron as well at home. Last colonoscopy with Dr. Brito on 07/20/2020 with findings of mild diverticulosis. Previous upper endoscopy done in November [address] Brito as well with findings of mild gastritis and small hiatal hernia. Review of Systems REVIEW OF SYSTEMS: CARDIOPULMONARY: No chest pain, some mild shortness of breath. Gastrointestinal: No abdominal pain. No nausea or vomiting. No hematemesis, coffee-ground emesis. Recent hematochezia about 4 days ago for 3 days. GENITOURINARY: No dysuria or hematuria. MUSCULOSKELETAL: Reports normal range of motion. SKIN: No rashes. No jaundice. ENDOCRINE: No chills, fevers. No excessive weight gain or loss. No polydipsia or polyuria. PSYCHIATRIC: Unremarkable. NEUROLOGY: No change in mental status. Denies dizziness, headache. ENT: Vision unremarkable. CONSTITUTIONAL: No recent weight loss. No fever, chills, night sweats. Past Medical History Past Medical History: Atrial Fibrillation, Coronary Artery Disease (CAD), Cancer, Chest Pain / Angina, CVA/TIA, GERD/Reflux, Myocardial Infarction ([place]), Skin Disorder, Thyroid Disorder Additional Past Medical History / Comment(s): LEAKY heart valve, IBS, hx CER VICAL CA, cardiomyopathy, BRONCHITIS, cervical DDD, facet joint syndrome, hx goiter. HX SEPSIS, TIA 11/2016. CYST LT KIDNEY. hx stomach ulcer. Last Myocardial Infarction Date:: 2007 History of Any Multi-Drug Resistant Organisms: None Reported Past Surgical History: Breast Surgery, Cardiac Ablation, Cholecystectomy, Coronary Bypass/CABG, Heart Catheterization, Hysterectomy, Orthopedic Surgery, Pacemaker, Tubal Ligation Additional Past Surgical History / Comment(s): THYROIDECTOMY, surgery for CER VICAL CANCER, LT BREAST BX X4, PAIN CLINIC PROCEDURES, LEFT ELBOW surgery, QUADRUPLE BYPASS 2016, MARSHALL eye surgery age 5. Past Anesthesia/Blood Transfusion Reactions: Motion Sickness, Postoperative Nausea & Vomiting (PONV) Additional Past Anesthesia/Blood Transfusion Reaction / Comm: SOME DIFFICULTY WAKING UP. DAUGHTER HAS DIFFICULTY WAKING UP . Type of Cardiac Device: AICD Device Placement Date:: 09/2023 Past Psychological History: Anxiety, Bipolar, Depression, Panic Disorder Smoking Status: Current every day smoker Past Alcohol Use History: Rare Past Drug Use History: Marijuana - Past Family History Father Family Medical History: Cancer Mother Additional Family Medical History / Comment(s): QUESTIONABLE "HEART PROBLEM AND TRIPLE BYPASS" Medications and Allergies Home Medications Medication Instructions Recorded Confirmed Type ALPRAZolam [Xanax] 1 mg PO BID@0900,1400 10/15/13 10/15/23 History HYDROcodone/APAP 10-325MG [[place] 1 tab PO Q6HR PRN 11/28/19 10/15/23 History 10-325] Famotidine [Pepcid] 20 mg PO DAILY@1100 12/15/21 10/15/23 History Butalb/APAP/Caff 50-325-40Mg 1 tab PO Q8H PRN 09/18/22 10/15/23 History [Fioricet 50-325-40] Levothyroxine Sodium [Synthroid] 175 mcg PO DAILY 09/18/22 10/15/23 History ALPRAZolam [Xanax] 2 mg PO HS 10/15/23 10/15/23 History Clopidogrel [Plavix] 75 mg PO DAILY 10/15/23 10/15/23 History Linaclotide [Linzess] 72 mcg PO DAILY PRN 10/15/23 10/15/23 History Midodrine HCl [ProAmatine] 10 mg PO TID PRN 10/15/23 10/15/23 History Pravastatin Sodium [Pravachol] 20 mg PO HS 10/15/23 10/15/23 History Allergies Allergy/AdvReac Type Severity Reaction Status Date / Time venom-honey bee Allergy Severe Anaphylaxis Verified 10/15/23 17:27 [bee venom (honey bee)] codeine phosphate AdvReac Chest Pain Verified 10/15/23 17:27 [From Tylenol-Codeine #3] tramadol HCl [From Ultram] AdvReac Hallucinati Verified 10/15/23 17:27 ons BIPOLAR MEDICATION AdvReac Unknown States it Uncoded 10/15/23 17:27 "knocks her out" Physical Exam Vitals: Vital Signs Temp Pulse Pulse Resp BP BP Pulse Ox 10/16/23 04:00 98.2 F 71 16 109/70 96 10/16/23 00:00 97.7 F 75 16 102/78 95 10/15/23 20:30 79 18 112/79 10/15/23 18:59 69 18 111/71 92 L 10/15/23 14:34 98 F 70 18 111/72 91 L Intake and Output 10/15/23 10/16/23 10/16/23 22:59 06:59 14:59 Other: Voiding Method Toilet # Voids 1 Weight 81.647 kg General appearance: The patient is alert, oriented, appears in no acute distress . HET: Head is normocephalic and atraumatic. Conjunctiva pink. Sclera anicteric. Neck: Supple without lymphadenopathy. Trachea midline. Heart: Regular. Lungs: Equal expansion, normal respiratory effort. Abdomen: Soft, nontender, nondistended. Skin: No rashes. No jaundice. Extremities: Normal skin color and turgor. No pedal edema. Neurological: No focal deficits. Alert and oriented x3. Results CBC & Chem 7: 10/16/23 03:13 10/16/23 03:13 Labs: Abnormal Lab Results - Last 24 Hours (Table) 10/15/23 10/15/23 10/15/23 Range/Units 12:52 12:52 12:52 MCV (80.0-100.0) fL MCHC (31.0-37.0) g/dL PT 14.0 H (10.0-12.5) sec INR 1.3 H (<1.2) Sodium 136 L (137-145) mmol/L Chloride 108 H (98-107) mmol/L Glucose 104 H (74-99) mg/dL AST 106 H (14-36) U/L ALT 105 H (4-34) U/L Troponin I 0.043 H* (0.000-0.034) ng/mL Total Protein 5.8 L (6.3-8.2) g/dL Albumin 3.2 L (3.5-5.0) g/dL Urine Protein (Negative) 10/15/23 10/15/23 10/15/23 Range/Units 13:14 15:02 17:31 MCV (80.0-100.0) fL MCHC (31.0-37.0) g/dL PT (10.0-12.5) sec INR (<1.2) Sodium (137-145) mmol/L Chloride (98-107) mmol/L Glucose (74-99) mg/dL AST (14-36) U/L ALT (4-34) U/L Troponin I 0.040 H* 0.039 H* (0.000-0.034) ng/mL Total Protein (6.3-8.2) g/dL Albumin (3.5-5.0) g/dL Urine Protein Trace H (Negative) 10/16/23 10/16/23 Range/Units 03:13 03:13 MCV 100.2 H (80.0-100.0) fL MCHC 30.9 L (31.0-37.0) g/dL PT (10.0-12.5) sec INR (<1.2) Sodium 135 L (137-145) mmol/L Chloride (98-107) mmol/L Glucose (74-99) mg/dL AST 60 H (14-36) U/L ALT 84 H (4-34) U/L Troponin I (0.000-0.034) ng/mL Total Protein 5.4 L (6.3-8.2) g/dL Albumin 3.1 L (3.5-5.0) g/dL Urine Protein (Negative) Comments: CT angiogram abdomen and pelvis: CT angiogram of the abdomen and pelvis which reported scattered atheromatous manage in the abdominal aorta and iliac vessels without high-grade stenosis. Branch vessels appear to be patent including the celiac and SMA. Assessment and Plan (1) Hematochezia Narrative/Plan: 53-year-old female with multiple comorbidities including atrial fibrillation coronary artery disease status post CABG on Plavix and aspirin was sent in for hypotension, shortness of breath and reported recent hematochezia. Patient reportedly had 3 days of blood noted in her stool she states it was bright red blood. No previous history of GI bleed. States she may have had some straining. She has not had any bleeding for at least 4 to 5 days. Hemoglobin stable on admission. Last colonoscopy in 2020 with findings of diverticulosis and previous upper endoscopy in 2019 with mild gastritis small hiatal hernia. Unclear etiology of hematochezia could be hemorrhoidal in nature. Again hemoglobin stable, patient presenting with elevated troponins and cardiac workup. Will hold off on endoscopic evaluation at this time until patient is cleared by cardiology and can consider outpatient endoscopic evaluation. Current Visit: Yes Status: Acute Code(s): K92.1 - MELENA SNOMED Code(s): 646606460 (2) Coronary artery disease Current Visit: Yes Status: Acute Code(s): I25.10 - ATHSCL HEART DISEASE OF [place] CORONARY ARTERY W/O ANG PCTRS SNOMED Code(s): 03183920 (3) Elevated troponin Current Visit: Yes Status: Acute Code(s): R79.89 - OTHER SPECIFIED ABNORMAL FINDINGS OF BLOOD CHEMISTRY SNOMED Code(s): 796374313 (4) Shortness of breath Current Visit: Yes Status: Acute Code(s): R06.02 - SHORTNESS OF BREATH SNOMED Code(s): 035344411 Plan: 1. Continue symptomatic and supportive care 2. Diet as tolerated 3. Await workup and recommendations from cardiology 4. Daily CBC 5. Monitor for bleeding 6. Plavix on hold currently. if patient has no further bleeding we can consider resuming 7. Further recommendations forthcoming per gastroenterology based on clinical course Thank you for this consultation, we will continue to follow. Dr. Kasey Campa I agree with the dictator's note, documented as a scribe by Dayana [place].
--- NOTE | 2023-10-16 14:00 | P.CRDCN ---
History of Present Illness History of present illness: HISTORY OF PRESENT ILLNESS: This is a 53-year-old female with a past medical history significant for hypertension, hyperlipidemia, coronary artery disease with previous CABG and prior PCI in September 2022 of SVG to OM. Patient follows in the office with Dr. Bourne. We have been asked to see the patient in consultation for elevated troponins. Patient examined at the bedside in the emergency room. Patient presented to the hospital with a chief complaint of abdominal pain and bright red blood per rectum. Patient's hemoglobin has been stable. Patient denies any chest pain or pressure. She denies any shortness of breath. DIAGNOSTICS: - EKG reveals paced rhythm. - Chest xray increased opacity right lower lobe likely reflecting pleural effusion with underlying atelectasis or infiltrate difficult to exclude.. - Laboratory data: WBC 8.6. Hemoglobin 12.5. Platelet count 227. Sodium 135. Potassium 4.1. BUN 15. Creatinine 0.77. AST 106. ALT 105. Troponin 0.043. 0.040. 0.039. - Current home cardiac medications include Plavix 75 mg daily and pravastatin 20 mg at night. - Most recent echocardiogram obtained in September 2022 revealing ejection fraction 40%, inferior posterior wall is hypokinetic, moderate MR, mild TR - Cardiac catheterization history: September 2022 with successful stenting of SVG to OM. Patent SVG to RCA with good distal flow. REVIEW OF SYSTEMS: At the time of my exam: CONSTITUTIONAL: Denies fever or chills. HEENT: Denies blurred vision, vision changes, or eye pain. Denies hemoptysis CARDIOVASCULAR: Denies chest pain. Denies orthopnea. Denies PND. Denies palpitations RESPIRATORY: Denies shortness of breath. GASTROINTESTINAL: Denies abdominal pain. Denies nausea or vomiting. HEMATOLOGIC: Denies bleeding disorders. GENITOURINARY: Denies any blood in urine. SKIN: Denies pruitis. Denies rash. PHYSICAL EXAM: VITAL SIGNS: Reviewed. GENERAL: Well-developed in no acute distress. HEENT: Head is normocephalic. Pupils are equal, round. Sclerae anicteric. Mucous membranes of the mouth are moist. Neck supple. No JVD or thyromegaly LUNGS: Respirations even and unlabored. Lungs essentially clear to auscultation bilaterally. HEART: Regular rate and rhythm. S1 and S2 heard. ABDOMEN: Soft. Nondistended. Nontender. EXTREMITIES: Normal range of motion. No clubbing or cyanosis. Peripheral pulses intact. No lower extremity edema NEUROLOGIC: Awake and alert. Oriented x 3. ASSESSMENT: Abdominal pain Bright red blood per rectum, rule out GI bleed, hemoglobin stable Abnormal troponins, flat, of unclear significance, no evidence of acute coronary syndrome Mildly elevated LFTs Coronary artery disease with previous CABG and PCI of SVG to OM Known severe ischemic cardiomyopathy History of PPM insertion and ICD, in [place], September 2023 Hypertension Hyperlipidemia Nicotine dependence History of medication noncompliance PLAN: Obtain 2D echo to assess cardiac structure and function GI has been consulted for possible GI bleed Resume aspirin. Plavix may be discontinued as patient stenting was greater than 1 year ago. Repeat hemoglobin this evening Patient is stable for discharge from a cardiac standpoint Nurse practitioner note has been reviewed by physician. Signing provider agrees with the documented findings, assessment, and plan of care documented by ROLLER MECHANIC as a scribe. Past Medical History Past Medical History: Atrial Fibrillation, Coronary Artery Disease (CAD), Cancer, Chest Pain / Angina, CVA/TIA, GERD/Reflux, Myocardial Infarction (NC), Skin Disorder, Thyroid Disorder Additional Past Medical History / Comment(s): LEAKY heart valve, IBS, hx CERVICAL CA, cardiomyopathy, BRONCHITIS, cervical DDD, facet joint syndrome, hx goiter. HX SEPSIS, TIA 11/2016. CYST LT KIDNEY. hx stomach ulcer. Last Myocardial Infarction Date:: 2007 History of Any Multi-Drug Resistant Organisms: None Reported Past Surgical History: Breast Surgery, Cardiac Ablation, Cholecystectomy, Coronary Bypass/CABG, Heart Catheterization, Hysterectomy, Orthopedic Surgery, Pacemaker, Tubal Ligation Additional Past Surgical History / Comment(s): THYROIDECTOMY, surgery for CERVICAL CANCER, LT BREAST BX X4, PAIN CLINIC PROCEDURES, LEFT ELBOW surgery, QUADRUPLE BYPASS 2016, MARSHALL eye surgery age 5. Past Anesthesia/Blood Transfusion Reactions: Motion Sickness, Postoperative Nausea & Vomiting (PONV) Additional Past Anesthesia/Blood Transfusion Reaction / Comment(s): SOME DIFFICULTY WAKING UP. DAUGHTER HAS DIFFICULTY WAKING UP . Past Psychological History: Anxiety, Bipolar, Depression, Panic Disorder Smoking Status: Current every day smoker Past Alcohol Use History: Rare Past Drug Use History: Marijuana - Past Family History Father Family Medical History: Cancer Mother Additional Family Medical History / Comment(s): QUESTIONABLE "HEART PROBLEM AND TRIPLE BYPASS" Medications and Allergies Home Medications Medication Instructions Recorded Confirmed Type ALPRAZolam [Xanax] 1 mg PO BID@0900,1400 10/15/13 10/15/23 History HYDROcodone/APAP 10-325MG [[place] 1 tab PO Q6HR PRN 11/28/19 10/15/23 History 10-325] Famotidine [Pepcid] 20 mg PO DAILY@1100 12/15/21 10/15/23 History Butalb/APAP/Caff 50-325-40Mg 1 tab PO Q8H PRN 09/18/22 10/15/23 History [Fioricet 50-325-40] Levothyroxine Sodium [Synthroid] 175 mcg PO DAILY 09/18/22 10/15/23 History ALPRAZolam [Xanax] 2 mg PO HS 10/15/23 10/15/23 History Clopidogrel [Plavix] 75 mg PO DAILY 10/15/23 10/15/23 History Linaclotide [Linzess] 72 mcg PO DAILY PRN 10/15/23 10/15/23 History Midodrine HCl [ProAmatine] 10 mg PO TID PRN 10/15/23 10/15/23 History Pravastatin Sodium [Pravachol] 20 mg PO HS 10/15/23 10/15/23 History Allergies Allergy/AdvReac Type Severity Reaction Status Date / Time venom-honey bee Allergy Severe Anaphylaxis Verified 10/15/23 17:27 [bee venom (honey bee)] codeine phosphate AdvReac Chest Pain Verified 10/15/23 17:27 [From Tylenol-Codeine #3] tramadol HCl [From Ultram] AdvReac Hallucinati Verified 10/15/23 17:27 ons BIPOLAR MEDICATION AdvReac Unknown States it Uncoded 10/15/23 17:27 "knocks her out" Physical Exam Vitals: Vital Signs Temp Pulse Pulse Resp BP BP Pulse Ox 10/16/23 04:00 98.2 F 71 16 109/70 96 10/16/23 00:00 97.7 F 75 16 102/78 95 10/15/23 20:30 79 18 112/79 10/15/23 18:59 69 18 111/71 92 L 10/15/23 14:34 98 F 70 18 111/72 91 L 05/13/24 11:41 97.5 F L 75 16 114/81 98 Intake and Output 10/15/23 10/16/23 10/16/23 22:59 06:59 14:59 Other: Voiding Method Toilet # Voids 1 Results 10/16/23 03:13 10/16/23 03:13 Cardiac Enzymes 10/15/23 10/15/23 10/15/23 Range/Units 12:52 12:52 15:02 AST 106 H (14-36) U/L Troponin I 0.043 H* 0.040 H* (0.000-0.034) ng/mL 10/15/23 10/16/23 Range/Units 17:31 03:13 AST 60 H (14-36) U/L Troponin I 0.039 H* (0.000-0.034) ng/mL Coagulation 10/15/23 Range/Units 12:52 PT 14.0 H (10.0-12.5) sec APTT 24.6 (22.0-30.0) sec CBC 10/15/23 10/16/23 Range/Units 12:52 03:13 WBC 10.1 8.6 (3.8-10.6) k/uL RBC 4.33 4.04 (3.80-5.40) m/uL Hgb 13.1 12.5 (11.4-16.0) gm/dL Hct 42.1 40.4 (34.0-46.0) % Plt Count 241 227 (150-450) k/uL Comprehensive Metabolic Panel 10/15/23 10/16/23 Range/Units 12:52 03:13 Sodium 136 L 135 L (137-145) mmol/L Potassium 4.4 4.1 (3.5-5.1) mmol/L Chloride 108 H 107 (98-107) mmol/L Carbon Dioxide 22 24 (22-30) mmol/L BUN 15 17 (7-17) mg/dL Creatinine 0.72 0.77 (0.52-1.04) mg/dL Glucose 104 H 96 (74-99) mg/dL Calcium 8.9 8.6 (8.4-10.2) mg/dL AST 106 H 60 H (14-36) U/L ALT 105 H 84 H (4-34) U/L Alkaline Phosphatase 72 73 (38-126) U/L Total Protein 5.8 L 5.4 L (6.3-8.2) g/dL Albumin 3.2 L 3.1 L (3.5-5.0) g/dL Current Medications Generic Name Dose Route Start Last Admin Trade Name Freq PRN Reason Stop Dose Admin Morphine Sulfate 4 mg 10/15/23 16:22 Morphine Sulfate 4 Mg/Ml Syringe IV Q4HR PRN Severe Pain (Scale 7 to 10) Naloxone HCl 0.2 mg 10/15/23 15:31 Naloxone 0.4 Mg/Ml 1 Ml Vial IV Q2M PRN Opioid Reversal Ondansetron HCl 4 mg 10/15/23 16:22 Ondansetron 4 Mg/2 Ml Vial IVP Q8HR PRN Nausea And Vomiting Intake and Output 10/15/23 10/16/23 10/16/23 22:59 06:59 14:59 Other: Voiding Method Toilet # Voids 1 10/16/23 03:13 10/16/23 03:13
[2023-10-16] MEDS: DAPAGLIFLOZIN PROPANEDIOL 10 MG TABLET PO SCH (14:21)
[2023-10-16] MEDS: ISOSORBIDE MONONITRATE ER 30 MG TAB.ER.24H PO SCH (14:21)
[2023-10-16] MEDS: SPIRONOLACTONE 25 MG TAB PO SCH (14:21)
[2023-10-16] MEDS: ASPIRIN 81 MG PO SCH (14:21)
[2023-10-16 18:45] LABS: HCT 42.5 % (34.0-46.0); HGB 12.9 gm/dL (11.4-16.0); Hypochromasia Slight; MCH 30.2 pg (25.0-35.0); MCHC 30.4 g/dL (31.0-37.0); MCV 99.1 fL (80.0-100.0); Mean Platelet Volume 8.8; Platelet Count 221 k/uL (150-450); RBC 4.29 m/uL (3.80-5.40); RDW 13.6 % (11.5-15.5); WBC 8.6 k/uL (3.8-10.6)
[2023-10-16 20:26] VITALS: RESP 16
[2023-10-16] MEDS: ALPRAZolam 1 MG TAB PO STA (21:14)
[2023-10-17] MEDS: MIDODRINE 5 MG TAB PO SCH (06:25)
--- NOTE | 2023-10-17 07:00 | CA ---
Transthoracic Echo Report Name: Sia Wade Age: 53 Gender: F : 1970 Exam Date: 10/16/2023 13:49 Exam Location: [facility] Ht (in): 64 Wt (lb): 180 Ordering Physician: Dimple Finnegan Attending/Referring Phys: [id number], Kain [employer]vac Sheet Metal Installer Helper Monica Son, [place] Procedure CPT: Indications: lv function, elevated trops Cardiac Hx: Technical Quality: Fair Contrast 1: Definity Total Dose (mL): 2 Contrast 2: Total Dose (mL): MEASUREMENTS (Male / Female) Normal Values 2D ECHO LV Diastolic Diameter PLAX 6.4 cm 4.2 - 5.9 / 3.9 - 5.3 cm LV Systolic Diameter PLAX 6.2 cm IVS Diastolic Thickness 0.6 cm 0.6 - 1.0 / 0.6 - 0.9 cm LVPW Diastolic Thickness 0.6 cm 0.6 - 1.0 / 0.6 - 0.9 cm LV Relative Wall Thickness 0.2 RV Internal Dim ED PLAX 2.1 cm LA Systolic Diameter LX 4.8 cm 3.0 - 4.0 / 2.7 - 3.8 cm LA Volume 91.7 cm??? 18 - 58 / 22 - 52 cm??? LA Volume Index 47.1 cm???/m??? 16 - 28 cm???/m??? M-MODE Aortic Root Diameter MM 2.8 cm LA Systolic Diameter MM 4.3 cm LA Ao Ratio MM 1.5 AV Cusp Separation MM 1.6 cm DOPPLER AV Peak Velocity 117.3 cm/s AV Peak Gradient 5.5 mmHg TR Peak Velocity 304.2 cm/s TR Peak Gradient 37.0 mmHg Right Atrial Pressure 10.0 mmHg Pulmonary Artery Systolic Pressu 47.0 mmHg Right Ventricular Systolic Press 47.0 mmHg FINDINGS Left Ventricle Left ventricular ejection fraction is estimated at 10-15 %. Severely increased left ventricular diastolic diameter. Severely reduced global left ventricular systolic function. Left ventricular wall thickness normal. Dilated left ventricle Right Ventricle Moderate right ventricular dilatation. Moderate pulmonary hypertension. Right Atrium Severe right atrial dilatation. Catheter/pacemaker wire in the right atrial cavity. Left Atrium Severely increased left atrial diameter. Severely increased left atrial volume. Mildly increased left atrial area. Mitral Valve Structurally normal mitral valve. Mitral valve thickened. Moderate mitral regurgitation. Aortic Valve Trileaflet aortic valve. No aortic valve stenosis or regurgitation. Tricuspid Valve Structurally normal tricuspid valve. Mild tricuspid regurgitation. Pulmonic Valve Structurally normal pulmonic valve. No pulmonic stenosis. Trace pulmonic regurgitation. Pericardium No pericardial or pleural effusion. Aorta Normal size aortic root and proximal ascending aorta. CONCLUSIONS 1. Dilated left ventricle with severe global hypokinesis 2. A wire is noted in the right ventricle 3. Moderate mitral with mild tricuspid regurgitation and moderate pulmonary hypertension Previewed by: Dr. Sonia Bourne MD (Electronically Signed) Final Date: 17 Oct 2023 07:00
[2023-10-17 07:11] VITALS: TEMP 98.2
[2023-10-17] MEDS: FUROSEMIDE 10 MG/ML 2 ML VIAL IV SCH (08:50)
[2023-10-17] MEDS: CLOPIDOGREL 75 MG TAB PO SCH (08:51)
[2023-10-17 11:19] LABS: HCT 43.2 % (34.0-46.0); HGB 13.5 gm/dL (11.4-16.0); Hypochromasia Marked; MCH 32.2 pg (25.0-35.0); MCHC 31.1 g/dL (31.0-37.0); MCV 103.3 fL (80.0-100.0); Macrocytosis Slight; Mean Platelet Volume 9.2; Platelet Count 204 k/uL (150-450); RBC 4.19 m/uL (3.80-5.40); RDW 13.9 % (11.5-15.5); WBC 9.9 k/uL (3.8-10.6)
[2023-10-17 11:42] LABS: African American GFR (CKD) >90 (>60 ml/min/1.73 sqM); Anion Gap 6 mmol/L; Blood Urea Nitrogen 13 mg/dL (7-17); Calcium 8.8 mg/dL (8.4-10.2); Carbon Dioxide 25 mmol/L (22-30); Chloride 106 mmol/L (98-107); Glucose 179 mg/dL (74-99); Non-African American GFR(CKD) >90 (>60 ml/min/1.73 sqM); Sodium 137 mmol/L (137-145)
[2023-10-17 11:43] LABS: Potassium 4.1 mmol/L (3.5-5.1)
--- NOTE | 2023-10-17 11:59 | P.PN ---
Subjective HISTORY OF PRESENT ILLNESS: This is a 53-year-old female with a past medical history significant for hypertension, hyperlipidemia, coronary artery disease with previous CABG and prior PCI in September 2022 of SVG to OM. Patient follows in the office with Dr. Bourne. We have been asked to see the patient in consultation for elevated troponins. Patient examined at the bedside in the emergency room. Patient presented to the hospital with a chief complaint of abdominal pain and bright red blood per rectum. Patient's hemoglobin has been stable. Patient denies any chest pain or pressure. She denies any shortness of breath. DIAGNOSTICS: - EKG reveals paced rhythm. - Chest xray increased opacity right lower lobe likely reflecting pleural effu obinna with underlying atelectasis or infiltrate difficult to exclude.. - Laboratory data: WBC 8.6. Hemoglobin 12.5. Platelet count 227. Sodium 135. Potassium 4.1. BUN 15. Creatinine 0.77. AST 106. ALT 105. Troponin 0.043. 0.040. 0.039. - Current home cardiac medications include Plavix 75 mg daily and pravastatin 20 mg at night. - Most recent echocardiogram obtained in September 2022 revealing ejection fraction 40%, inferior posterior wall is hypokinetic, moderate MR, mild TR - Cardiac catheterization history: September 2022 with successful stenting of SVG to OM. Patent SVG to RCA with good distal flow. 10/17/2023 Patient examined this morning at the bedside. Patient currently denies chest pain or pressure. She denies shortness of breath. Hemoglobin remained stable at 12.9. Echocardiogram completed revealing ejection fraction 10 to 15%, moderate pulmonary hypertension, moderate MR, mild TR PHYSICAL EXAM: VITAL SIGNS: Reviewed. GENERAL: Well-developed in no acute distress. HEENT: Head is normocephalic. Pupils are equal, round. Sclerae anicteric. Mucous membranes of the mouth are moist. Neck supple. No JVD or thyromegaly LUNGS: Respirations even and unlabored. Lungs essentially clear to auscultation bilaterally. HEART: Regular rate and rhythm. S1 and S2 heard. ABDOMEN: Soft. Nondistended. Nontender. EXTREMITIES: Normal range of motion. No clubbing or cyanosis. Peripheral pulses intact. No lower extremity edema NEUROLOGIC: Awake and alert. Oriented x 3. ASSESSMENT: Abdominal pain Bright red blood per rectum, rule out GI bleed, hemoglobin stable Abnormal troponins, flat, of unclear significance, no evidence of acute coronary syndrome Mildly elevated LFTs Coronary artery disease with previous CABG and PCI of SVG to OM Known severe ischemic cardiomyopathy [place] Hyperlipidemia Nicotine dependence History of medication noncompliance Moderate pulmonary hypertension PLAN: Continue aspirin. Plavix does not need to be resumed as patient's stenting was greater than 1 year ago. GI following Patient is stable for discharge from a cardiac standpoint Patient is to follow-up postdischarge in the office with Dr. Bourne We will sign off. Please reconsult if needed. Nurse practitioner note has been reviewed by physician. Signing provider agrees with the documented findings, assessment, and plan of care documented by RELIABILITY TECHNOLOGIST as a scribe. Objective - Vital Signs Vital signs: Vital Signs Temp 98.2 F 10/17/23 06:27 Pulse 68 10/17/23 06:27 Resp 16 10/17/23 06:27 BP 110/71 10/17/23 06:27 Pulse Ox 93 L 10/17/23 06:27 FiO2 Intake & Output 10/16/23 10/17/23 10/17/23 18:59 06:59 18:59 Other: Voiding Method Toilet # Voids 1 - Labs CBC & Chem 7: 10/17/23 09:52 10/17/23 09:52 Labs: Abnormal Lab Results - Last 24 Hours (Table) 10/16/23 Range/Units 18:14 MCHC 30.4 L (31.0-37.0) g/dL
[2023-10-17 12:45] VITALS: BP 101/61; PULSE 60
--- NOTE | 2023-10-17 13:07 | P.PN ---
Subjective Progress Note Date: 10/17/23 Principal diagnosis: Shortness of breath, hematochezia This is a pleasant 53-year-old female who was sent in by her machine i trimmer when she was complaining of some shortness of breath and was found to be hypotensive. She had also mention that she had some bloody bowel movements to her machine i trimmer and he recommended that she come to the emergency department for further evaluation. She has a past medical history including atrial fibrillation, coronary artery disease status post CABG on aspirin and Plavix TIA, GERD, and thyroid disorder. She underwent a CT angiogram of the abdomen and pelvis which reported scattered atheromatous manage in the abdominal aorta and iliac vessels without high-grade stenosis. Branch vessels appear to be patent including the celiac and SMA. She states that she has not had any bleeding in at least 4 days. States that about 4 days ago for 3 days she was having bowel movements that had some bright red blood mixed in it may be up to 2 times a day. She was admitted to the hospital for further evaluation was noted to also have elevated troponins x 3. Hemoglobin has been stable at 13.1 on admission with a repeat of 12.5, platelet count 227,000, INR 1.3. Patient currently denies any abdominal pain, nausea or vomiting. States she did have some abdominal cramping at time of the bloody stools. Again no further blood in her stool for the last 4 days. She does take iron as well at home. Last colonoscopy with Dr. Brito on 07/20/2020 with findings of mild diverticulosis. Previous upper endoscopy done in November [address] Nath as well with findings of mild gastritis and small hiatal hernia. 10/17/2023 Patient is seen and examined today as a follow-up. She denies any shortness of breath, chest pain, abdominal pain, nausea or vomiting. Denies any rectal bleeding or blood in her stool. Repeat hemoglobin 13.5 Objective - Vital Signs Vital signs: Vital Signs Temp 98.2 F 10/17/23 06:27 Pulse 68 10/17/23 06:27 Resp 16 10/17/23 06:27 BP 110/71 10/17/23 06:27 Pulse Ox 93 L 10/17/23 06:27 FiO2 Intake & Output 10/16/23 10/17/23 10/17/23 18:59 06:59 18:59 Other: Voiding Method Toilet # Voids 1 - Exam General appearance: The patient is alert, oriented, appears in no acute distress. HET: Head is normocephalic and atraumatic. Conjunctiva pink. Sclera anicteric. Neck: Supple without lymphadenopathy. Abdomen: Soft, nontender, nondistended with bowel sounds. No guarding or rigidity. Extremities: Normal skin color and turgor. No pedal edema Skin: No rashes, no jaundice Neurological: No focal deficits. Alert and oriented. - Labs CBC & Chem 7: 10/17/23 09:52 10/17/23 09:52 Labs: Abnormal Lab Results - Last 24 Hours (Table) 10/16/23 Range/Units 18:14 MCHC 30.4 L (31.0-37.0) g/dL Assessment and Plan (1) Hematochezia Narrative/Plan: 53-year-old female with multiple comorbidities including atrial fibrillation coronary artery disease status post CABG on Plavix and aspirin was sent in for hypotension, shortness of breath and reported recent hematochezia. Patient reportedly had 3 days of blood noted in her stool she states it was bright red blood. No previous history of GI bleed. States she may have had some str aining. She has not had any bleeding for at least 4 to 5 days. Hemoglobin stable on admission. Last colonoscopy in 2020 with findings of diverticulosis and previous upper endoscopy in 2019 with mild gastritis small hiatal hernia. Unclear etiology of hematochezia could be hemorrhoidal in nature. Again hemoglobin stable, patient presenting with elevated troponins and cardiac workup. Will hold off on endoscopic evaluation at this time until patient is cleared by cardiology and can consider outpatient endoscopic evaluation. No further hematochezia. Hemoglobin stable repeat hemoglobin 13.5. No plans on endoscopic evaluation and patient is cleared for discharge. Current Visit: Yes Status: Acute Code(s): K92.1 - MELENA SNOMED Code(s): 537502835 (2) Coronary artery disease Current Visit: Yes Status: Acute Code(s): I25.10 - ATHSCL HEART DISEASE OF [place] CORONARY ARTERY W/O ANG PCTRS SNOMED Code(s): 91876801 (3) Elevated troponin Current Visit: Yes Status: Acute Code(s): R79.89 - OTHER SPECIFIED ABNORMAL FINDINGS OF BLOOD CHEMISTRY SNOMED Code(s): 808390959 (4) Shortness of breath Current Visit: Yes Status: Acute Code(s): R06.02 - SHORTNESS OF BREATH SNOMED Code(s): 167924086 Plan: 1. Continue symptomatic and supportive care 2. Diet as tolerated 3. Continue with recommendations from cardiology 4. May resume Plavix however cardiology states not necessary. 5. No plans on endoscopic evaluation Thank you for this consultation, patient is cleared from gastroenterology for discharge. Dr. Kasey Campa I agree with the dictator's note, documented as a scribe by Dayana [place].
--- NOTE | 2023-10-18 00:59 | P.DS ---
Providers Date of admission: 10/15/23 16:22 Attending physician: Santi Roberts MD Consults: 10/15/23 15:31 Consult Physician Urgent Consulting Provider: Sandra Campa Consult Reason/Comments: hematochezia/concern for GI bleed Do you want consulting provider notified?: Yes Primary care physician: Tremayne Dobbs [facility] Course: Diagnoses: Elevated troponin, of unclear significance, mostly secondary to cardiomyopathy. Acute coronary syndrome ruled out Possible GI bleed, hemoglobin stable. Normal further bleeding borderline hypotension Right pleural effusion and atelectasis. [place] secondary to CHF Obesity with BMI of 30.9 history of coronary artery disease status post stent to OM also with history of CABG Hospital course: This is a pleasant 53 years old female with past medical history of multiple medical problems as below. Yesterday she went to see her carbon furnace operator helper Dr. Romano because she was not feeling well she was feeling off. Patient states she has been complaining from shortness of breath on and off for the last month, she was feeling shortness of breath for the last few 4 days, with no chest pain Chest x-ray showing possible right pleural effusion and atelectasis, cannot exc lude pneumonia Troponin were elevated. Patient evaluated by carbon furnace operator helper. Patient was taking Plavix for his history of coronary artery disease status post stent to OM also with history of CABG. Banks karla on presentation/suspicion of GI bleed therefore Plavix was discontinued and cardiology started patient on aspirin 81 mg. Still risk of bleeding explained for patient extensively and she agrees Chest x-ray shows evidence of fluid overload however patient is asymptomatic and saturating well on room air. Patient denies chest pain on discharge. No specific GI urinary complaint. No headache or dizziness. Get up and go test is normal Patient is eager to go home today Cardiology team already signed off the case. I discussed the case with GI team also cleared her for discharge Problems and management plan were discussed with the patient and he verbalized understanding and acceptance Patient was found stable and can be discharged home in guarded prognosis however he needs follow-up as an outpatient. Patient was instructed to follow up with PCP Dr. Dobbs within one week and patient agrees Patient wants to switch her outside facility physician and follow-up with Dr. Bourne, contact information is provided for follow-up and she is agreeable Patient also was instructed to follow-up with Dr. Cameron from GI in 2 weeks and she agrees , Contact information Physical exam Gen: patient is a AAOx3, no distress CVS: S1-S2, RRR, no murmur Lungs: B/L CTA, no wheezing Abdomen: soft, no distention, no tenderness, positive bowel sounds Extremity: no leg edema or induration Time spent more than 35 minutes Patient Condition at Discharge: Stable Plan - Discharge Summary New Discharge Prescriptions: New Spironolactone [Aldactone] 25 mg PO DAILY #30 tab Dapagliflozin Propanediol [Farxiga] 10 mg PO DAILY #30 tab Isosorbide Mononitrate ER [Imdur] 30 mg PO DAILY #30 tab Aspirin 81 mg PO DAILY #30 tab Continue Famotidine [Pepcid] 20 mg PO DAILY@1100 Pravastatin Sodium [Pravachol] 20 mg PO HS Midodrine HCl [ProAmatine] 10 mg PO TID PRN PRN Reason: SBP less than 130 Linaclotide [Linzess] 72 mcg PO DAILY PRN PRN Reason: ibs Butalb/APAP/Caff 50-325-40Mg [Fioricet 50-325-40] 1 tab PO Q8H PRN PRN Reason: Migraine Headache Levothyroxine Sodium [Synthroid] 175 mcg PO DAILY Discontinued ALPRAZolam [Xanax] 1 mg PO BID@0900,1400 HYDROcodone/APAP 10-325MG [Copen 10-325] 1 tab PO Q6HR PRN PRN Reason: Pain Clopidogrel [Plavix] 75 mg PO DAILY ALPRAZolam [Xanax] 2 mg PO HS Discharge Medication List Famotidine [Pepcid] 20 mg PO DAILY@1100 12/15/21 [History] Butalb/APAP/Caff 50-325-40Mg [Fioricet 50-325-40] 1 tab PO Q8H PRN 09/18/22 [History] Levothyroxine Sodium [Synthroid] 175 mcg PO DAILY 09/18/22 [History] Linaclotide [Linzess] 72 mcg PO DAILY PRN 10/15/23 [History] Midodrine HCl [ProAmatine] 10 mg PO TID PRN 10/15/23 [History] Pravastatin Sodium [Pravachol] 20 mg PO HS 10/15/23 [History] Aspirin 81 mg PO DAILY #30 tab 10/17/23 [Rx] Dapagliflozin Propanediol [Farxiga] 10 mg PO DAILY #30 tab 10/17/23 [Rx] Isosorbide Mononitrate ER [Imdur] 30 mg PO DAILY #30 tab 10/17/23 [Rx] Spironolactone [Aldactone] 25 mg PO DAILY #30 tab 10/17/23 [Rx] Follow up Appointment(s)/Referral(s): Sonia Bourne MD [STAFF PHYSICIAN] - 10/24/23 10:45 am Sandra Campa MD [STAFF PHYSICIAN] - 11/02/23 11:30 am Tremayne Dobbs DO [Primary Care Provider] - 1-2 days Activity/Diet/Wound Care/Special Instructions: Heart healthy diet activity is restricted till you see your doctor Discharge Disposition: HOME SELF-CARE
== END 2023-10-17 13:37 | disposition home or self-care (01) ==
LOC: EC 11:06 → 3SCARD 16:22 → 1SOBS 10-16 09:51 → 3SCARD 10-16 20:41
PROVIDERS: ADMIT Internal Medicine; ATTEND Internal Medicine
DX: J90 Pleural effusion, not elsewhere classified (principal); R79.89 Other specified abnormal findings of blood chemistry; I48.91 Unspecified atrial fibrillation; I25.10 Atherosclerotic heart disease of native coronary artery without angina pectoris; K21.9 Gastro-esophageal reflux disease without esophagitis; Z90.49 Acquired absence of other specified parts of digestive tract; F17.210 Nicotine dependence, cigarettes, uncomplicated; Z95.5 Presence of coronary angioplasty implant and graft; Z95.1 Presence of aortocoronary bypass graft; Z91.148 Patient's other noncompliance with medication regimen for other reason; Z90.710 Acquired absence of both cervix and uterus; Z87.11 Personal history of peptic ulcer disease; Z86.73 Personal history of transient ischemic attack (TIA), and cerebral infarction without residual deficits; Z85.41 Personal history of malignant neoplasm of cervix uteri; Z79.899 Other long term (current) drug therapy; Z79.890 Hormone replacement therapy; Z79.82 Long term (current) use of aspirin; Z79.02 Long term (current) use of antithrombotics/antiplatelets; Z68.30 Body mass index [BMI] 30.0-30.9, adult; I11.0 Hypertensive heart disease with heart failure; I25.5 Ischemic cardiomyopathy; I27.20 Pulmonary hypertension, unspecified; F31.9 Bipolar disorder, unspecified; F17.200 Nicotine dependence, unspecified, uncomplicated; F10.20 Alcohol dependence, uncomplicated; E78.5 Hyperlipidemia, unspecified; I24.9 Acute ischemic heart disease, unspecified; I50.9 Heart failure, unspecified; J98.11 Atelectasis
CPT/HCPCS: 96374; 99285; 36415; 93005; 80053 ×2; 80048; 83605; 83690; 83735; 84100; 84484; 85025 ×2; 85027 ×2; 85610; 85730; 81003; 71046; 74174; G0378 ×4; C8929; J1940; Q9957; Q9967; 93306; 96366; 96372; 96376

== ENCOUNTER 2023-11-20 12:38 | Emergency (ER) | payer OTHER ==
[2023-11-20 12:45] VITALS: RESP 18; TEMP 97.4
--- NOTE | 2023-11-20 13:10 | ED ---
General Adult HPI - General Chief complaint: Shortness of Breath Stated complaint: SOB/ hot Time Seen by Provider: 11/20/23 12:50 Source: patient, RN notes reviewed, old records reviewed Mode of arrival: wheelchair Limitations: no limitations - History of Present Illness Initial comments: 53-year-old female who presents to the emergency department complaining of difficulty breathing since last night. Patient states she has been a smoker for about a month ago. Patient states she also had a heart attack in the past and has a pacemaker defibrillator. Patient states she has an occasional cough but she always has cough. Patient denies any fever or chills. Patient denies any chest pain or palpitation. Patient has no abdominal pain. Patient states she lives at home without any condition she has fans on but she does not know if that heat is making her have a difficult time breathing. Patient denies any swelling to her legs or calf tenderness. - Related Data Home Medications Medication Instructions Recorded Confirmed Famotidine [Pepcid] 20 mg PO DAILY@1100 12/15/21 10/15/23 Butalb/APAP/Caff 50-325-40Mg 1 tab PO Q8H PRN 09/18/22 10/15/23 [Fioricet 50-325-40] Levothyroxine Sodium [Synthroid] 175 mcg PO DAILY 09/18/22 10/15/23 Linaclotide [Linzess] 72 mcg PO DAILY PRN 10/15/23 10/15/23 Midodrine HCl [ProAmatine] 10 mg PO TID PRN 10/15/23 10/15/23 Pravastatin Sodium [Pravachol] 20 mg PO HS 10/15/23 10/15/23 Previous Rx's Medication Instructions Recorded Aspirin 81 mg PO DAILY #30 tab 10/17/23 Dapagliflozin Propanediol [Farxiga] 10 mg PO DAILY #30 tab 10/17/23 Isosorbide Mononitrate ER [Imdur] 30 mg PO DAILY #30 tab 10/17/23 Spironolactone [Aldactone] 25 mg PO DAILY #30 tab 10/17/23 Allergies Allergy/AdvReac Type Severity Reaction Status Date / Time venom-honey bee Allergy Severe Anaphylaxis Verified 10/15/23 17:27 [bee venom (honey bee)] codeine phosphate AdvReac Chest Pain Verified 10/15/23 17:27 [From Tylenol-Codeine #3] tramadol HCl [From Ultram] AdvReac Hallucinati Verified 10/15/23 17:27 ons BIPOLAR MEDICATION AdvReac Unknown States it Uncoded 10/15/23 17:27 "knocks her out" Review of Systems ROS Statement: Those systems with pertinent positive or pertinent negative responses have been documented in the HPI. ROS Other: All systems not noted in ROS Statement are negative. Past Medical History Past Medical History: Atrial Fibrillation, Coronary Artery Disease (CAD), Cancer, Chest Pain / Angina, CVA/TIA, GERD/Reflux, Myocardial Infarction (SC), Skin Disorder, Thyroid Disorder Additional Past Medical History / Comment(s): LEAKY heart valve, IBS, hx CERVICAL CA, cardiomyopathy, BRONCHITIS, cervical DDD, facet joint syndrome, hx goiter. HX SEPSIS, TIA 11/2016. CYST LT KIDNEY. hx stomach ulcer. Last Myocardial Infarction Date:: 2007 History of Any Multi-Drug Resistant Organisms: None Reported Past Surgical History: Breast Surgery, Cardiac Ablation, Cholecystectomy, Coronary Bypass/CABG, Heart Catheterization, Hysterectomy, Orthopedic Surgery, Pacemaker, Tubal Ligation Additional Past Surgical History / Comment(s): THYROIDECTOMY, surgery for CERVICAL CANCER, LT BREAST BX X4, PAIN CLINIC PROCEDURES, LEFT ELBOW surgery, QUADRUPLE BYPASS 2016, MARSHALL eye surgery age 5. Past Anesthesia/Blood Transfusion Reactions: Motion Sickness, Postoperative Nausea & Vomiting (PONV) Additional Past Anesthesia/Blood Transfusion Reaction / Comment(s): SOME DIFFICULTY WAKING UP. DAUGHTER HAS DIFFICULTY WAKING UP . Type of Cardiac Device: AICD Device Placement Date:: 09/2023 Past Psychological History: Anxiety, Bipolar, Depression, Panic Disorder Smoking Status: Current every day smoker Past Alcohol Use History: Rare Past Drug Use History: Marijuana - Past Family History Father Family Medical History: Cancer Mother Additional Family Medical History / Comment(s): QUESTIONABLE "HEART PROBLEM AND TRIPLE BYPASS" General Exam - General Exam Comments Initial Comments: GENERAL: Patient is well-developed and well-nourished. Patient is nontoxic and well- hydrated and is in no acute distress. ENT: Neck is soft and supple. No significant lymphadenopathy is noted. Oropharynx is clear. Moist mucous membranes. Neck has full range of motion without eliciting any pain. EYES: The sclera were anicteric and conjunctiva were pink and moist. Extraocular movements were intact and pupils were equal round and reactive to light. Eyelids were unremarkable. PULMONARY: Unlabored respirations. Good breath sounds bilaterally. No audible rales rhonchi or wheezing was noted. CARDIOVASCULAR: There is a regular rate and rhythm without any murmurs gallops or rubs. ABDOMEN: Soft and nontender with normal bowel sounds. SKIN: Skin is clear with no lesions or rashes and otherwise unremarkable. NEUROLOGIC: Patient is alert and oriented x3. Cranial nerves II through XII are grossly intact. Motor and sensory are also intact. Normal speech, volume and content. Symmetrical smile. MUSCULOSKELETAL: Normal extremities with adequate strength and full range of motion. LYMPHATICS: No significant lymphadenopathy is noted PSYCHIATRIC: Normal psychiatric evaluation. Limitations: no limitations Course Vital Signs 11/20/23 12:39 Temperature 97.4 F L Pulse Rate 89 Respiratory 18 Rate Blood Pressure 135/103 O2 Sat by Pulse 100 Oximetry Medical Decision Making - Medical Decision Making EKG is interpreted by myself. EKG shows a paced rhythm at 81 bpm VT interval is 162 QRS is 142 QT interval is 454 QTc is 492. Patient EKG shows no ST segment ovation or depression. Was pt. sent in by a medical professional or institution (, PA, ROOFING LABORER, urgent care, hospital, or correction...) When possible be specific @ -No Did you speak to anyone other than the patient for history (EMS, parent, family, police, friend...)? What history was obtained from this source @ -No Did you review nursing and triage notes (agree or disagree)? Why? @ -I reviewed and agree with nursing and triage notes Were old charts reviewed (outside hosp., previous admission, EMS record, old EKG, old radiological studies, urgent care reports/EKG's, correction records)? Report findings @ -No old charts were reviewed Differential Diagnosis (chest pain, altered mental status, abdominal pain women, abdominal pain men, vaginal bleeding, weakness, fever, dyspnea, syncope, headache, dizziness, GI bleed, back pain, seizure, CVA, palpatations, mental health, musculoskeletal)? @ -Differential Dyspnea: Coronary syndrome, arrhythmia, tamponade, asthma, COPD, pulmonary embolism, pneumonia, pneumothorax, pulmonary effusion, anaphylaxis, diabetic ketoacidosis, flailed chest, pulmonary contusion, diaphragmatic rupture, anemia, neuromuscular , this is not meant to be an all-inclusive list. EKG interpreted by me (3pts min.). @ -As above X-rays interpreted by me (1pt min.). @ -Chest x-ray shows no acute abnormality CT interpreted by me (1pt min.). @ -None done U/S interpreted by me (1pt. min.). @ -None done What testing was considered but not performed or refused? (CT, X-rays, U/S, labs)? Why? @ -None What meds were considered but not given or refused? Why? @ -None Did you discuss the management of the patient with other professionals (professionals i.e. DrBessie, PA, ROOFING LABORER, lab, RT, psych nurse, social media developer, computer repair instructor, teacher, radiation officer, upper caser)? Give summary @ -No Was smoking cessation discussed for >3mins.? @ -No Was critical care preformed (if so, how long)? @ -No Were there social determinants of health that impacted care today? How? (Homelessness, low income, unemployed, alcoholism, drug addiction, transportation, low edu. Level, literacy, decrease access to med. care, fci, rehab)? @ -No Was there de-escalation of care discussed even if they declined (Discuss DNR or withdrawal of care, Hospice)? DNR status @ -No What co-morbidities impacted this encounter? (DM, HTN, Smoking, COPD, CAD, Cancer, CVA, ARF, Chemo, Hep., AIDS, mental health diagnosis, sleep apnea, morbid obesity)? @ -None Was patient admitted / discharged? Hospital course, mention meds given and route, prescriptions, significant lab abnormalities, going to OR and other pertinent info. @ -Will back and reevaluated the patient and she was sleeping and when I woke her up she stated she felt much better and was no longer short of breath Undiagnosed new problem with uncertain prognosis? @ -No Drug Therapy requiring intensive monitoring for toxicity (Heparin, Nitro, Insulin, Cardizem)? @ -No Were any procedures done? @ -No Diagnosis/symptom? @ -Dyspnea Acute, or Chronic, or Acute on Chronic? @ -Acute Uncomplicated (without systemic symptoms) or Complicated (systemic symptoms)? @ -Complicated Side effects of treatment? @ -No Exacerbation, Progression, or Severe Exacerbation? @ -No Poses a threat to life or bodily function? How? (Chest pain, USA, SC, pneumonia, PE, COPD, DKA, ARF, appy, cholecystitis, CVA, Diverticulitis, Homicidal, Shepard icidal, threat to staff... and all critical care pts) @ -No - Lab Data Result diagrams: 11/20/23 13:23 11/20/23 13:23 Lab Results 11/20/23 11/20/23 11/20/23 Range/Units 13:23 13:23 13:23 WBC 8.6 (3.8-10.6) k/uL RBC 4.95 (3.80-5.40) m/uL Hgb 14.8 (11.4-16.0) gm/dL Hct 48.2 H (34.0-46.0) % MCV 97.3 D (80.0-100.0) fL MCH 29.9 (25.0-35.0) pg MCHC 30.7 L (31.0-37.0) g/dL RDW 14.6 (11.5-15.5) % Plt Count 182 (150-450) k/uL MPV 8.5 Neutrophils % 61 % Lymphocytes % 30 % Monocytes % 6 % Eosinophils % 1 % Basophils % 1 % Neutrophils # 5.3 (1.3-7.7) k/uL Lymphocytes # 2.6 (1.0-4.8) k/uL Monocytes # 0.5 (0-1.0) k/uL Eosinophils # 0.1 (0-0.7) k/uL Basophils # 0.1 (0-0.2) k/uL Hypochromasia Slight Sodium 136 L (137-145) mmol/L Potassium 4.3 (3.5-5.1) mmol/L Chloride 104 (98-107) mmol/L Carbon Dioxide 20 L (22-30) mmol/L Anion Gap 12 mmol/L BUN 11 (7-17) mg/dL Creatinine 0.68 (0.52-1.04) mg/dL Est GFR (CKD-EPI)AfAm >90 (>60 ml/min/1.73 sqM) Est GFR (CKD-EPI)NonAf >90 (>60 ml/min/1.73 sqM) Glucose 113 H (74-99) mg/dL Plasma Lactic Acid Elieser 2.6 H* (0.7-2.0) mmol/L Calcium 9.3 (8.4-10.2) mg/dL Magnesium 1.6 (1.6-2.3) mg/dL Total Bilirubin 1.6 H (0.2-1.3) mg/dL AST 76 H (14-36) U/L ALT 95 H (4-34) U/L Alkaline Phosphatase 84 (38-126) U/L Troponin I (0.000-0.034) ng/mL Total Protein 6.6 (6.3-8.2) g/dL Albumin 4.1 (3.5-5.0) g/dL 11/20/23 Range/Units 13:23 WBC (3.8-10.6) k/uL RBC (3.80-5.40) m/uL Hgb (11.4-16.0) gm/dL Hct (34.0-46.0) % MCV (80.0-100.0) fL MCH (25.0-35.0) pg MCHC (31.0-37.0) g/dL RDW (11.5-15.5) % Plt Count (150-450) k/uL MPV Neutrophils % % Lymphocytes % % Monocytes % % Eosinophils % % Basophils % % Neutrophils # (1.3-7.7) k/uL Lymphocytes # (1.0-4.8) k/uL Monocytes # (0-1.0) k/uL Eosinophils # (0-0.7) k/uL Basophils # (0-0.2) k/uL Hypochromasia Sodium (137-145) mmol/L Potassium (3.5-5.1) mmol/L Chloride (98-107) mmol/L Carbon Dioxide (22-30) mmol/L Anion Gap mmol/L BUN (7-17) mg/dL Creatinine (0.52-1.04) mg/dL Est GFR (CKD-EPI)AfAm (>60 ml/min/1.73 sqM) Est GFR (CKD-EPI)NonAf (>60 ml/min/1.73 sqM) Glucose (74-99) mg/dL Plasma Lactic Acid Elieser (0.7-2.0) mmol/L Calcium (8.4-10.2) mg/dL Magnesium (1.6-2.3) mg/dL Total Bilirubin (0.2-1.3) mg/dL AST (14-36) U/L ALT (4-34) U/L Alkaline Phosphatase (38-126) U/L Troponin I 0.027 (0.000-0.034) ng/mL Total Protein (6.3-8.2) g/dL Albumin (3.5-5.0) g/dL Disposition Clinical Impression: Dyspnea Disposition: HOME SELF-CARE Condition: Good Instructions (If sedation given, give patient instructions): Dyspnea (ED) Is patient prescribed a controlled substance at d/c from ED?: No Referrals: Tremayne Dobbs DO [Primary Care Provider] - 1-2 days Time of Disposition: 15:40
--- NOTE | 2023-11-20 13:38 | XR ---
EXAMINATION TYPE: XR chest 2V DATE OF EXAM: 11/20/2023 COMPARISON: 10/15/2023 INDICATION: Difficulty breathing TECHNIQUE: Frontal and lateral views of the chest are obtained. FINDINGS: The heart size is enlarged. Pacemaker overlies left chest. Sternotomy wires are in the midline. The pulmonary vasculature is normal. Previous right pleural effusion has resolved. Some minimal atelectasis may remain at the costophrenic angle IMPRESSION: 1. Minimal residual effusion or atelectasis right costophrenic angle pleural effusion is largely reso lved. 2. Cardiomegaly
[2023-11-20 13:43] LABS: Basophils # (A) 0.1 k/uL (0-0.2); Basophils % (A) 1 %; Eosinophils # (A) 0.1 k/uL (0-0.7); Eosinophils % (A) 1 %; HCT 48.2 % (34.0-46.0); HGB 14.8 gm/dL (11.4-16.0); Hypochromasia Slight; Lymphocytes # (A) 2.6 k/uL (1.0-4.8); Lymphocytes % (A) 30 %; MCH 29.9 pg (25.0-35.0); MCHC 30.7 g/dL (31.0-37.0); Mean Platelet Volume 8.5; Monocytes # (A) 0.5 k/uL (0-1.0); Monocytes % (A) 6 %; Neutrophils # (A) 5.3 k/uL (1.3-7.7); Neutrophils % (A) 61 %; Platelet Count 182 k/uL (150-450); RBC 4.95 m/uL (3.80-5.40); RDW 14.6 % (11.5-15.5); WBC 8.6 k/uL (3.8-10.6)
[2023-11-20 13:56] LABS: MCV 97.3 fL (80.0-100.0)
[2023-11-20 14:15] LABS: ALT 95 U/L (4-34); AST 76 U/L (14-36); African American GFR (CKD) >90 (>60 ml/min/1.73 sqM); Albumin 4.1 g/dL (3.5-5.0); Alkaline Phosphatase 84 U/L (38-126); Anion Gap 12 mmol/L; Blood Urea Nitrogen 11 mg/dL (7-17); Calcium 9.3 mg/dL (8.4-10.2); Carbon Dioxide 20 mmol/L (22-30); Chloride 104 mmol/L (98-107); Glucose 113 mg/dL (74-99); Magnesium 1.6 mg/dL (1.6-2.3); Non-African American GFR(CKD) >90 (>60 ml/min/1.73 sqM); Potassium 4.3 mmol/L (3.5-5.1); Sodium 136 mmol/L (137-145); Total Bilirubin 1.6 mg/dL (0.2-1.3); Total Protein 6.6 g/dL (6.3-8.2)
[2023-11-20] MEDS: SODIUM CHLORIDE 0.9% 1,000 ML IV ONE (15:44)
[2023-11-20 17:27] VITALS: BP 131/85; PULSE 90
== END 2023-11-20 17:31 | disposition home or self-care (01) ==
LOC: EC 12:38
DX: R06.00 Dyspnea, unspecified (principal); F17.200 Nicotine dependence, unspecified, uncomplicated; Z88.5 Allergy status to narcotic agent; Z88.6 Allergy status to analgesic agent; Z88.8 Allergy status to other drugs, medicaments and biological substances; Z90.49 Acquired absence of other specified parts of digestive tract; Z86.73 Personal history of transient ischemic attack (TIA), and cerebral infarction without residual deficits; Z91.030 Bee allergy status; Z95.1 Presence of aortocoronary bypass graft
CPT/HCPCS: 36415; 71046; 80053; 83605; 83735; 84484; 85025; 93005; 96360; 99285

== ENCOUNTER 2023-11-29 14:58 | Emergency (ER) | payer OTHER ==
[2023-11-29 16:03] LABS: HCT 47.8 % (34.0-46.0); HGB 14.6 gm/dL (11.4-16.0); Hypochromasia Moderate; MCH 29.5 pg (25.0-35.0); MCHC 30.5 g/dL (31.0-37.0); MCV 96.8 fL (80.0-100.0); Mean Platelet Volume 9.3; Platelet Count 208 k/uL (150-450); RBC 4.94 m/uL (3.80-5.40); RDW 14.9 % (11.5-15.5); WBC 6.4 k/uL (3.8-10.6)
[2023-11-29 16:08] LABS: INR 1.5 (<1.2); Partial Thromboplastin Time 25.3 sec (22.0-30.0); Prothrombin Time 15.8 sec (10.0-12.5)
[2023-11-29 16:13] LABS: ALT 48 U/L (4-34); AST 39 U/L (14-36); African American GFR (CKD) >90 (>60 ml/min/1.73 sqM); Albumin 3.5 g/dL (3.5-5.0); Alkaline Phosphatase 80 U/L (38-126); Anion Gap 8 mmol/L; Blood Urea Nitrogen 11 mg/dL (7-17); Calcium 9.1 mg/dL (8.4-10.2); Carbon Dioxide 22 mmol/L (22-30); Chloride 108 mmol/L (98-107); Glucose 115 mg/dL (74-99); Magnesium 1.5 mg/dL (1.6-2.3); Non-African American GFR(CKD) >90 (>60 ml/min/1.73 sqM); Potassium 3.9 mmol/L (3.5-5.1); Sodium 138 mmol/L (137-145); Total Bilirubin 1.9 mg/dL (0.2-1.3); Total Protein 5.8 g/dL (6.3-8.2)
[2023-11-29 16:26] LABS: Eosinophils # (M) 0.19 k/uL (0-0.7); Large Platelets Present; Lymphocytes # (M) 3.39 k/uL (1.0-4.8); Monocytes # (M) 0.38 k/uL (0-1.0); Neutrophils # (M) 2.43 k/uL (1.3-7.7); Neutrophils % (M) 38 %; Nucleated Red Blood Cells 0 /100 WBC (0-0); Polychromasia Present; Total Cells Counted 100
--- NOTE | 2023-11-29 16:31 | ED ---
General Adult HPI - General Chief complaint: Recheck/Abnormal Lab/Rx Stated complaint: abn EKG Time Seen by Provider: 11/29/23 15:27 Source: patient, EMS, RN notes reviewed, old records reviewed Mode of arrival: EMS - History of Present Illness Initial comments: Chief complaint of abnormal EKG. Patient has history of pacemaker. She was apparently sent by her primary care office with an abnormal EKG. Patient does report mild dyspnea. She has a history of atrial fibrillation, CAD. She denies specific chest pain. No fever. No cough. Patient states she was recently admi tted to the hospital. 53-year-old female - Related Data Home Medications Medication Instructions Recorded Confirmed Levothyroxine Sodium [Synthroid] 175 mcg PO DAILY 09/18/22 11/29/23 Linaclotide [Linzess] 72 mcg PO DAILY 10/15/23 11/29/23 Midodrine HCl [ProAmatine] 10 mg PO TID PRN 10/15/23 11/29/23 ALPRAZolam [Xanax] 1 mg PO BID 11/20/23 11/29/23 ALPRAZolam [Xanax] 2 mg PO HS 11/20/23 11/29/23 Albuterol Inhaler [Ventolin Hfa 2 puff INHALATION RT-Q6H PRN 11/20/23 11/29/23 Inhaler] Atorvastatin [Lipitor] 40 mg PO HS 11/20/23 11/29/23 HYDROcodone/APAP 10-325MG [[place] 1 tab PO QID PRN 11/20/23 11/29/23 10-325] Fluconazole [Diflucan] 150 mg PO Q48H 11/29/23 11/29/23 Naloxone HCl [Narcan] 4 mg NASAL DIRECTED PRN 11/29/23 11/29/23 Nystatin 100,000 Unit/gm Powd 1 applic TOPICAL BID PRN 11/29/23 11/29/23 [Mycostatin Powder] Previous Rx's Medication Instructions Recorded Aspirin 81 mg PO DAILY #30 tab 10/17/23 Allergies Allergy/AdvReac Type Severity Reaction Status Date / Time venom-honey bee Allergy Severe Anaphylaxis Verified 11/29/23 18:03 [bee venom (honey bee)] codeine phosphate AdvReac Chest Pain Verified 11/29/23 18:03 [From Tylenol-Codeine #3] tramadol HCl [From Ultram] AdvReac Hallucinati Verified 11/29/23 18:03 ons BIPOLAR MEDICATION AdvReac Unknown States it Uncoded 11/29/23 18:03 "knocks her out" Review of Systems ROS Statement: Those systems with pertinent positive or pertinent negative responses have been documented in the HPI. ROS Other: All systems not noted in ROS Statement are negative. Past Medical History Past Medical History: Atrial Fibrillation, Coronary Artery Disease (CAD), Cancer, Chest Pain / Angina, CVA/TIA, GERD/Reflux, Myocardial Infarction (VT), Skin Disorder, Thyroid Disorder Additional Past Medical History / Comment(s): LEAKY heart valve, IBS, hx CERVICAL CA, cardiomyopathy, BRONCHITIS, cervical DDD, facet joint syndrome, hx goiter. HX SEPSIS, TIA 11/2016. CYST LT KIDNEY. hx stomach ulcer. Last Myocardial Infarction Date:: 2007 History of Any Multi-Drug Resistant Organisms: None Reported Past Surgical History: Breast Surgery, Cardiac Ablation, Cholecystectomy, Coronary Bypass/CABG, Heart Catheterization, Hysterectomy, Orthopedic Surgery, Pacemaker, Tubal Ligation Additional Past Surgical History / Comment(s): THYROIDECTOMY, surgery for CERVICAL CANCER, LT BREAST BX X4, PAIN CLINIC PROCEDURES, LEFT ELBOW surgery, QUADRUPLE BYPASS 2016, MARSHALL eye surgery age 5. Past Anesthesia/Blood Transfusion Reactions: Motion Sickness, Postoperative Nausea & Vomiting (PONV) Additional Past Anesthesia/Blood Transfusion Reaction / Comment(s): SOME DIFFICULTY WAKING UP. DAUGHTER HAS DIFFICULTY WAKING UP . Type of Cardiac Device: AICD Device Placement Date:: 09/2023 Past Psychological History: Anxiety, Bipolar, Depression, Panic Disorder Smoking Status: Current every day smoker Past Alcohol Use History: Rare Past Drug Use History: Marijuana - Past Family History Father Family Medical History: Cancer Mother Additional Family Medical History / Comment(s): QUESTIONABLE "HEART PROBLEM AND TRIPLE BYPASS" General Exam General appearance: alert, in no apparent distress Head exam: Present: atraumatic, normocephalic Eye exam: Present: normal appearance, PERRL ENT exam: Present: normal exam Neck exam: Present: normal inspection. Absent: tenderness, meningismus Respiratory exam: Present: normal lung sounds bilaterally. Absent: respiratory distress Cardiovascular Exam: Present: regular rate, normal rhythm GI/Abdominal exam: Present: soft. Absent: distended, tenderness, guarding Extremities exam: Present: normal inspection, normal capillary refill Neurological exam: Present: alert, oriented X3, CN II-XII intact. Absent: motor sensory deficit Psychiatric exam: Present: normal affect, normal mood Skin exam: Present: warm, dry, intact, normal color Course Vital Signs 11/29/23 11/29/23 11/29/23 15:08 15:29 16:00 Temperature 97.7 F Pulse Rate 80 80 Pulse Rate [ 77 Treatment Specialist ] Respiratory 18 18 Rate Blood Pressure 134/103 116/85 O2 Sat by Pulse 96 97 Oximetry 11/29/23 11/29/23 16:23 18:12 Temperature Pulse Rate 80 75 Pulse Rate [ Treatment Specialist ] Respiratory 18 16 Rate Blood Pressure 130/103 123/96 O2 Sat by Pulse 99 95 Oximetry Medical Decision Making - Medical Decision Making Was pt. sent in by a medical professional or institution (, PA, [employer], urgent care, hospital, or intermediate...) When possible be specific @ -[No] Did you speak to anyone other than the patient for history (EMS, parent, family, police, friend...)? What history was obtained from this source @ -[No] Did you review nursing and triage notes (agree or disagree)? Why? @ -[I reviewed and agree with nursing and triage notes] Were old charts reviewed (outside hosp., previous admission, EMS record, old EKG, old radiological studies, urgent care reports/EKG's, intermediate records)? Report findings @ -[No old charts were reviewed] Differential Diagnosis (chest pain, altered mental status, abdominal pain women, abdominal pain men, vaginal bleeding, weakness, fever, dyspnea, syncope, headache, dizziness, GI bleed, back pain, seizure, CVA, palpatations, mental health, musculoskeletal)? @ -[not applicable] EKG interpreted by me (3pts min.). @ -Ventricular paced rhythm rate of 78, AL interval 150, QRS duration 158, QTc 526 X-rays interpreted by me (1pt min.). @Chest x-ray showing mild pulmonary vascular congestion. CT interpreted by me (1pt min.). @ -[None done] U/S interpreted by me (1pt. min.). @ -[None done] What testing was considered but not performed or refused? (CT, X-rays, U/S, labs)? Why? @ -[None] What meds were considered but not given or refused? Why? @ -[None] Did you discuss the management of the patient with other professionals (professionals i.e. , PA, [employer], lab, RT, psych nurse, social work instructor, marshmallow runner, teacher, ship's officer, block and case maker)? Give summary @ -[No] Was smoking cessation discussed for >3mins.? @ -[No] Was critical care preformed (if so, how long)? @ -[No] Were there social determinants of health that impacted care today? How? (Homelessness, low income, unemployed, alcoholism, drug addiction, transportation, low edu. Level, literacy, decrease access to med. care, [facility], rehab)? @ -[No] Was there de-escalation of care discussed even if they declined (Discuss DNR or withdrawal of care, Hospice)? DNR status @ -[No] What co-morbidities impacted this encounter? (DM, HTN, Smoking, COPD, CAD, Cancer, CVA, ARF, Chemo, Hep., AIDS, mental health diagnosis, sleep apnea, morbid obesity)? @ -[History of CAD, atrial fibrillation status post pacemaker. Was patient admitted / discharged? Hospital course, mention meds given and route, prescriptions, significant lab abnormalities, going to OR and other pertinent info. @ -Patient was apparently sent from the primary care with abnormal EKG. Patient is in a paced rhythm with history of atrial fibrillation. She has no significant complaints when pressed she does states she has mild dyspnea. She has chronic stable lab abnormalities. Chest x-ray shows mild pulmonary vascular congestion. Patient is given a dose of Lasix. She is eager for discharge. Without further complaint. Undiagnosed new problem with uncertain prognosis? @ -[No] Drug Therapy requiring intensive monitoring for toxicity (Heparin, Nitro, Insulin, Cardizem)? @ -[No] Were any procedures done? @ -[No] Diagnosis/symptom? @ -Paced rhythm Acute, or Chronic, or Acute on Chronic? @ -[Chronic Uncomplicated (without systemic symptoms) or Complicated (systemic symptoms)? @ -[default] Side effects of treatment? @ -[No] Exacerbation, Progression, or Severe Exacerbation? @ -[No] Poses a threat to life or bodily function? How? (Chest pain, USA, VT, pneumonia, PE, COPD, DKA, ARF, appy, cholecystitis, CVA, Diverticulitis, Homicidal, Suicidal, threat to staff... and all critical care pts) @ -[No] - Lab Data Result diagrams: 11/29/23 15:44 11/29/23 15:44 Lab Results 11/29/23 11/29/23 11/29/23 Range/Units 15:44 15:44 15:44 WBC 6.4 (3.8-10.6) k/uL RBC 4.94 (3.80-5.40) m/uL Hgb 14.6 (11.4-16.0) gm/dL Hct 47.8 H (34.0-46.0) % MCV 96.8 (80.0-100.0) fL MCH 29.5 (25.0-35.0) pg MCHC 30.5 L (31.0-37.0) g/dL RDW 14.9 (11.5-15.5) % Plt Count 208 (150-450) k/uL MPV 9.3 Neutrophils % (Manual) 38 % Lymphocytes % (Manual) 53 % Monocytes % (Manual) 6 % Eosinophils % (Manual) 3 % Neutrophils # (Manual) 2.43 (1.3-7.7) k/uL Lymphocytes # (Manual) 3.39 (1.0-4.8) k/uL Monocytes # (Manual) 0.38 (0-1.0) k/uL Eosinophils # (Manual) 0.19 (0-0.7) k/uL Nucleated RBCs 0 (0-0) /100 WBC Manual Slide Review Performed Large Platelets Present Polychromasia Present Hypochromasia Moderate PT 15.8 H (10.0-12.5) sec INR 1.5 H (<1.2) APTT 25.3 (22.0-30.0) sec Sodium 138 (137-145) mmol/L Potassium 3.9 (3.5-5.1) mmol/L Chloride 108 H (98-107) mmol/L Carbon Dioxide 22 (22-30) mmol/L Anion Gap 8 mmol/L BUN 11 (7-17) mg/dL Creatinine 0.73 (0.52-1.04) mg/dL Est GFR (CKD-EPI)AfAm >90 (>60 ml/min/1.73 sqM) Est GFR (CKD-EPI)NonAf >90 (>60 ml/min/1.73 sqM) Glucose 115 H (74-99) mg/dL Calcium 9.1 (8.4-10.2) mg/dL Magnesium 1.5 L (1.6-2.3) mg/dL Total Bilirubin 1.9 H (0.2-1.3) mg/dL AST 39 H (14-36) U/L ALT 48 H (4-34) U/L Alkaline Phosphatase 80 (38-126) U/L Troponin I (0.000-0.034) ng/mL Total Protein 5.8 L (6.3-8.2) g/dL Albumin 3.5 (3.5-5.0) g/dL 11/29/23 Range/Units 15:44 WBC (3.8-10.6) k/uL RBC (3.80-5.40) m/uL Hgb (11.4-16.0) gm/dL Hct (34.0-46.0) % MCV (80.0-100.0) fL MCH (25.0-35.0) pg MCHC (31.0-37.0) g/dL RDW (11.5-15.5) % Plt Count (150-450) k/uL MPV Neutrophils % (Manual) % Lymphocytes % (Manual) % Monocytes % (Manual) % Eosinophils % (Manual) % Neutrophils # (Manual) (1.3-7.7) k/uL Lymphocytes # (Manual) (1.0-4.8) k/uL Monocytes # (Manual) (0-1.0) k/uL Eosinophils # (Manual) (0-0.7) k/uL Nucleated RBCs (0-0) /100 WBC Manual Slide Review Large Platelets Polychromasia Hypochromasia PT (10.0-12.5) sec INR (<1.2) APTT (22.0-30.0) sec Sodium (137-145) mmol/L Potassium (3.5-5.1) mmol/L Chloride (98-107) mmol/L Carbon Dioxide (22-30) mmol/L Anion Gap mmol/L BUN (7-17) mg/dL Creatinine (0.52-1.04) mg/dL Est GFR (CKD-EPI)AfAm (>60 ml/min/1.73 sqM) Est GFR (CKD-EPI)NonAf (>60 ml/min/1.73 sqM) Glucose (74-99) mg/dL Calcium (8.4-10.2) mg/dL Magnesium (1.6-2.3) mg/dL Total Bilirubin (0.2-1.3) mg/dL AST (14-36) U/L ALT (4-34) U/L Alkaline Phosphatase (38-126) U/L Troponin I 0.025 (0.000-0.034) ng/mL Total Protein (6.3-8.2) g/dL Albumin (3.5-5.0) g/dL Disposition Clinical Impression: Pacemaker, Paced cardiac rhythm Disposition: HOME SELF-CARE Condition: Fair Instructions (If sedation given, give patient instructions): Pacemaker (DC) Is patient prescribed a controlled substance at d/c from ED?: No Referrals: Tremayne Dobbs DO [Primary Care Provider] - 1-2 days Time of Disposition: 18:52
--- NOTE | 2023-11-29 16:48 | XR ---
EXAMINATION TYPE: XR chest 2V DATE OF EXAM: 11/29/2023 COMPARISON: 11/20/2023 HISTORY: 53-year-old female shortness of breath, difficulty in breathing TECHNIQUE: PA and lateral views FINDINGS: Left anterior chest wall ICD generator with right atrial and 2 right ventricular leads. Median sterno kristen wires and post-CABG clips. Heart mildly enlarged. Hazy lower lung densities probably relating to overlying soft tissue. There is mild interstitial prominence. No pleural effusion on the lateral vie w. IMPRESSION: CHF with mild pulmonary vascular congestion. No yamila pulmonary edema.
[2023-11-29] MEDS: FUROSEMIDE 10 MG/ML 4 ML VIAL IV STA (19:05)
[2023-11-29 19:10] VITALS: BP 140/109; PULSE 80; RESP 18; TEMP 98.4
== END 2023-11-29 19:16 | disposition home or self-care (01) ==
LOC: EC 14:58
DX: I49.8 Other specified cardiac arrhythmias (principal); I48.91 Unspecified atrial fibrillation; F17.200 Nicotine dependence, unspecified, uncomplicated; Z86.79 Personal history of other diseases of the circulatory system; Z95.0 Presence of cardiac pacemaker; Z88.5 Allergy status to narcotic agent; Z91.030 Bee allergy status; Z88.8 Allergy status to other drugs, medicaments and biological substances
CPT/HCPCS: 36415; 93005; 80053; 83735; 84484; 85025; 85610; 85730; 71046; 99285; 96374; J1940